=== PATIENT | male | born 1955 | race Caucasian/White ===

== ENCOUNTER 2019-02-09 12:21 | Outpatient (CLI) | payer BC, SELFPAY ==
[2019-02-09 13:40] LABS: TSH (W/Ref FT4) 1.81 uIU/mL (0.358-3.74)
[2019-02-09 13:56] LABS: Vitamin D 25 Total 25.3 ng/ml (30-100)
[2019-02-10 09:18] LABS: PSA, Screening 0.2 ng/ml (0-4.5)
== END 2019-02-09 12:41 ==
PROVIDERS: PCP Student in an Organized Health Care Education/Training Program; Visit Provider Student in an Organized Health Care Education/Training Program
DX: E03.9 Hypothyroidism, unspecified (principal); E59 Dietary selenium deficiency; Z80.42 Family history of malignant neoplasm of prostate; Z12.5 Encounter for screening for malignant neoplasm of prostate
CPT/HCPCS: 36415; 82306; 84153; 84443

== ENCOUNTER 2019-03-23 01:34 | Outpatient (CLI) | payer BC, SELFPAY ==
--- NOTE | 2019-03-23 11:00 | DI.CTLCSR_ITS ---
SYMPTOM/DIAGNOSIS: H/O SMOKING, WITH FOCAL CHANGES ON CT IN 12/1017, Z87.891,Z12.[address] FOR LUNG CANCER SCREENING: Comparison is made with 01/15/18. A low dose noncontrast exam was performed. The heart size is normal. No pleural or pericardial effusions or adenopathy is seen. There is a stable tiny nodule in the right lower lobe. No additional nodules are identified. There are no suspicious bony abnormalities. IMPRESSION: Lung rads, category 2. Stable 3 mm. nodule in the right lower lobe. Lung-RAD Category: Lung RADS Category 2- Benign Appearance/Behavior
== END 2019-03-23 01:54 ==
PROVIDERS: PCP Student in an Organized Health Care Education/Training Program; Visit Provider Student in an Organized Health Care Education/Training Program
DX: Z12.2 Encounter for screening for malignant neoplasm of respiratory organs (principal); Z87.891 Personal history of nicotine dependence; R91.1 Solitary pulmonary nodule
CPT/HCPCS: G0297

== ENCOUNTER 2019-04-13 08:58 | Outpatient (CLI) | payer BC, SELFPAY ==
--- NOTE | 2019-04-13 09:40 | DI.RAD_ITS ---
SYMPTOM/DIAGNOSIS: RIGHT KNEE PJAIN, DJD RIGHT KNEE RIGHT KNEE: Three views. The lateral view is suboptimal. The ordering physician requested no repeat imaging. Mild narrowing is seen in the medial femoral tibial joint space. Mild periarticular spurring is seen in the medial femoral tibial joint and the posterior patella. The bones appear intact. The soft tissues are unremarkable. IMPRESSION: Mild osteoarthritis right knee.
== END 2019-04-13 09:18 ==
PROVIDERS: PCP Student in an Organized Health Care Education/Training Program; Visit Provider Orthopaedic Surgery
DX: M25.561 Pain in right knee (principal); M17.11 Unilateral primary osteoarthritis, right knee
CPT/HCPCS: 73562

== ENCOUNTER 2019-06-06 12:02 | Emergency (ER) | payer BC, SELFPAY ==
[2019-06-06 12:05] VITALS: BP 153/80; PULSE 84; RESP 16; TEMP 36.6; O2SAT 96
[2019-06-06] MEDS: predniSONE 20 MG TAB 40 MG PO (14:16)
[2019-06-06] MEDS: diphenhydrAMINE 25 MG CAP PO (14:16)
--- NOTE | 2019-06-06 14:58 | ED.GENADUL_ITS ---
Discharge Plan Disposition Patient Disposition: HOME Condition: Improving Discharge Details Chief Complaint: RashLesion Clinical Impression: Urticaria of unknown origin Primary Care Provider: Lorie Holliday ED Provider: Jose Champange Home Meds and New Rx's Prescriptions: Continued (DME) lancets [OneTouch Delica Lancets] 33 gauge misc 1 ea Miscellaneous DAILY Qty: 90 RF: 3 cholecalciferol (vitamin D3) [Vitamin D3] 1,000 UNIT capsule 1,000 unit PO BID Qty: 100 RF: 6 (DME) OneTouch Verio 1 EACH strip 1 ea Miscellaneous DAILY Qty: 90 RF: 3 levothyroxine 75 mcg tablet 75 mcg PO DAILY Qty: 90 RF: 3 omeprazole 20 mg capsule,delayed release(DR/EC) 20 mg PO DAILY Qty: 90 RF: 1 oxycodone 15 mg tablet 15 mg PO Q8H MDD 3 Qty: 84 RF: 0 methadone 10 mg tablet 10 mg PO HS MDD 15mg Qty: 14 RF: 0 methadone 5 mg tablet 5 mg PO DAILY MDD 15mg Qty: 14 RF: 0 No Action red yeast rice 600 mg capsule 1,200 mg PO DAILY RF: 0 clonidine HCl 0.1 mg tablet 0.1 mg PO BID Qty: 180 RF: 3 methadone 10 mg tablet 10 mg PO Q6H MDD 1.5 Qty: 21 RF: 0 Discharge Instructions Instructions: Urticaria (ED) Additional Instructions: Return to the emergency department for any new or significant worsening of symptoms, difficulty breathing, rapid spread of the rash. Otherwise take medication as prescribed and follow-up with your primary care provider as needed. It is recommended that you stop your new mouthwash as this may be contributing to your symptoms and call your dental provider. Referrals: Lorie Holliday, [Primary Care Provider] - (As needed for reassessment) Discharge Data Discharge Date/Time-TO BE ENTERED AT DEPARTURE: 06/06/19 15:11 Medical Decision Making Patient presenting to the emergency department for chief complaint of hives and rash. Patient states that he started noticing this last night and is continued to spread throughout today. Patient states that he was exposed to some Freon when repairing her freezer yesterday but mostly sprayed in his face compared to anywhere else. Upon further questioning patient does state that he started a new mouthwash rinse that was given him to by his dentist 2 days ago. Physical exam shows no respiratory distress, patent airway, lips tongue and oropharynx are all normal with clear lung sounds no stridor no swelling no wheezing. Patient does have diffuse urticaria mostly on upper extremities, neck, back, and inner thighs. Patient states that this is not where the Freon sprayed so that this seems abnormal. Concern for this possibly being related to the medicated mouthwash that patient started. He was informed to stop this. I do not feel that patient needs epinephrine at this time but patient was given prednisone, Benadryl, and Zantac. Patient reassessed and shows no new or worsening symptoms and some improvement of urticaria. Patient was placed upon Zantac and prednisone and they state they have at home Claritin or can continuous pickling line pickler Benadryl which I feel is appropriate for any further itching. Return precautions were discussed. After discussion of diagnosis and plan of care patient has no further needs, questions, or concerns and states clear understanding to return to the emergency department for any worsening symptoms. HPI General Mode of arrival: ambulatory . Date/Time Provider Initiated Documentation: 06/06/19 12:15 . Limitations to Documentation: no limitations . Information obtained by: patient and RN notes reviewed . History of Present Illness 63 year old M presents to the emergency department with the chief complaint of rash, Quality is described as other (denies pain, states itching), Patient started experiencing this day(s) (1) and it has been c onstant. No relieving factors improve symptom(s), Patient notes no other symptoms.. Patient did receive the following treatments prior to arrival, none Related Data Home Medications Medication Instructions Recorded Confirmed cholecalciferol (vitamin D3) 1,000 unit PO BID #100 tab-cap 02/12/18 06/10/19 [Vitamin D3] OneTouch Verio #90 strip 05/26/18 06/10/19 levothyroxine 75 mcg tablet 75 mcg PO DAILY #90 tab-cap 11/18/18 06/10/19 lancets 33 gauge #90 ea 01/07/19 06/10/19 omeprazole 20 mg capsule,delayed 20 mg PO DAILY #90 cap 03/16/19 06/10/19 release oxycodone 15 mg tablet 15 mg PO Q8H #84 tab MDD 3 04/21/19 06/10/19 methadone 10 mg tablet 10 mg PO HS #14 tab MDD 15mg 05/21/19 06/10/19 methadone 5 mg tablet 5 mg PO DAILY #14 tab MDD 15mg 05/22/19 06/10/19 clonidine HCl 0.1 mg tablet 0.1 mg PO BID #180 tab-cap 06/10/19 06/10/19 methadone 10 mg tablet 10 mg PO Q6H #21 tab MDD 1.5 06/10/19 06/10/19 red yeast rice 600 mg capsule 1,200 mg PO DAILY cap 06/10/19 06/10/19 Previous Rx's Medication Instructions Recorded cholecalciferol (vitamin D3) 1,000 unit PO BID #100 tab-cap 02/12/18 [Vitamin D3] OneTouch Verio #90 strip 05/26/18 levothyroxine 75 mcg tablet 75 mcg PO DAILY #90 tab-cap 11/18/18 lancets 33 gauge #90 ea 01/07/19 omeprazole 20 mg capsule,delayed 20 mg PO DAILY #90 cap 03/16/19 release oxycodone 15 mg tablet 15 mg PO Q8H #84 tab MDD 3 04/21/19 methadone 10 mg tablet 10 mg PO HS #14 tab MDD 15mg 05/21/19 methadone 5 mg tablet 5 mg PO DAILY #14 tab MDD 15mg 05/22/19 clonidine HCl 0.1 mg tablet 0.1 mg PO BID #180 tab-cap 06/10/19 methadone 10 mg tablet 10 mg PO Q6H #21 tab MDD 1.5 06/10/19 Allergies Allergy/AdvReac Type Severity Reaction Status Date / Time escitalopram oxalate AdvReac Intermediate palpitation Verified 06/10/19 17:14 [From Lexapro] s paroxetine AdvReac Intermediate DIZZINESS Verified 06/10/19 17:14 General Stated Complaint: RashLesion BRI: 4 Review of Systems Constitutional Denies body ache(s), Denies fever(s) and Denies headache(s) ENT Denies headache(s), Denies lip swelling, Denies throat swelling and Denies tongue swelling Musculoskeletal Denies myalgias, Denies arthralgias and Denies joint swelling Integumentary/Breasts Reports as per HPI, Denies erythema and Reports rash Neurologic Denies headache(s) and Denies paresthesias Allergic/Immunologic Denies lip swelling, Denies throat swelling and Denies tongue swelling [facility] Social History (Updated 03/17/19 @ 10:01 by Sugar Brock MD) Smoking/Tobacco Use Status: Former Tobacco Use Alcohol Intake: current Alcohol Intake frequency: holidays/special occasions only Drug use: Never Substance use type: does not use Adopted: No Household members: spouse Housing: house Number of Children: 2 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 - [employer] What type of physical activity do you participate in: walking Seatbelt use: always Drive intox or ride w/intox 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 Working smoke detector in home: Yes Fire extinguisher in home: Yes Carbon monox detector in home: Yes Do you feel safe in your relationship?: Yes Additional Social history: pt is here with ; not alone to answer privately Exam Const General: cooperative, no acute distress and not ill appearing Orientation: alert, awake and oriented x3 HENMT Mouth: oral mucosae normal, lip normal, tongue normal and moist mucous membranes Throat: posterior oropharynx normal, tonsils normal and uvula midline Resp Effort & Inspection: normal respiratory effort, able to speak in complete sentences and no respiratory distress Auscultation: clear to auscultation bilaterally Cardio Rate: regular rate Rhythm: regular rhythm Heart Sounds: S1 normal and S2 normal Skin Rashes: rashes noted urticaria diffuse multiple locations borders raised and color red; nontender Course Vital Signs Temperature 36.6 C 06/06/19 12:05 Pulse 84 06/06/19 12:05 Respiratory Rate 16 06/06/19 12:05 Blood Pressure 153/80 H 06/06/19 12:05 Pulse Oximetry 96 06/06/19 12:05 Temperature 36.6 C 06/06/19 12:05 Temperature Source Skin 06/06/19 12:05 Pulse 84 06/06/19 12:05 Respiratory Rate 16 06/06/19 12:05 Respiratory Effort Non-Labored 06/06/19 12:07 Blood Pressure 153/80 H 06/06/19 12:05 Pulse Oximetry 96 06/06/19 12:05 Pain Level 10 06/06/19 12:05
== END 2019-06-06 15:11 | disposition home or self-care (01) ==
PROVIDERS: Emergency Provider Nurse Practitioner Family; PCP Student in an Organized Health Care Education/Training Program
DX: L50.9 Urticaria, unspecified (principal)
CPT/HCPCS: 99283; J7512

== ENCOUNTER 2019-06-25 11:36 | Inpatient (IN) | payer BC, SELFPAY ==
[2019-06-25] VITALS (66 sets, daily range): BP systolic 106–160; BP diastolic 43–90; PULSE 82–143; RESP 1–29; TEMP 36.5–37.5; O2SAT 91–98
--- NOTE | 2019-06-25 11:32 | ED.GENADUL_ITS ---
Discharge Plan Disposition Patient Disposition: [facility] INPATIENT Condition: Stable Discharge Details Chief Complaint: Allergic Clinical Impression: Anaphylactic reaction to bee sting, Urticaria Admit Date/Time: 06/27/19 09:35 Admit Provider: Jeovany Garza Attending Provider: Jeovany Garza Primary Care Provider: Lorie Holliday ED Provider: Lyn Morfin Discharge Data Discharge Date/Time-TO BE ENTERED AT DEPARTURE: 06/25/19 18:55 Medical Decision Making 63-year-old male with a history of chronic neck and back pain chronically on narcotic pain meds including methadone who presents with allergic reaction status post bee sting. Was given EpiPen per his and started on IV fluids per EMS. Heart rate 120s. Patient speaking in full sentences and airway appears intact. He has rhonchi at bases bilaterally. O2 sat 94% on 2 L. Blood pressure within normal limits. Patient vomited during my evaluation. We will continue IV fluids, Solu-Medrol, Benadryl, Pepcid, Compazine and give DuoNeb. and patient informed that they will be here at least 4 to 6 hours after epinephrine injection. 1300 --patient states he feels much better. Patient has been sleeping comfortably and denies a complaint of nausea or shortness of breath. States his rash is resolved. vitals within normal limits. 1500 --patient ambulated to the bathroom and return to room and his rash returned. He is noted to have an erythematous rash to his right arm, neck and around both ears. He states he has a history of reflux and feels that he has acid taste in his mouth. He denies any chest pain or shortness of breath. Lungs clear. Vitals within normal limits. Will give a second dose of Benadryl, and IV dose of Zantac and give another liter IV fluids and continue to observe. 1655 --rash around neck and ears near resolved, but rash on arms spreading to upper chest. Patient denies any complaint of nausea, vomiting or shortness of breath. Will give a second dose of IV steroids and reassess. 1800 --Rash spreading on torso. Pt c/o diffuse pruritis. Denies sob, n/v. He is hemodynamically stable. feels nervous taking pt home. Will admit for observation overnight and continued treatment of symptoms. 182 --D/w hospitalist - accepts pt for admission. Medical Records Medical records reviewed: Yes I reviewed the patient's medical records. Lab Data Lab results reviewed: Yes I reviewed the patient's lab results. ECG Data Attestation: I personally reviewed and interpreted this ECG (s) as follows: Interpretation: rate of 112, sinus, no acute ST elevation or depression, NC 144, QTc 491. QRS 98. HPI General Mode of arrival: ambulatory . Date/Time Provider Initiated Documentation: 06/25/19 11:44 . Limitations to Documentation: no limitations . Information obtained by: patient . HPI Narrative: Patient is a 63-year-old male with a history of chronic neck and back pain on methadone, oxycodone and clonidine who presents with dizziness, difficulty breathing and rash since stung by multiple bees prior to arrival. Patient states he was mowing the lawn when he was stung by what he thinks are hornets on both legs. He states he went inside the house and took a hot shower and became dizzy and passed out for a couple seconds. states she had an EpiPen and injected him around 1040am. states then she called EMS and upon their arrival, patient complained of nausea and had 2 more brief syncopal episodes lasting 1 to 2 seconds. Patient was started on IV fluids and given a dose of Zofran per EMS. Patient states he feels significantly better now. He denies any throat swelling or itching, or abdominal pain. Patient denies any other new exposures including new foods or new meds. Related Data Home Medications Medication Instructions Recorded Confirmed cholecalciferol (vitamin D3) 1,000 unit PO BID #100 tab-cap 02/12/18 06/25/19 [Vitamin D3] OneTouch Verio #90 strip 05/26/18 06/10/19 levothyroxine 75 mcg tablet 75 mcg PO DAILY #90 tab-cap 11/18/18 06/25/19 lancets 33 gauge #90 ea 01/07/19 06/10/19 omeprazole 20 mg capsule,delayed 20 mg PO DAILY #90 cap 03/16/19 06/25/19 release methadone 10 mg tablet 10 mg PO HS #14 tab MDD 15mg 05/21/19 06/25/19 methadone 5 mg tablet 5 mg PO DAILY #14 tab MDD 15mg 05/22/19 06/25/19 clonidine HCl 0.1 mg tablet 0.1 mg PO BID #180 tab-cap 06/10/19 06/25/19 red yeast rice 600 mg capsule 1,200 mg PO DAILY cap 06/10/19 06/25/19 oxycodone 15 mg tablet 15 mg PO Q8H #84 tab MDD 3 06/15/19 06/25/19 albuterol sulfate [ProAir HFA] 2 puff IH Q6H PRN #8.5 gm 06/28/19 cetirizine 20 mg PO HS #60 tab 06/28/19 diphenhydramine HCl 50 mg PO Q8H PRN PRN #30 cap 06/28/19 epinephrine [EpiPen 2-Philip] 0.3 mg IM ONCE #2 each 06/28/19 loratadine 20 mg PO DAILY #60 tab 06/28/19 montelukast 10 mg PO QPM #30 tab 06/28/19 prednisone 40 mg PO DAILY #4 tab 06/28/19 ranitidine HCl 150 mg PO BID #60 tab 06/28/19 Previous Rx's Medication Instructions Recorded cholecalciferol (vitamin D3) 1,000 unit PO BID #100 tab-cap 02/12/18 [Vitamin D3] OneTouch Verio #90 strip 05/26/18 levothyroxine 75 mcg tablet 75 mcg PO DAILY #90 tab-cap 11/18/18 lancets 33 gauge #90 ea 01/07/19 omeprazole 20 mg capsule,delayed 20 mg PO DAILY #90 cap 03/16/19 release methadone 10 mg tablet 10 mg PO HS #14 tab MDD 15mg 05/21/19 methadone 5 mg tablet 5 mg PO DAILY #14 tab MDD 15mg 05/22/19 clonidine HCl 0.1 mg tablet 0.1 mg PO BID #180 tab-cap 06/10/19 oxycodone 15 mg tablet 15 mg PO Q8H #84 tab MDD 3 06/15/19 albuterol sulfate [ProAir HFA] 2 puff IH Q6H PRN #8.5 gm 06/28/19 cetirizine 20 mg PO HS #60 tab 06/28/19 diphenhydramine HCl 50 mg PO Q8H PRN PRN #30 cap 06/28/19 epinephrine [EpiPen 2-Philip] 0.3 mg IM ONCE #2 each 06/28/19 loratadine 20 mg PO DAILY #60 tab 06/28/19 montelukast 10 mg PO QPM #30 tab 06/28/19 prednisone 40 mg PO DAILY #4 tab 06/28/19 ranitidine HCl 150 mg PO BID #60 tab 06/28/19 Allergies Allergy/AdvReac Type Severity Reaction Status Date / Time escitalopram oxalate AdvReac Intermediate palpitation Verified 06/25/19 11:44 [From Lexapro] s paroxetine AdvReac Intermediate DIZZINESS Verified 06/25/19 11:44 General Stated Complaint: RashLesion BRI: 3 Review of Systems Review of Systems All systems reviewed & are unremarkable except as noted in HPI and below Constitutional Reports as per HPI, Denies chills and Denies fever(s) Eyes Denies blurry vision ENT Denies dizziness, Denies sore throat and Denies throat swelling Cardiovascular Denies chest pain and Reports dyspnea Respiratory Denies cough and Reports dyspnea Gastrointestinal Denies abdominal pain, Denies diarrhea and Reports vomiting Genitourinary Denies hematuria and Denies dysuria Musculoskeletal Denies back pain and Denies numbness Integumentary/Breasts Denies lesions and Reports rash Neurologic Denies dizziness, Denies focal weakness and Denies numbness Allergic/Immunologic Denies throat swelling [facility] Medical History Adenomatous polyp of colon (Chronic 11/11/15) Adjustment disorder, unspecified (Acute 11/06/16) Bilateral low back pain without sciatica (Chronic 11/03/90) Cataract, congenital (Chronic 11/13/11) Cataracts, bilateral Chronic neck and back pain Chronic, continuous use of opioids Deafness Dyslipidemia Encounter for screening for lung cancer (Acute 09/06/17) Essential hypertension (Chronic 03/01/17) Fatty liver Gastroesophageal reflux disease without esophagitis (Chronic 11/13/11) GERD (gastroesophageal reflux disease) Hearing loss (Chronic 11/13/11) Hepatitis C Hyperlipidemia (Chronic 11/13/11) Hypertriglyceridemia (Chronic 11/13/11) Hypothyroidism (Chronic 12/02/12) Impaired fasting blood sugar Impaired fasting glucose (Acute 09/06/17) Left sided sciatica (Chronic 07/05/17) Migraine headache with aura (Chronic) Neck pain of over 3 months duration (Chronic 11/13/11) Other chronic pain (Chronic 09/17/90) Patent foramen ovale Patent foramen ovale (Chronic 11/13/11) Steatohepatitis, non-alcoholic (Chronic 11/13/11) Tobacco use Vitamin D deficiency (Chronic 03/20/13) Surgical History Arthroplasty of knee (06/27/11) COLONOSCOPY (11/02/15) Removal spinal cord stimulator and generator (04/16/18) Trigger Finger release (08/30/15) Family History Mother Diabetes Father Stroke Sister Age: 64 Personal history of malignant neoplasm Brother Age: 67 Personal history of malignant neoplasm Brother No problems noted. Brother No problems noted. 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 Working smoke detector in home: Yes Fire extinguisher in home: Yes Carbon monox detector in home: Yes Do you feel safe at home: Yes Do you feel safe in your relationship?: Yes Additional Social history: pt is here with ; not alone to answer privately Exam Const General: cooperative and acute distress moderate (appears uncomfortable/drowsy) Orientation: awake HENMT Head: normal to inspection Face and sinus: normal facial exam Eyes General: appearance normal, both eyes and all related structures EOM: EOM intact bilaterally Neck Neck: normal visual inspection and No submandibular swelling Lymphatic: no lymphadenopathy noted Chest Chest: normal inspection of the chest and no tenderness Resp Effort & Inspection: normal respiratory effort and able to speak in complete sentences Auscultation: rhonchi lower bilaterally Cardio Rate: tachycardic Rhythm: regular rhythm GI Inspection: normal to inspection Palpation: soft, not firm, not rigid and nontender Auscultation: normal bowel sounds Skin General skin exam: no rashes or lesions noted Neuro General: awake and oriented x3 Cognition: normal cognition Speech: speech normal Motor: muscle tone normal throughout Sensory Exam: no sensory deficits noted Extrem General: normal to inspection, full ROM, normal capillary refill, no calf tenderness bilaterally and no edema Psych Appearance: grossly normal Mental Status: mental status grossly normal Speech and Movement: speech and movement normal Affect: normal affect Course Vital Signs Temperature 97.7 F 06/25/19 11:24 Pulse 111 H 06/25/19 11:24 Respiratory Rate 22 06/25/19 11:24 Blood Pressure 160/90 H 06/25/19 11:24 Pulse Oximetry 93 L 06/25/19 11:24 Temperature 97.7 F 06/25/19 11:24 Temperature Source Temporal Artery Scan 06/25/19 11:24 Pulse 111 H 06/25/19 11:24 Respiratory Rate 22 06/25/19 11:24 Blood Pressure 160/90 H 06/25/19 11:24 Pulse Oximetry 93 L 06/25/19 11:24 Oxygen Delivery Method Nasal Cannula 06/25/19 11:24 Oxygen Flow Rate 0 06/25/19 11:24
[2019-06-25] MEDS: methylPREDNISolone SUCC 125 MG VIAL (11:38)
[2019-06-25] MEDS: FAMOTIDINE 20 MG/50 ML BAG 200 MG (11:39)
[2019-06-25] MEDS: diphenhydrAMINE 50 MG/ML VIAL (11:39)
[2019-06-25] MEDS: Albuterol/Ipratropium 3 ML UPD VIAL UPD (12:00)
[2019-06-25] MEDS: Normal Saline 1,000 ML 1000 ML IV ×2 (13:43→15:39)
[2019-06-25] MEDS: diphenhydrAMINE 50 MG/ML VIAL 25 MG IV (15:37)
[2019-06-25] MEDS: Normal Saline 50 ML 200 ML (15:38)
[2019-06-25] MEDS: Prochlorperazine 10 MG/2 ML VIAL (15:40)
[2019-06-25] MEDS: methylPREDNISolone SUCC 125 MG VIAL IVP (17:16)
[2019-06-25] MEDS: oxyCODONE 10 MG TAB (18:12)
[2019-06-25] MEDS: oxyCODONE 5 MG TAB (18:13)
[2019-06-25] MEDS: hydrOXYzine HCL 25 MG TAB (18:14)
--- NOTE | 2019-06-25 19:24 | HPE_ITS ---
Date of service: 06/25/19 Time of Service: 19:25 Assessment and Plan (1) Hymenoptera allergy: Current visit: Yes Status: Acute continue scheduled doses of benadryl 50 mg IV Q6hr for next 12-18 hr then switch to po benadryl prn; continue iv solumedrol 80 mg IV Q8hr overnight then switch to po prednisone. Patient will need Rx for epipen and should keep benadryl and prednisone on hand for any future reactions. (2) Urticaria of entire body: Current visit: Yes Status: Acute as above. also would advise him to see allergy and immunology as he has had two separate incidences of acute urticaria one of which was not necessarily precipitated by insect sting. History of Present Illness Chief Complaint: allergic reaction to bees Narrative: Patient was mowing his yard when he received multiple stings from what he thought were bees or hornets. He did not see them but they stung him on his legs and got into his socks. He went inside to wash off when he became dizzy and called his to tell her that he was having trouble breathing and felt like he was going to pass out. According to his he did pass out for a few seconds then came around but then passed out again. She called EMS and use her Epipen and injected him around 10:40 a.m. Upon arrival of EMS he was nauseated and dizzy and passed out again. He was given Zofran and iv fluids by EMS but according to the he did not receive any more epinephrine. He denies any difficulty swallowing or swelling of his mouth or tongue. Upon arrival he was wheezing and tachypneic and was given a DuoNeb treatment and then treated w/ iv corticosteroids, benadryl, pepcid and zantac. He says that he had another recent insect sting by what he thought was a bee approximately 3 weeks prior but only had localized itching and rash over the insect sting on his leg. He also presented to the ER on 06/06 with generalized urticaria which he thought was associated w/ exposure to Freon while working on a refrigerator or due to some mouth wash prescribed by his dentist. The patient was treated today in the ER by Dr. Morfin w/ solumedrol 125 mg X 2doses (11:29 am and 17:08) and benadryl 50 mg (11:;29 am) and 25 mg IV (15:12) and atarax 25 mg (18:08) and pepcid 20 mg iv (11:29 am) and ranitidine 50 mg iv (15:12) and Duobneb (11:44 am). Initially he improved and his hives resolved but later in the afternoon his hives returned w/ spreading over his face, neck trunk and upper and lower limbs. However, he has had no further chest tightness nor dyspnea and no difficulty swallowing. He is being admitted overnight for further benadryl and methylprednisolone iv for treatment of late phase reaction to his insect stings. I advised the patient and his that he ought to carrry epinephrine injectable and benadryl and prednisone with him in the future in the event he has further reactions. Also in light of his recent urticaria event that was not temporally associated w/ insect stings, he should see an automation engineering manager to be evaluated for idiopathic urticaria. Review of Systems Review of Systems All systems reviewed & are unremarkable except as noted in HPI and below [facility] Medical History Adenomatous polyp of colon (Chronic 11/11/15) Adjustment disorder, unspecified (Acute 11/06/16) Bilateral low back pain without sciatica (Chronic 11/03/90) Cataract, congenital (Chronic 11/13/11) Cataracts, bilateral Chronic neck and back pain Chronic, continuous use of opioids Deafness Dyslipidemia Encounter for screening for lung cancer (Acute 09/06/17) Essential hypertension (Chronic 03/01/17) Fatty liver Gastroesophageal reflux disease without esophagitis (Chronic 11/13/11) GERD (gastroesophageal reflux disease) Hearing loss (Chronic 11/13/11) Hepatitis C Hyperlipidemia (Chronic 11/13/11) Hypertriglyceridemia (Chronic 11/13/11) Hypothyroidism (Chronic 12/02/12) Impaired fasting blood sugar Impaired fasting glucose (Acute 09/06/17) Left sided sciatica (Chronic 07/05/17) Migraine headache with aura (Chronic) Neck pain of over 3 months duration (Chronic 11/13/11) Other chronic pain (Chronic 09/17/90) Patent foramen ovale Patent foramen ovale (Chronic 11/13/11) Steatohepatitis, non-alcoholic (Chronic 01/10/12) Tobacco use Vitamin D deficiency (Chronic 03/20/13) Surgical History Arthroplasty of knee (06/27/11) COLONOSCOPY (11/02/15) Removal spinal cord stimulator and generator (04/16/18) Trigger Finger release (08/30/15) Family History Mother Diabetes Father Stroke Sister Age: 64 Personal history of malignant neoplasm Brother Age: 67 Personal history of malignant neoplasm Brother No problems noted. Brother No problems noted. 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 - [employer] What type of physical activity do you participate in: walking Seatbelt use: always Drive intox or ride w/intox auto parts delivery driver: No Working smoke detector in home: Yes Fire extinguisher in home: Yes Carbon monox detector in home: Yes Do you feel safe at home: Yes Do you feel safe in your relationship?: Yes Additional Social history: pt is here with ; not alone to answer privately Meds Home Medications Medication Instructions Recorded Confirmed Type cholecalciferol (vitamin D3) 1,000 unit PO BID #100 tab-cap 02/12/18 06/25/19 Rx [Vitamin D3] OneTouch Verio #90 strip 05/26/18 06/10/19 Rx levothyroxine 75 mcg tablet 75 mcg PO DAILY #90 tab-cap 11/18/18 06/25/19 Rx lancets 33 gauge #90 ea 01/07/19 06/10/19 Rx omeprazole 20 mg capsule,delayed 20 mg PO DAILY #90 cap 03/16/19 06/25/19 Rx release methadone 10 mg tablet 10 mg PO HS #14 tab MDD 15mg 05/21/19 06/25/19 Rx methadone 5 mg tablet 5 mg PO DAILY #14 tab MDD 15mg 05/22/19 06/25/19 Rx clonidine HCl 0.1 mg tablet 0.1 mg PO BID #180 tab-cap 06/10/19 06/25/19 Rx red yeast rice 600 mg capsule 1,200 mg PO DAILY cap 06/10/19 06/25/19 History oxycodone 15 mg tablet 15 mg PO Q8H #84 tab MDD 3 06/15/19 06/25/19 Rx Allergies Allergy/AdvReac Type Severity Reaction Status Date / Time escitalopram oxalate AdvReac Intermediate palpitation Verified 06/25/19 11:44 [From Lexapro] s paroxetine AdvReac Intermediate DIZZINESS Verified 06/25/19 11:44 Exam Const General: cooperative, in distress (secondary to the urticaria) mild and anxious Nutritional Appearance: average body habitus Orientation: alert, awake and oriented x3 HENMT Head: normal to inspection, no palpable skull fracture, normocephalic and atraumatic Ears: hearing grossly normal bilaterally Mouth: oral mucosae normal, lip normal, tongue normal, oropharynx normal and other (no edema of his tongue or uvula) Throat: posterior oropharynx normal and uvula midline Eyes General: appearance normal, both eyes and all related structures Alignment and Position: alignment normal Periorbital: periorbital findings normal Eyelids: eyelids normal Conjunctivae: conjunctivae normal Sclera: sclerae normal Cornea: corneas normal Pupils: PERRL EOM: EOM intact bilaterally Neck Neck: normal visual inspection, full ROM, no lymphadenopathy, no meningeal signs, trachea midline and no JVD Carotids: normal carotid upstroke Lymphatic: no lymphadenopathy noted Resp Effort & Inspection: normal respiratory effort and able to speak in complete sentences Auscultation: clear to auscultation bilaterally Cardio Jugular venous pressure: no JVD Palpation: normal PMI Rate: regular rate Rhythm: regular rhythm Heart Sounds: S1 normal, S2 normal, normal, physiologic split S2, no gallops, no murmurs and no rubs Pulses: normal peripheral pulses GI Inspection: normal to inspection Palpation: soft and no hepatosplenomegaly Percussion: normal to percussion Auscultation: normal bowel sounds Skin Rashes: rashes noted urticaria diffuse full body Neuro General: alert, awake, oriented x3, moves all extremities and no focal motor deficits Cognition: normal cognition Speech: speech normal Psych Appearance: grossly normal Mental Status: mental status grossly normal Speech and Movement: speech and movement normal Mood: congruent mood Affect: normal affect Attitude: cooperative Thought Process: normal Thought Content: normal Insight: insight good Judgment: judgment good Results Last Vital Signs Temp 36.5 C 06/25/19 19:07 Pulse 90 06/25/19 19:07 Resp 15 06/25/19 19:07 BP 129/64 06/25/19 19:07 Pulse Ox 98 06/25/19 19:07
[2019-06-25 20:05] LABS: Abs Immature Grans 0.04 k/cumm (0.0-0.09); Absolute Basophil Count 0.01 k/cumm (0.0-0.2); Absolute Lymphocyte Count 0.49 k/cumm (1.2-3.4); Absolute Monocyte Count 0.25 k/cumm (0.11-0.7); Absolute Neutrophil Count 12.11 k/cumm (1.2-6.7); Basophils % 0.1; HCT 42.5 % (40.0-50.0); HGB 14.8 g/dL (13.5-17.5); Immature Grans % 0.3; Lymphocytes % 3.8; Mean Corp. HGB Concentration 34.8 g/dL (32.0-36.0); Mean Corpuscular Volume 89.1 fL (80-95); Mean Platelet Volume 9.9 fL (8.0-11.0); Monocytes % 1.9; Neutrophils % 93.9; Platelet Count 278 x1000/uL (130-400); RBC 4.77 m/cumm (4.50-6.00); RBC Distribution Width 12.7 % (11.8-14.1)
[2019-06-25 20:08] LABS: ALT 34 U/L (12-78); AST 22 U/L (15-37); Albumin 3.1 g/dL (3.4-5.0); Alkaline Phosphatase 48 U/L (46-116); Anion Gap 15.4 mmol/L (3-11); BUN 19 mg/dL (7-18); Bilirubin, Total 0.6 mg/dL (0.2-1.0); CO2 21.6 mmol/L (21.0-32.0); CREATININE 1.28 mg/dL (0.70-1.30); Chloride 107 mmol/L (98-107); Estimated GFR 56.58 (mL/min/1.73m2); Glucose 215 mg/dL (70-100); Potassium 4.5 mmol/L (3.5-5.1); Sodium 144 mmol/L (136-145); Total Protein 6.3 g/dL (6.4-8.2)
[2019-06-25] MEDS: Cholecalciferol (Vitamin D3) 1,000 UNIT TAB 1000 UNITS PO (20:42)
[2019-06-25] MEDS: Enoxaparin 40 MG/0.4 ML SYR SC (20:43)
[2019-06-25] MEDS: cloNIDine 0.1 MG TAB PO (20:43)
[2019-06-25] MEDS: diphenhydrAMINE 50 MG/ML VIAL IVP (21:20)
[2019-06-25] MEDS: Methadone 10 MG TAB PO (22:02)
[2019-06-26] VITALS (16 sets, daily range): BP systolic 110–157; BP diastolic 61–76; PULSE 75–109; RESP 1–20; TEMP 36.6–37.4; O2SAT 94–97
[2019-06-26] MEDS: methylPREDNISolone SUCC 125 MG VIAL 80 MG IVP ×4 (00:15→23:25)
[2019-06-26] MEDS: oxyCODONE 15 MG TAB PO ×4 (00:16→21:12)
[2019-06-26] MEDS: Normal Saline Flush 10 ML SYR IVP ×6 (00:17→23:24)
[2019-06-26] MEDS: diphenhydrAMINE 50 MG/ML VIAL IVP ×4 (04:05→21:13)
[2019-06-26] MEDS: Levothyroxine 75 MCG TAB PO (06:20)
[2019-06-26 06:49] LABS: Anion Gap 15.8 mmol/L (3-11); BUN 27 mg/dL (7-18); CO2 21.2 mmol/L (21.0-32.0); Calcium 8.3 mg/dL (8.5-10.1); Chloride 114 mmol/L (98-107); Estimated GFR 51.02 (mL/min/1.73m2); Glucose 235 mg/dL (70-100); HCT 37.3 % (40.0-50.0); HGB 12.7 g/dL (13.5-17.5); Mean Corpuscular Hemoglobin 30.8 pg (27.0-33.0); Mean Corpuscular Volume 90.5 fL (80-95); Mean Platelet Volume 10.1 fL (8.0-11.0); Platelet Count 258 x1000/uL (130-400); RBC 4.12 m/cumm (4.50-6.00); RBC Distribution Width 12.7 % (11.8-14.1); Sodium 151 mmol/L (136-145); White Blood Cell Count 8.72 k/cumm (4.4-10.8)
[2019-06-26] MEDS: Normal Saline 1,000 ML 100 ML IV ×2 (07:23→17:26)
[2019-06-26] MEDS: Omeprazole 20 MG CAPCR PO (07:57)
[2019-06-26] MEDS: cloNIDine 0.1 MG TAB PO ×2 (07:57→20:04)
[2019-06-26] MEDS: Cholecalciferol (Vitamin D3) 1,000 UNIT TAB 1000 UNITS PO ×2 (07:57→20:04)
[2019-06-26] MEDS: Methadone 5 MG TAB PO (07:57)
[2019-06-26] MEDS: Albuterol 2.5 MG/3 ML INH SOLN VIAL UPD (08:19)
[2019-06-26] MEDS: hydrOXYzine HCL 25 MG TAB PO ×3 (08:21→20:04)
[2019-06-26] MEDS: EPINEPHrine for Inhalation 0.5 ML VIAL UPD (09:06)
[2019-06-26] MEDS: Sodium Chloride 0.9% for Inhalation 3 ML VIAL UPD (09:12)
--- NOTE | 2019-06-26 09:23 | PHARADMIT ---
Addendum entered by Mary Jane Dominguez 06/27/19 11:20: Pharmacy Note Subjective pt still having hives per morning report; MD to talk to allergy at [facility] Objective BP-160/78 other VS okay Na+131 wbc-11.69(up) BG-222 Assessment -pt transitioned from scheduled hydroxyzine/benadryl to zyrtec/loratadine with PRN benadryl -montelukast and ranitidine ordered -bolus steroid dose this morning before changing pt to PO steroids starting tomorrow Plan possible discharge tomorrow if symptoms improve, with outpt allergy referral Original Note: Admission Pharmacy Clinical Review ALLERGIC REACTION TO BEE STING Code Status Full Code Current Weight wgt-79.1 kg Renally Cleared and Narrow Therapeutic Index Meds CrCl~ 51 mL/min Meds-OK QTc Value / Action Taken none current BP Control, Fever BP-133/76 Tmax-37.4C Electrolytes reviewed Na-151 K+5.0 DVT Prophylaxis Lovenox 40mg Opiate Usage / Scheduled Bowel Regimen Ordered Methadone, Oxycodone, No bm Meds Plt/SCr for Heparin / Enoxaparin Plts-258 SCr-1.40 INR for Warfarin NA H/H stable, WBC/Bands H&H-12.7/37.3 WBC-8.72 Antibiotic appropriateness na Cultures and Sensitivities na Surgical ABX d/c within 24 hr na DM control / Insulin Dosing BG-235 Heart Failure (Check EF%) (BETTE's, B-Block, Diuretics) none IV to PO Switch No Home Meds Reviewed Yres Home Meds Not Ordered Naloxone spray, Red rice yeast, TAC Cream Comments
--- NOTE | 2019-06-26 10:10 | INITIAL_ITS ---
- If Service Date Differs Date of service: 06/26/19 Time of Service: 10:10 Care Management Initial Assess REASON FOR HOSPITALIZATION:: Allergic reaction to bee sting PAST MEDICAL HISTORY/PAST SURGICAL HISTORY:: Medical History. Adenomatous polyp of colon (Chronic 11/11/15). Adjustment disorder, unspecified (Acute 11/06/16). Bilateral low back pain without sciatica (Chronic 11/03/90). Cataract, congenital (Chronic 11/13/11). Cataracts, bilateral. Chronic neck and back pain. Chronic, continuous use of opioids. Deafness. Dyslipidemia. Encounter for screening for lung cancer (Acute 09/06/17). Essential hypertension (Chronic 03/01/17). Fatty liver. Gastroesophageal reflux disease without esophagitis (Chronic 11/13/11). GERD (gastroesophageal reflux disease). Hearing loss (Chronic 11/13/11). Hepatitis C. Hyperlipidemia (Chronic 11/13/11). Hypertriglyceridemia (Chronic 11/13/11). Hypothyroidism (Chronic 12/02/12). Impaired fasting blood sugar. Impaired fasting glucose (Acute 09/06/17). Left sided sciatica (Chronic 07/05/17). Migraine headache with aura (Chronic). Neck pain of over 3 months duration (Chronic 11/13/11). Other chronic pain (Chronic 09/17/90). Patent foramen ovale. Patent foramen ovale (Chronic 11/13/11). Steatohepatitis, non-alcoholic (Chronic 11/13/11). Tobacco use. Vitamin D deficiency (Chronic 03/20/13). Surgical History. Arthroplasty of knee (06/27/11). COLONOSCOPY (11/02/15). Removal spinal cord stimulator and generator (04/16/18). 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 They live together in [facility]. Their kids are grown and out of the house, and both reside in [place]. They have three grandkids. Myron is independent at baseline. CURRENT FUNCTIONAL STATUS:: Myron was laying in his bed at a slight incline. He was awake and alert and talking with his when CM entered the room. He was pleasant to speak with and is forthcoming with the details of his life and care he has received here. He is very happy with his experience with the ambulance, the ED, and as an inpatient. ADVANCE DIRECTIVES:: None on file. CM offered a copy while he is here, Myron declined. He said he would follow up at his PCP office. Has patient been provided with information about the portal?: Yes Did the patient sign up for the portal?: Yes (CM initiated sign up) CODE STATUS:: Full Code INSURANCE COVERAGE / FINANCIAL ISSUES:: BCBS CURRENT HOME/COMMUNITY SERVICES/EQUIPMENT:: No current services or equipment. PRIMARY CARE PHYSICIAN:: Dr. Lorie Holliday POTENTIAL DISCHARGE NEEDS:: Follow up with PCP, prescription for EPI pen. PATIENT/FAMILY EDUCATION NEEDS:: Discharge instructions, including instructions on use of EPI pen ANTICIPATED BARRIERS TO DISCHARGE:: None identified TRANSPORTATION:: Myron's , Ailin will drive him home. PLAN:: Myron will be discharged when medically ready. He will go home with no services and will resume his previous activities. He will be discharged with a prescription for an EPI pen.
--- NOTE | 2019-06-26 11:22 | CHAPLAIN ---
Myrno was resting in bed when I visited. His was with him. He told me the story of being stung by something while mowing the lawn, then taking a shower and suddenly finding it difficult to breath. His called 911 and was instructed to use her epie-pen. Myron states that he believes this saved his life. Fire Department personnel arrived shortly followed by the ambulance crew. Myron said he has was very pleased with the care he has received from everyone. Myron is a member of [employer]. I let him know that Fr. Duenas usually visits on Saturday afternoons.
--- NOTE | 2019-06-26 11:30 | W.PM.PROGNOT ---
Date of Service Date of service: 06/26/19 Time of Service: 11:30 Assessment and Plan (1) Hymenoptera allergy: Current visit: Yes Status: Acute Presumed reaction to Wasp sting - fortunately did not involve Respiratory or Cardiovascular compromise. Patient's symptoms of dyspnea, rash/urticaria appear to be recurrent despite current treatment, but appear to be less dramatic than initial presentation. - Continue IV steroids, H1 & H2 blockers. Also receiving Nebulized Albeterol, and Racemic Epi this morning. Has already received Epinephrine in the ED. - Will need continued monitoring at this time until no further reactions. Suspect another 12-24 hours are required. - Will need EpiPen at discharge, along with an allergy emergency plan - this was reviewed in detail today. Consider Production Planner outpatient follow-up as well. (2) Urticaria of entire body: Current visit: Yes Status: Acute (3) Hypernatremia: Current visit: Yes Status: Acute Evidence of KELVIN and hypernatremia - potentially due to intravascular depletion following allergic reaction. Continue hydration, and repeat BMP early this afternoon, with adjustment pending results. (4) KELVIN (acute kidney injury): Current visit: Yes Status: Acute As above. (5) DVT prophylaxis: Current visit: Yes Status: Acute SC Lovenox. Subjective Interval history since last seen: 63 year old man admitted from [facility] Emergency Department on 06/23 following an acute allergic reaction to a Wasp sting. Mr. Espana was doing yard work when he was stung by what he believes was a Wasp(s) - reportedly was stung on his legs and even got stuck in his socks, where he was stung multiple times. Upon returning inside his home to wash the area he experiences dizziness and subjective difficulty with breathing. His administered her own Epinephran shot to him and called EMS. The patient also experienced 2 syncopal episodes, once prior to the arrival of EMS and once again following. Upon presentation to the ED he was treated withIVFs, duonebs, Steroids, and H1/H2 blockers. His symptoms initially abated, but then returned later in the afternoon while being treated in the ED - this also included hives that initially resolved, but returned with spread over his face, neck, trunk, upper and lower extremities. He was admitted to continue monitoring while awaiting his allergic reaction to resolve. Of note, patient also reportedly was seen in the ED on 06/06 with generalized Urticaria, thought to be associated with exposure to Freon while working on a refrigerator vs. mouthwash prescribed by his dentist. This morning Mr. Espana feels vastly improved, but had another episode of urticarial rash with subjective difficulty breathing. No respiratory compromise or sensation of closure of the airway - rather with subjective dyspnea. No other events reported. Remains afebrile. Exam Narrative Exam Narrative: General: Patient appears comfortable, AAOX3, NAD Skin: Evidence of resolving hives, mainly around the ankles and upper trunk Neck: Supple CV: Regular, nontachycardic, S1S2, No rubs, murmurs, or gallops. Pulmonary: Clear to auscultation bilaterally, no crackles, wheezing, or rhonchi Abdomen: + Bowel Sounds, soft, nontender, nondistended Vascular: No lower extremity edema Psych: Normal mood and affect. Objective Objective Clinical Data: Abnormal lab results 06/25/19 06/25/19 06/26/19 Range/Units 19:45 19:45 06:15 WBC 12.90 H (4.4-10.8) k/cumm RBC (4.50-6.00) m/cumm Hgb (13.5-17.5) g/dL Hct (40.0-50.0) % Absolute Neutrophils 12.11 H (1.2-6.7) k/cumm Absolute Lymphocytes 0.49 L (1.2-3.4) k/cumm Sodium 151 H (136-145) mmol/L Chloride 114 H (98-107) mmol/L Anion Gap 15.4 H 15.8 H (3-11) mmol/L BUN 19 H 27 H (7-18) mg/dL Creatinine 1.40 H (0.70-1.30) mg/dL Glucose 215 H 235 H (70-100) mg/dL Calcium 8.0 L 8.3 L (8.5-10.1) mg/dL Total Protein 6.3 L (6.4-8.2) g/dL Albumin 3.1 L (3.4-5.0) g/dL 06/26/19 Range/Units 06:15 WBC (4.4-10.8) k/cumm RBC 4.12 L (4.50-6.00) m/cumm Hgb 12.7 L D (13.5-17.5) g/dL Hct 37.3 L (40.0-50.0) % Absolute Neutrophils (1.2-6.7) k/cumm Absolute Lymphocytes (1.2-3.4) k/cumm Sodium (136-145) mmol/L Chloride (98-107) mmol/L Anion Gap (3-11) mmol/L BUN (7-18) mg/dL Creatinine (0.70-1.30) mg/dL Glucose (70-100) mg/dL Calcium (8.5-10.1) mg/dL Total Protein (6.4-8.2) g/dL Albumin (3.4-5.0) g/dL Vital Signs Temperature 36.6 C 06/26/19 10:10 Temperature Source Tympanic 06/26/19 10:10 Pulse 100 H 06/26/19 10:10 Pulse Rhythm Regular 06/26/19 08:00 Pulse 93 H 06/25/19 18:31 Respiratory Rate 18 06/26/19 10:10 Respiratory Effort Non-Labored 06/26/19 08:00 Respiratory Depth Normal 06/26/19 08:00 Respiratory Pattern Normal 06/26/19 08:00 Blood Pressure 128/61 06/26/19 10:10 Blood Pressure Mean 80 06/25/19 18:30 Pulse Oximetry 95 06/26/19 10:10 Oxygen Delivery Method Room Air 06/26/19 10:10 Oxygen Flow Rate 0 06/26/19 10:10 Pain Level 5 06/26/19 07:57 Comment 06/26/19 10:10 Intake & Output 06/25/19 06/25/19 06/26/19 11:59 23:59 11:59 Intake Total 1999 1211 / 1211 Output Total 400 / 400 Balance 1999 811 / 811 Weight 78.5 kg 78.5 kg 79.1 kg Intake: IV 1999 101 / 101 Oral 1110 / 1110 Output: Urine 400 / 400 Other: Urine Color Straw Urine Appearance Clear Urine Odor Normal Comment pt voiding independently in the toilet Voiding Methods Toilet Laboratory Results WBC 8.72 k/cumm (4.4-10.8) D 06/26/19 06:15 RBC 4.12 m/cumm (4.50-6.00) L 06/26/19 06:15 Hgb 12.7 g/dL (13.5-17.5) L D 06/26/19 06:15 Hct 37.3 % (40.0-50.0) L 06/26/19 06:15 MCV 90.5 fL (80-95) 06/26/19 06:15 MCH 30.8 pg (27.0-33.0) 06/26/19 06:15 MCHC 34.0 g/dL (32.0-36.0) 06/26/19 06:15 RDW 12.7 % (11.8-14.1) 06/26/19 06:15 Plt Count 258 x1000/uL (130-400) 06/26/19 06:15 MPV 10.1 fL (8.0-11.0) 06/26/19 06:15 Immature Gran % 0.3 06/25/19 19:45 93.9 06/25/19 19:45 3.8 06/25/19 19:45 1.9 06/25/19 19:45 0.0 06/25/19 19:45 0.1 06/25/19 19:45 Absolute Neutrophils 12.11 k/cumm (1.2-6.7) H 06/25/19 19:45 Absolute Lymphocytes 0.49 k/cumm (1.2-3.4) L 06/25/19 19:45 Absolute Monocytes 0.25 k/cumm (0.11-0.7) 06/25/19 19:45 Absolute Eosinophils 0.00 k/cumm (0.0-0.7) 06/25/19 19:45 Absolute Basophils 0.01 k/cumm (0.0-0.2) 06/25/19 19:45 Sodium 151 mmol/L (136-145) H 06/26/19 06:15 Potassium 5.0 mmol/L (3.5-5.1) 06/26/19 06:15 Chloride 114 mmol/L (98-107) H 06/26/19 06:15 Carbon Dioxide 21.2 mmol/L (21.0-32.0) 06/26/19 06:15 15.8 mmol/L (3-11) H 06/26/19 06:15 BUN 27 mg/dL (7-18) H 06/26/19 06:15 1.40 mg/dL (0.70-1.30) H 06/26/19 06:15 51.02 (mL/min/1.73m2) 06/26/19 06:15 Glucose 235 mg/dL (70-100) H 06/26/19 06:15 Calcium 8.3 mg/dL (8.5-10.1) L 06/26/19 06:15 0.6 mg/dL (0.2-1.0) 06/25/19 19:45 AST 22 U/L (15-37) 06/25/19 19:45 ALT 34 U/L (12-78) 06/25/19 19:45 48 U/L (46-116) 06/25/19 19:45 6.3 g/dL (6.4-8.2) L 06/25/19 19:45 3.1 g/dL (3.4-5.0) L 06/25/19 19:45
[2019-06-26 12:33] LABS: Anion Gap 15.7 mmol/L (3-11); BUN 27 mg/dL (7-18); CO2 21.3 mmol/L (21.0-32.0); CREATININE 1.44 mg/dL (0.70-1.30); Calcium 8.4 mg/dL (8.5-10.1); Chloride 105 mmol/L (98-107); Estimated GFR 49.39 (mL/min/1.73m2); Glucose 281 mg/dL (70-100); Sodium 142 mmol/L (136-145)
[2019-06-26] MEDS: Mylanta Suspension 30 ML CUP PO ×2 (14:00→22:28)
--- NOTE | 2019-06-26 15:39 | DM INPTCON_ITS ---
DESCRIPTION/ASSESSMENT: Appreciate diabetes consult for Mr. Espana who is hospitalized with allergic reaction to bee stings. He is currently on Prednisone 80mg q 8 hours. He takes no diabetes medicine and is just now prescribed insulin correction at the sensitive level. Blood sugars in 200s here without medication so far. A1c 6.1 Mr. Espana has been able to keep his A1c in the pre-diabetes range without medication. INTERVENTION: No intervention suggested at this time. He has had self management support in the past and this appears to work well for him. PLAN: Will follow blood sugars and f/u as needed.
[2019-06-26] MEDS: Insulin Aspart 300 UNITS/3 ML PEN SC (17:07)
[2019-06-26] MEDS: Enoxaparin 40 MG/0.4 ML SYR SC (20:04)
[2019-06-26] MEDS: Methadone 10 MG TAB PO (21:12)
[2019-06-27] VITALS (8 sets, daily range): BP systolic 160–174; BP diastolic 78–82; PULSE 65–83; RESP 16–18; TEMP 36.6–37.1; O2SAT 93–97
[2019-06-27] MEDS: hydrOXYzine HCL 25 MG TAB PO ×2 (00:10→05:59)
[2019-06-27] MEDS: Normal Saline 1,000 ML 100 ML IV (02:11)
[2019-06-27] MEDS: diphenhydrAMINE 50 MG/ML VIAL IVP ×2 (03:49→09:46)
[2019-06-27] MEDS: Normal Saline Flush 10 ML SYR IVP ×4 (03:49→18:37)
[2019-06-27] MEDS: Levothyroxine 75 MCG TAB PO (06:00)
[2019-06-27] MEDS: oxyCODONE 15 MG TAB PO ×3 (06:00→22:01)
[2019-06-27] MEDS: Insulin Aspart 300 UNITS/3 ML PEN SC ×3 (07:54→16:54)
[2019-06-27] MEDS: Cholecalciferol (Vitamin D3) 1,000 UNIT TAB 1000 UNITS PO ×2 (07:56→20:12)
[2019-06-27] MEDS: cloNIDine 0.1 MG TAB PO ×2 (07:56→20:12)
[2019-06-27] MEDS: Methadone 5 MG TAB PO (07:56)
[2019-06-27] MEDS: Omeprazole 20 MG CAPCR PO (07:56)
[2019-06-27] MEDS: methylPREDNISolone SUCC 125 MG VIAL 80 MG IVP (07:57)
[2019-06-27 08:21] LABS: Abs Immature Grans 0.02 k/cumm (0.0-0.09); Absolute Monocyte Count 0.58 k/cumm (0.11-0.7); Absolute Neutrophil Count 10.49 k/cumm (1.2-6.7); Anion Gap 3.6 mmol/L (3-11); BUN 25 mg/dL (7-18); CO2 25.4 mmol/L (21.0-32.0); CREATININE 0.93 mg/dL (0.70-1.30); Calcium 8.2 mg/dL (8.5-10.1); Chloride 102 mmol/L (98-107); Glucose 222 mg/dL (70-100); HCT 33.9 % (40.0-50.0); HGB 11.3 g/dL (13.5-17.5); Immature Grans % 0.2; Lymphocytes % 5.1; Magnesium 1.9 mg/dL (1.8-2.4); Mean Corp. HGB Concentration 33.3 g/dL (32.0-36.0); Mean Corpuscular Hemoglobin 30.6 pg (27.0-33.0); Mean Corpuscular Volume 91.9 fL (80-95); Mean Platelet Volume 10.5 fL (8.0-11.0); Neutrophils % 89.7; Platelet Count 219 x1000/uL (130-400); Potassium 3.5 mmol/L (3.5-5.1); RBC 3.69 m/cumm (4.50-6.00); RBC Distribution Width 12.8 % (11.8-14.1); Sodium 131 mmol/L (136-145); White Blood Cell Count 11.69 k/cumm (4.4-10.8)
[2019-06-27] MEDS: Mylanta Suspension 30 ML CUP PO ×2 (10:00→18:41)
--- NOTE | 2019-06-27 10:55 | W.PM.PROGNOT ---
Date of Service Date of service: 06/27/19 Time of Service: 10:55 Assessment and Plan (1) Hymenoptera allergy: Current visit: Yes Status: Acute Anaphylaxis on presentation - unclear if this is 1 or 2 phase anaphylaxis. The two syncopal episodes could have been to acute hypotension of anaphylactic shock. Discussed with Dr Herrera of allergy at [facility] [place] - recommendations listed in subjective. -Transition from scheduled atarax/benadryl to zyrtec/claritin with prn benadryl, add zantac and singulair, transition steroids to PO, check tryptase level. -will provide resources for med alert bracelent and teaching for epi pen use. -will need outpatient allergy referral for mast cell activation syndrome/mastocytosis and possible immunotherpy (2) Urticaria of entire body: Current visit: Yes Status: Acute as above. (3) Hypernatremia: Current visit: Yes Status: Acute Both hypernatremia and KELVIN have resolved. Continue IVF. (4) KELVIN (acute kidney injury): Current visit: Yes Status: Resolved As above. Cr at baseline. (5) Steroid-induced hyperglycemia: Current visit: Yes Status: Acute Continue carb consistent diet and SSI. (6) Other chronic pain: Current visit: No Status: Chronic Monitor on tele as is on chronic methadone. (7) DVT prophylaxis: Current visit: Yes Status: Acute SC Lovenox. (8) Discharge planning issues: Current visit: Yes Status: Acute Likely discharge home tomorrow if sx improve Needs: outpatient allergy referral. -med alert bracelet information -rx for epi pen (2 at a time) -avoid bees and wasps -be advised on sedation with driving -needs epi pen teaching Subjective Interval history since last seen: Nursing and patient report ongoing appearance of new itchy hives. The ones that appeared on his back are new today - he also reports hives in his ankles, suprapubic area, his right hand. Denies any respiratory symptoms today, difficulty swallowing, nausea, diarrhea. Reports GERD. Case was discussed with Dr Herrera of allergy at [facility] [place] - recommendations are: 1. To check tryptase level. 2. Will need allergy follow up as outpatient in 2-4 weeks in addition to outpatient workup for mast cell activation syndrome/mastocytosis. He may need a bone marrow biopsy. 3. On discharge, will need a med alert bracelet, prescription for epi pen (must have 2 on hand at all times), be warned about sedation with driving, must avoid bees/wasps. 4. For now, as intpatient, his regimen should be modified to -claritin 20 mg PO Q am -zyrtec 20 mg PO q HS -singulair 10 mg PO q HS -zantac 150 mg PO BID -benadryl and atarax should no longer be scheduled. Instead, may use benadryl 50 mg PO q8 hrs prn bothersome symptoms. If ineffective, trial hydroxyzine 25 mg Po Q8 hrs prn. If this does not work, doxepin should be considered. -steroids can be switched to PO today. He recommends a dose of 40-60 mg PO daily x 3 days. Exam Narrative Exam Narrative: General: Very pleasant, alert middle-aged male, A&Ox3, laying comfortably in bed, but is itchy, not observed to have any tachypnea/dyspnea HEENT: EOMI, MMM Heart: RRR, no m/r/g Lungs: coarse breath sounds B, but I do not hear wheezing. Good B air entry GI: abdomen is soft, nontender, nondistended Extremities: small hives a B ankles, one seen on R hand, no edema Skin: hives seen on Back, anterior neck, R hand, B ankles. Objective Objective Clinical Data: Abnormal lab results 06/26/19 06/27/19 06/27/19 Range/Units 12:12 08:05 08:05 WBC 11.69 H D (4.4-10.8) k/cumm RBC 3.69 L (4.50-6.00) m/cumm Hgb 11.3 L (13.5-17.5) g/dL Hct 33.9 L (40.0-50.0) % Absolute Neutrophils 10.49 H (1.2-6.7) k/cumm Absolute Lymphocytes 0.60 L (1.2-3.4) k/cumm Sodium 131 L (136-145) mmol/L Anion Gap 15.7 H (3-11) mmol/L BUN 27 H 25 H (7-18) mg/dL Creatinine 1.44 H (0.70-1.30) mg/dL Glucose 281 H 222 H (70-100) mg/dL Calcium 8.4 L 8.2 L (8.5-10.1) mg/dL Vital Signs Temperature 36.6 C 06/27/19 07:15 Temperature Source Temporal Artery Scan 06/27/19 07:15 Pulse 78 06/27/19 07:15 Pulse Rhythm Regular 06/27/19 08:12 Pulse 93 H 06/25/19 18:31 Respiratory Rate 16 06/27/19 07:15 Respiratory Effort Non-Labored 06/27/19 08:12 Respiratory Depth Normal 06/27/19 08:12 Respiratory Pattern Normal 06/27/19 08:12 Blood Pressure 160/78 H 06/27/19 07:15 Blood Pressure Mean 80 06/25/19 18:30 Pulse Oximetry 97 06/27/19 07:15 Oxygen Delivery Method Room Air 06/27/19 07:15 Oxygen Flow Rate 0 06/27/19 07:15 Pain Level 6 06/27/19 07:56 Comment 06/27/19 07:15 Intake & Output 06/26/19 06/26/19 06/27/19 11:59 23:59 11:59 Intake Total 1211 / 3101 1890 / 3101 2978.333 / 2978.333 Output Total 400 / 1400 1000 / 1400 600 / 600 Balance 811 / 1701 890 / 1701 2378.333 / 2378.333 Weight 79.1 kg Intake: IV 101 / 1751 1650 / 1751 1453.333 / 1453.333 Oral 1110 / 1350 240 / 1350 1525 / 1525 Output: Urine 400 / 1400 1000 / 1400 600 / 600 Other: Urine Color Straw Yellow Straw Urine Appearance Clear Clear Clear Urine Odor Normal Normal Normal Comment pt voiding independently in the toilet patient voids independently in the toilet Voiding Methods Toilet Toilet Toilet Laboratory Results WBC 11.69 k/cumm (4.4-10.8) H D 06/27/19 08:05 RBC 3.69 m/cumm (4.50-6.00) L 06/27/19 08:05 Hgb 11.3 g/dL (13.5-17.5) L 06/27/19 08:05 Hct 33.9 % (40.0-50.0) L 06/27/19 08:05 MCV 91.9 fL (80-95) 06/27/19 08:05 MCH 30.6 pg (27.0-33.0) 06/27/19 08:05 MCHC 33.3 g/dL (32.0-36.0) 06/27/19 08:05 RDW 12.8 % (11.8-14.1) 06/27/19 08:05 Plt Count 219 x1000/uL (130-400) 06/27/19 08:05 MPV 10.5 fL (8.0-11.0) 06/27/19 08:05 Immature Gran % 0.2 06/27/19 08:05 89.7 06/27/19 08:05 5.1 06/27/19 08:05 5.0 06/27/19 08:05 0.0 06/27/19 08:05 0.0 06/27/19 08:05 Absolute Neutrophils 10.49 k/cumm (1.2-6.7) H 06/27/19 08:05 Absolute Lymphocytes 0.60 k/cumm (1.2-3.4) L 06/27/19 08:05 Absolute Monocytes 0.58 k/cumm (0.11-0.7) 06/27/19 08:05 Absolute Eosinophils 0.00 k/cumm (0.0-0.7) 06/27/19 08:05 Absolute Basophils 0.00 k/cumm (0.0-0.2) 06/27/19 08:05 Sodium 131 mmol/L (136-145) L 06/27/19 08:05 Potassium 3.5 mmol/L (3.5-5.1) 06/27/19 08:05 Chloride 102 mmol/L (98-107) 06/27/19 08:05 Carbon Dioxide 25.4 mmol/L (21.0-32.0) 06/27/19 08:05 3.6 mmol/L (3-11) 06/27/19 08:05 BUN 25 mg/dL (7-18) H 06/27/19 08:05 0.93 mg/dL (0.70-1.30) D 06/27/19 08:05 >= 60.00 (mL/min/1.73m2) 06/27/19 08:05 Glucose 222 mg/dL (70-100) H 06/27/19 08:05 POC Glucose Cancelled 07/03/19 16:30 Calcium 8.2 mg/dL (8.5-10.1) L 06/27/19 08:05 Magnesium 1.9 mg/dL (1.8-2.4) 06/27/19 08:05 0.6 mg/dL (0.2-1.0) 06/25/19 19:45 AST 22 U/L (15-37) 06/25/19 19:45 ALT 34 U/L (12-78) 06/25/19 19:45 48 U/L (46-116) 06/25/19 19:45 6.3 g/dL (6.4-8.2) L 06/25/19 19:45 3.1 g/dL (3.4-5.0) L 06/25/19 19:45
[2019-06-27] MEDS: Normal Saline 1,000 ML 125 ML IV ×2 (11:26→19:50)
[2019-06-27] MEDS: methylPREDNISolone SUCC 125 MG VIAL IVP (11:28)
--- NOTE | 2019-06-27 12:07 | PDOC.CMPRO ---
- If Service Date Differs Date of service: 06/27/19 Time of Service: 12:07 Care Management Progress Note S/O:Myron was sitting up in bed talking with his who has been staying with him. He was pleasant and cooperative and readily discussed his condition and care he is receiving. Both Myron and his had great things to say about the physicians, nurses and everyone associated with his hospital stay. They stated that in the distant past this was not always the case. In particular, they were pleased with how his Loretta was included in all aspects of his care. They stated they feel fortunate to have such a wonderful critical access hospital hospital to meet their healthcare needs. Myron is feeling much better today he maintains. He had hoped to be discharged but understands the need to remain in the hospital until new hives stop appearing. They also shared that Dr. Phillips plans to contact an assemblies and installations inspector today to consult about his care. A: Myron is a 63 year old gentleman admitted to [facility] on 06/25/19 with a severe allergic reaction to bee stings P: Myron is being treated for a severe, possibly anaphylactic, allergic reaction to bee stings. Dr. Phillips plans to consult an assemblies and installations inspector today, if possible, to review his case and offer suggestions for any treatment modifications. Myron will discharge home with no new services. CM will continue to support patient, family and discharge planning needs.
[2019-06-27] MEDS: Loratidine 10 MG TAB 20 MG PO (15:12)
[2019-06-27] MEDS: diphenhydrAMINE 25 MG CAP 50 MG PO (18:02)
[2019-06-27] MEDS: Montelukast 10 MG TAB PO (20:12)
[2019-06-27] MEDS: Enoxaparin 40 MG/0.4 ML SYR SC (20:12)
[2019-06-27] MEDS: Methadone 10 MG TAB PO (22:01)
[2019-06-27] MEDS: Cetirizine 10 MG TAB 20 MG PO (22:01)
[2019-06-28] MEDS: diphenhydrAMINE 25 MG CAP 50 MG PO (01:21)
[2019-06-28] MEDS: Normal Saline 1,000 ML 125 ML IV (03:10)
[2019-06-28 03:42] VITALS: BP 166/72; PULSE 62; RESP 18; TEMP 36.5; O2SAT 96
[2019-06-28] MEDS: Levothyroxine 75 MCG TAB PO (06:28)
[2019-06-28] MEDS: oxyCODONE 15 MG TAB PO (06:28)
[2019-06-28 06:50] LABS: Abs Immature Grans 0.02 k/cumm (0.0-0.09); Absolute Lymphocyte Count 0.57 k/cumm (1.2-3.4); Absolute Monocyte Count 0.73 k/cumm (0.11-0.7); Absolute Neutrophil Count 8.16 k/cumm (1.2-6.7); HCT 33.1 % (40.0-50.0); HGB 11.1 g/dL (13.5-17.5); Immature Grans % 0.2; Mean Corp. HGB Concentration 33.5 g/dL (32.0-36.0); Mean Corpuscular Hemoglobin 30.6 pg (27.0-33.0); Mean Corpuscular Volume 91.2 fL (80-95); Mean Platelet Volume 10.3 fL (8.0-11.0); Monocytes % 7.7; Neutrophils % 86.1; Platelet Count 229 x1000/uL (130-400); RBC 3.63 m/cumm (4.50-6.00); White Blood Cell Count 9.48 k/cumm (4.4-10.8)
[2019-06-28 07:00] VITALS: PULSE 62
[2019-06-28 07:05] LABS: Anion Gap 10.4 mmol/L (3-11); BUN 21 mg/dL (7-18); CO2 27.6 mmol/L (21.0-32.0); CREATININE 0.87 mg/dL (0.70-1.30); Chloride 106 mmol/L (98-107); Glucose 223 mg/dL (70-100); Magnesium 2.1 mg/dL (1.8-2.4); Potassium 3.3 mmol/L (3.5-5.1); Sodium 144 mmol/L (136-145)
[2019-06-28 07:54] VITALS: BP 180/87; PULSE 64; RESP 18; TEMP 36.8; O2SAT 97
[2019-06-28] MEDS: Potassium Chloride 20 MEQ TABCR 40 MEQ PO (08:16)
[2019-06-28] MEDS: Insulin Aspart 300 UNITS/3 ML PEN SC ×2 (08:16→12:19)
[2019-06-28] MEDS: Methadone 5 MG TAB PO (08:17)
[2019-06-28] MEDS: Cholecalciferol (Vitamin D3) 1,000 UNIT TAB 1000 UNITS PO (08:17)
[2019-06-28] MEDS: Omeprazole 20 MG CAPCR PO (08:17)
[2019-06-28] MEDS: Loratidine 10 MG TAB 20 MG PO (08:17)
[2019-06-28] MEDS: predniSONE 20 MG TAB 60 MG PO (08:18)
[2019-06-28] MEDS: cloNIDine 0.1 MG TAB PO (08:18)
--- NOTE | 2019-06-28 10:56 | DSE_ITS ---
Date of service: 06/28/19 Time of Service: 10:56 DS: Diagnosis Discharge Diagnosis (1) Hymenoptera allergy: Status: Acute (2) Urticaria of entire body: Status: Acute (3) Hypernatremia: Status: Resolved (4) KELVIN (acute kidney injury): Status: Resolved (5) Steroid-induced hyperglycemia: Status: Acute (6) Other chronic pain: Status: Chronic (7) Anemia: Status: Acute Asessment and Plan: Normocytic, acute on chronic; acute component likely dilutional. Discharge Plan Disposition Patient Disposition: HOME Condition: Stable Discharge Details Chief Complaint: Allergic Reason For Visit: ALLERGIC REACTION TO BEE STINGS Admit Date/Time: 06/27/19 09:35 Admit Provider: Jeovany Garza Attending Provider: Jeovany Garza Primary Care Provider: Lorie Holliday ED Provider: Lyn Morfin Hospital Course Hospital Course: Mr Espana is a 63 year old man with PMHx of hypertension, hyperlipidemia, GERD, hypothyroidism, episode of urticaria on 06/06/19 not associated with a known insect bite, who was admitted to [facility] hospitalist service on 06/25/19 for an anaphylactic reaction following multiple stings by wasps, hornets, or bees (patient was not sure), which resulted in 2 syncopal episodes, requirement for Epi pen use at home, bronchospasm at the hospital and prolonged recurrent urticaria. The patient was initially treated with IV steroids, now transitioned to PO, as well as combination of hydroxyzine and benadryl. With this therapy, the patient continued to get waves of itchy hives. Allergy consultation was sought with [facility] - recommendations were made to initiated the patient on loratidine 20 mg PO q am, cetirizine 20 mg PO qHS, ranitidine 150 mg PO BID, monteleukast 10 mg PO qHS, prednisone 40 mg PO daily x 3 days. Benadryl was to be used only prn and for bothersome hives. The patient did significantly improve with this therapy and is felt appropriate for discharge home today. We feel his blood sugars and blood pressures are elevated in setting of steroid use - no systemic therapy is being initiated for either of these conditions on discharge, but he should certainly follow up with his PCP to ensure that off of steroids his sugars and BPs are acceptable. He was advised to obtain an allergy bracelet, provided with Epi pen teaching and prescription for epi pens to have at home (2 at any given time). We checked his tryptase level - result is not back at the time of discharge, but the patient will need to follow up with allergy specialists at [facility] in 2-4 weeks (referral is being sent). Mast cell activation syndrome/mastocytosis workup should be pursued there as outpatient. The patient is advised about drowsiness and warned about safety of driving. The patient is asked to avoid bees/wasps/hornets. While in the hospital, the patient also had an KELVIN, possibly due to dehydration vs actual reaction to the wasp/hornet/bee venom. This has resolved. The patient does appear to have a component of dilutional anemia as well. PCP is asked to follow up patient's CBC and BMP in 1 week. Patient verbalizes understanding of his instructions and is stable for discharge. 45 minutes were spent on care for patient as well as preparation of this discharge summary today. Home Meds and New Rx's Prescriptions: New cetirizine 10 mg Tablet 20 mg PO HS Qty: 60 RF: 0 diphenhydramine HCl 25 mg Capsule 50 mg PO Q8H PRN PRN (Reason: bothersome hives) Qty: 30 RF: 0 prednisone 20 mg Tablet 40 mg PO DAILY Qty: 4 RF: 0 ranitidine HCl 150 mg Tablet 150 mg PO BID Qty: 60 RF: 0 montelukast 10 mg Tablet 10 mg PO QPM Qty: 30 RF: 0 loratadine 10 mg Tablet 20 mg PO DAILY Qty: 60 RF: 0 epinephrine [EpiPen 2-Philip] 0.3 mg/0.3 mL auto-injector 0.3 mg IM ONCE Qty: 2 RF: 2 albuterol sulfate [ProAir HFA] 90 mcg/actuation HFA aerosol inhaler 2 puff IH Q6H PRN (Reason: shortness of breath or wheezing) Qty: 8.5 RF: 0 Continued red yeast rice 600 mg capsule 1,200 mg PO DAILY RF: 0 clonidine HCl 0.1 mg tablet 0.1 mg PO BID Qty: 180 RF: 3 (DME) lancets [OneTouch Delica Lancets] 33 gauge misc 1 ea Miscellaneous DAILY Qty: 90 RF: 3 cholecalciferol (vitamin D3) [Vitamin D3] 1,000 UNIT capsule 1,000 unit PO BID Qty: 100 RF: 6 (DME) OneTouch Verio 1 EACH strip 1 ea Miscellaneous DAILY Qty: 90 RF: 3 levothyroxine 75 mcg tablet 75 mcg PO DAILY Qty: 90 RF: 3 omeprazole 20 mg capsule,delayed release(DR/EC) 20 mg PO DAILY Qty: 90 RF: 1 methadone 10 mg tablet 10 mg PO HS MDD 15mg Qty: 14 RF: 0 methadone 5 mg tablet 5 mg PO DAILY MDD 15mg Qty: 14 RF: 0 oxycodone 15 mg tablet 15 mg PO Q8H MDD 3 Qty: 84 RF: 0 Discharge Instructions Instructions: Ranitidine (By mouth), Albuterol (By breathing), Prednisone (By mouth), Diphenhydramine (By mouth), Loratadine (By mouth), Cetirizine (By mouth), Montelukast (By mouth), Epinephrine (Injection), Insect Bite or Sting (DC), Anaphylaxis (DC), Bronchospasm (DC) Additional Instructions: Return to the hospital with any new anaphylactic symptoms (difficulty breathing/swallowing/hives that do not respond to medications), any episodes of fainting, fever, bleeding, chest pain, shortness of breath. Avoid bees/wasps/hornets. Have 2 epi pens on you at all times. Wear your allergy bracelet. Consider a med alert bracelet. Avoid driving if the medications make you feel drowsy. Follow up with your PCP within 1 week, if possible. Follow up with [facility] allergy specialists in 2-4 weeks. Bloodwork in 1 week. Referrals: Allergy,[facility] [OTHER] - (anaphylactic reaction to bee/wasp/hornet stings which took a long time to improve. Follow up in 2-4 weeks, per Dr Herrera, if possible.) Lorie Holliday DO [Primary Care Provider] - Activity:: Avoid driving if medications make you feel drowsy Equipment/Supplies:: No Equipment Needed Diet:: carb counting low sodium Discharge Orders Discharge Orders: Discharge Order (Routine); Ordered 06/28/19 Ordered By: Margaret Phillips Other Ambulatory Orders: Basic Metabolic Panel (Routine) Timeframe: 1 Week Location: Determined by Patient Ordered By: Margaret Phillips Complete Blood Count No Diff (Routine) Timeframe: 1 Week Location: Determined by Patient Ordered By: Margaret Phillips Exam Narrative Exam Narrative: General: Very pleasant, alert middle-aged male, A&Ox3, looks better, wide awake, no obvious hives seen HEENT: EOMI, MMM Heart: RRR, no m/r/g Lungs: coarse breath sounds B GI: abdomen is soft, nontender, nondistended Extremities:no e/c/c BLE's DS: Data Vitals/I&O Vitals and I&O: Vital Signs Temperature 36.8 C 06/28/19 07:54 Temperature Source Tympanic 06/28/19 07:54 Pulse 64 06/28/19 07:54 Pulse Rhythm Regular 06/28/19 04:10 Pulse 93 H 06/25/19 18:31 Respiratory Rate 18 06/28/19 07:54 Respiratory Effort Non-Labored 06/28/19 04:10 Respiratory Depth Normal 06/28/19 04:10 Respiratory Pattern Normal 06/28/19 04:10 Blood Pressure 180/87 H 06/28/19 07:54 Blood Pressure Mean 80 06/25/19 18:30 Pulse Oximetry 97 06/28/19 07:54 Oxygen Delivery Method Room Air 06/28/19 07:54 Oxygen Flow Rate 0 06/28/19 07:54 Pain Level 6 06/28/19 08:17 Comment 06/27/19 11:31 Intake & Output 06/27/19 06/27/19 06/28/19 11:59 23:59 11:59 Intake Total 3405.000 / 4905.000 1500 / 4905.000 1525.000 / 1525.000 Output Total 600 / 1700 1100 / 1700 1500 / 1500 Balance 2805.000 / 3205.000 400 / 3205.000 25.000 / 25.000 Intake: IV 1880.000 / 2900.000 1020 / 2900.000 1075.000 / 1075.000 Oral 1525 / 2005 480 / 2005 450 / 450 Output: Urine 600 / 1700 1100 / 1700 1500 / 1500 Other: Urine Color Straw Yellow Yellow Urine Appearance Clear Clear Clear Urine Odor Normal Voiding Methods Toilet Toilet Toilet Pending studies at discharge: Tryptase level Labs on day of discharge: Labs from last 24 hours 06/28/19 06/28/19 06/27/19 06:35 06:35 08:05 WBC 9.48 RBC 3.63 L Hgb 11.1 L Hct 33.1 L MCV 91.2 MCH 30.6 MCHC 33.5 RDW 13.0 Plt Count 229 MPV 10.3 Immature Gran % 0.2 Neutrophils % 86.1 Lymphocytes % 6.0 Monocytes % 7.7 Eosinophils % 0.0 Basophils % 0.0 Absolute Neutrophils 8.16 H Absolute Lymphocytes 0.57 L Absolute Monocytes 0.73 H Absolute Eosinophils 0.00 Absolute Basophils 0.00 Sodium 144 D Potassium 3.3 L Chloride 106 Carbon Dioxide 27.6 Anion Gap 10.4 BUN 21 H Creatinine 0.87 Estimated GFR/1.73 m2 >= 60.00 Glucose 223 H Calcium 8.0 L Magnesium 2.1 Tryptase Pending [facility] Medical History Adenomatous polyp of colon (Chronic 11/11/15) Adjustment disorder, unspecified (Acute 11/06/16) Bilateral low back pain without sciatica (Chronic 11/03/90) Cataract, congenital (Chronic 11/13/11) Cataracts, bilateral Chronic neck and back pain Chronic, continuous use of opioids Deafness Dyslipidemia Encounter for screening for lung cancer (Acute 09/06/17) Essential hypertension (Chronic 03/01/17) Fatty liver Gastroesophageal reflux disease without esophagitis (Chronic 11/13/11) GERD (gastroesophageal reflux disease) Hearing loss (Chronic 11/13/11) Hepatitis C Hyperlipidemia (Chronic 11/13/11) Hypertriglyceridemia (Chronic 11/13/11) Hypothyroidism (Chronic 12/02/12) Impaired fasting blood sugar Impaired fasting glucose (Acute 09/06/17) Left sided sciatica (Chronic 07/05/17) Migraine headache with aura (Chronic) Neck pain of over 3 months duration (Chronic 11/13/11) Other chronic pain (Chronic 09/17/90) Patent foramen ovale Patent foramen ovale (Chronic 11/13/11) Steatohepatitis, non-alcoholic (Chronic 11/13/11) Tobacco use Vitamin D deficiency (Chronic 03/20/13) Surgical History Arthroplasty of knee (06/27/11) COLONOSCOPY (11/02/15) Removal spinal cord stimulator and generator (04/16/18) Trigger Finger release (08/30/15) Family History Mother Diabetes Father Stroke Sister Age: 64 Personal history of malignant neoplasm Brother Age: 67 Personal history of malignant neoplasm Brother No problems noted. Brother No problems noted. 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
[2019-06-28] MEDS: amLODIPine 5 MG TAB PO (11:34)
[2019-06-28 11:35] VITALS: BP 190/92; PULSE 66; RESP 19; TEMP 37; O2SAT 97
[2019-06-28 12:25] VITALS: PULSE 72
== END 2019-06-28 13:05 | disposition home or self-care (01) | DRG 918 ==
LOC: ER 18:58 → MS 19:00
PROVIDERS: Internal Medicine; Admitting Provider Internal Medicine; Emergency Provider Physician Assistant; PCP Student in an Organized Health Care Education/Training Program; Visit Provider Internal Medicine
DX: T63.441A Toxic effect of venom of bees, accidental (unintentional), initial encounter (principal); N17.9 Acute kidney failure, unspecified; E87.0 Hyperosmolality and hypernatremia; Z91.030 Bee allergy status; R55 Syncope and collapse; L50.0 Allergic urticaria; E86.0 Dehydration; D64.9 Anemia, unspecified; I10 Essential (primary) hypertension; Z79.891 Long term (current) use of opiate analgesic; G89.29 Other chronic pain; R73.9 Hyperglycemia, unspecified; T38.0X5A Adverse effect of glucocorticoids and synthetic analogues, initial encounter
CPT/HCPCS: 36415; 80048; 80053; 83520; 85027; 93005; 94640; 96361; 96374; 99220; 99232; 99233; 99239; 99285; J1650; 83735; 84295; 85025; 93010; 99225; G0378; J0780; J1200; J2930; J7512; J7613; J7620

== ENCOUNTER 2019-07-03 12:21 | Outpatient (CLI) | payer BC, SELFPAY ==
[2019-07-03 12:50] LABS: HCT 40.9 % (40.0-50.0); HGB 14.2 g/dL (13.5-17.5); Mean Corp. HGB Concentration 34.7 g/dL (32.0-36.0); Mean Corpuscular Hemoglobin 30.9 pg (27.0-33.0); Mean Corpuscular Volume 89.1 fL (80-95); Mean Platelet Volume 9.8 fL (8.0-11.0); Platelet Count 284 x1000/uL (130-400); RBC 4.59 m/cumm (4.50-6.00); RBC Distribution Width 12.5 % (11.8-14.1); White Blood Cell Count 8.93 k/cumm (4.4-10.8)
[2019-07-03 13:33] LABS: ALT 53 U/L (16-63); AST 30 U/L (15-37); Albumin 3.5 g/dL (3.4-5.0); Alkaline Phosphatase 65 U/L (46-116); Anion Gap 9.6 mmol/L (3-11); BUN 19 mg/dL (7-18); Bilirubin, Total 0.6 mg/dL (0.2-1.0); CO2 28.4 mmol/L (21.0-32.0); CREATININE 1.04 mg/dL (0.70-1.30); Chloride 102 mmol/L (98-107); Glucose 193 mg/dL (70-100); Sodium 140 mmol/L (136-145); Total Protein 6.9 g/dL (6.4-8.2)
[2019-07-03 13:41] LABS: TSH (W/Ref FT4) 1.74 uIU/mL (0.36-3.74)
[2019-07-03 14:56] LABS: Cholesterol 244 mg/dL (50-200); HDL Cholesterol 49 mg/dL (40-60); Triglyceride 408 mg/dL (30-150)
[2019-07-03 15:35] LABS: LDL CHOLESTEROL 111 mg/dL (<100)
== END 2019-07-03 12:41 ==
PROVIDERS: PCP Student in an Organized Health Care Education/Training Program; Visit Provider Internal Medicine
DX: D64.9 Anemia, unspecified (principal); E03.9 Hypothyroidism, unspecified; I10 Essential (primary) hypertension; K75.81 Nonalcoholic steatohepatitis (NASH); Z13.220 Encounter for screening for lipoid disorders
CPT/HCPCS: 36415; 80048; 80053; 80061; 83721; 85027; 84443

== ENCOUNTER 2019-09-28 14:49 | Outpatient (CLI) | payer BC, SELFPAY ==
[2019-09-28 15:17] LABS: HCT 40.3 % (40.0-50.0); HGB 13.9 g/dL (13.5-17.5); Mean Corp. HGB Concentration 34.5 g/dL (32.0-36.0); Mean Corpuscular Hemoglobin 30.2 pg (27.0-33.0); Mean Corpuscular Volume 87.6 fL (80-95); Platelet Count 267 x1000/uL (130-400); RBC Distribution Width 12.1 % (11.8-14.1); White Blood Cell Count 7.48 k/cumm (4.4-10.8)
[2019-09-28 16:10] LABS: ALT 32 U/L (16-63); AST 22 U/L (15-37); Albumin 4.2 g/dL (3.4-5.0); Alkaline Phosphatase 54 U/L (46-116); Anion Gap 13.9 mmol/L (3-11); BUN 18 mg/dL (7-18); Bilirubin, Total 0.6 mg/dL (0.2-1.0); CO2 27.1 mmol/L (21.0-32.0); CREATININE 1.01 mg/dL (0.70-1.30); Calcium 9.4 mg/dL (8.5-10.1); Chloride 103 mmol/L (98-107); Glucose 118 mg/dL (74-106); Potassium 4.1 mmol/L (3.5-5.1); Sodium 144 mmol/L (136-145); Total Protein 7.5 g/dL (6.4-8.2)
[2019-09-28 16:32] LABS: Calculated LDL 53 mg/dL; Cholesterol 184 mg/dL (<200); HDL Cholesterol 62 mg/dL (40-60); Triglyceride 347 mg/dL (<150)
== END 2019-09-28 15:09 ==
PROVIDERS: PCP Student in an Organized Health Care Education/Training Program; Visit Provider Student in an Organized Health Care Education/Training Program
DX: D64.9 Anemia, unspecified (principal); L50.9 Urticaria, unspecified; T63.481A Toxic effect of venom of other arthropod, accidental (unintentional), initial encounter; K75.81 Nonalcoholic steatohepatitis (NASH); N17.9 Acute kidney failure, unspecified; R73.01 Impaired fasting glucose; E11.9 Type 2 diabetes mellitus without complications; E78.1 Pure hyperglyceridemia; E03.9 Hypothyroidism, unspecified
CPT/HCPCS: 36415; 80053; 80061; 85027; 84443

== ENCOUNTER 2020-07-01 09:42 | Outpatient (CLI) | payer MEDICARE, BC, SELFPAY ==
[2020-07-01 17:53] LABS: ALT 33 U/L (16-63); AST 22 U/L (15-37); Albumin 3.9 g/dL (3.4-5.0); Alkaline Phosphatase 64 U/L (46-116); Anion Gap 7.5 mmol/L (3-11); BUN 25 mg/dL (7-18); Bilirubin, Total 0.5 mg/dL (0.2-1.0); CO2 28.5 mmol/L (21.0-32.0); CREATININE 1.02 mg/dL (0.70-1.30); Calcium 9.1 mg/dL (8.5-10.1); Calculated LDL 39 mg/dL (<100); Chloride 106 mmol/L (98-107); Cholesterol 156 mg/dL (<200); Glucose 94 mg/dL (74-106); HDL Cholesterol 55 mg/dL (40-60); Sodium 142 mmol/L (136-145); Total Protein 6.8 g/dL (6.4-8.2); Triglyceride 313 mg/dL (<150)
[2020-07-04 10:13] LABS: Lyme Ab w Rflx to Lyme Confirm Negative (Negative)
[2020-07-05 19:05] LABS: Anaplasma phagocytophilum Negative (Negative); B. miyamotoi PCR Negative (Negative); Babesia divergens/MO-1 Negative (Negative); Babesia duncani Negative (Negative); Babesia microti Negative (Negative); Ehrlichia chaffeensis Negative (Negative); Ehrlichia ewingii/canis Negative (Negative); Ehrlichia muris eauclairensis Negative (Negative)
== END 2020-07-01 10:02 ==
PROVIDERS: PCP Student in an Organized Health Care Education/Training Program; Visit Provider Student in an Organized Health Care Education/Training Program
DX: I10 Essential (primary) hypertension (principal); Z87.448 Personal history of other diseases of urinary system; W57.XXXA Bitten or stung by nonvenomous insect and other nonvenomous arthropods, initial encounter; M19.90 Unspecified osteoarthritis, unspecified site
CPT/HCPCS: 36415; 80053; 80061; 87798; 84443; 86618

== ENCOUNTER → 2021-05-12 09:47 | Outpatient (BNVA) | payer MEDICARE, SELFPAY | PROVIDERS: PCP Student in an Organized Health Care Education/Training Program; Referring Provider Student in an Organized Health Care Education/Training Program; Visit Provider Student in an Organized Health Care Education/Training Program | DX: M17.11 Unilateral primary osteoarthritis, right knee (principal) | CPT/HCPCS: 20610; J7325 ==

== ENCOUNTER → 2021-06-07 12:58 | Outpatient (BNVA) | payer MEDICARE, OTHER, SELFPAY | PROVIDERS: PCP Student in an Organized Health Care Education/Training Program; Referring Provider Student in an Organized Health Care Education/Training Program; Visit Provider Nurse Practitioner Gerontology | DX: R35.0 Frequency of micturition (principal); R39.9 Unspecified symptoms and signs involving the genitourinary system; Z80.42 Family history of malignant neoplasm of prostate; E11.9 Type 2 diabetes mellitus without complications | CPT/HCPCS: 99215 ==

== ENCOUNTER 2021-06-07 20:45 | Outpatient (REF) | payer MEDICARE, SELFPAY ==
[2021-06-07 16:33] LABS: HCT 42.6 % (40.0-50.0); HGB 14.4 g/dL (13.5-17.5); MCH 29.6 pg (27.0-33.0); MCHC 33.8 % (32.0-36.0); MCV 87.7 fL (80-95); MPV 10.9 fL (8.0-11.0); Platelet Count 252 10^3/uL (130-400); RBC 4.86 10^6/uL (4.36-5.78); RDW 12.4 % (11.8-14.1); RDW-SD 39.5 fL; WBC 6.72 10^3/uL (4.4-10.8)
[2021-06-07 16:56] LABS: ALT 32 U/L (16-63); AST 22 U/L (15-37); Albumin 4.3 g/dL (3.4-5.0); Alkaline Phosphatase 70 U/L (46-116); Anion Gap 10.5 mmol/L (3-11); BUN 20 mg/dL (7-18); Bilirubin, Total 0.7 mg/dL (0.2-1.0); CO2 28.5 mmol/L (21.0-32.0); CREATININE 0.9 mg/dL (0.70-1.30); Calcium 9.6 mg/dL (8.5-10.1); Calculated LDL 58 mg/dL (<100); Chloride 105 mmol/L (98-107); Cholesterol 166 mg/dL (<200); Glucose 103 mg/dL (74-106); HDL Cholesterol 66 mg/dL (40-60); Potassium 4.3 mmol/L (3.5-5.1); Sodium 144 mmol/L (136-145); Total Protein 7.7 g/dL (6.4-8.2); Triglyceride 212 mg/dL (<150)
[2021-06-07 22:46] LABS: PSA, Screening 0.2 ng/mL (0.0-4.5)
[2021-06-08 01:28] LABS: Vitamin D 25 Total 35.7 ng/mL (30-100)
[2021-06-08 14:03] LABS: ANA Interpretation Negative (Negative)
== END 2021-06-07 20:46 | disposition home or self-care (01) ==
LOC: LBN 20:45
PROVIDERS: Nurse Practitioner Gerontology; PCP Student in an Organized Health Care Education/Training Program; Visit Provider Student in an Organized Health Care Education/Training Program
DX: D64.9 Anemia, unspecified (principal); E55.9 Vitamin D deficiency, unspecified; E11.9 Type 2 diabetes mellitus without complications; N17.9 Acute kidney failure, unspecified; R35.0 Frequency of micturition; L50.9 Urticaria, unspecified; Z12.5 Encounter for screening for malignant neoplasm of prostate; M25.59 Pain in other specified joint
CPT/HCPCS: 80053; 80061; 82306; 84153; 85027; 86038

== ENCOUNTER 2021-08-03 09:36 | Outpatient (CLI) | payer MEDICARE, SELFPAY ==
--- NOTE | 2021-08-03 08:30 | DI.RAD_ITS ---
Exam(s) XR HAND RT COMPLETE EXAM: XR HAND RT COMPLETE CLINICAL HISTORY: acute pain. TECHNIQUE: 2D digital imaging was performed of the right hand. Images were obtained. AP, lateral and oblique views were obtained. COMPARISON: No exams were available for comparison FINDINGS: BONES: No acute fracture is present. No bony destructive lesion is seen. JOINTS: No dislocation present. There are mild degenerative changes seen in the interphalangeal joint s of the hand. SOFT TISSUE: Normal. IMPRESSION: No acute abnormality. DATA REPOSITORY: RADIATION DOSE DELIVERED:
--- NOTE | 2021-08-03 08:30 | DI.RAD_ITS ---
Exam(s) XR HAND LT COMPLETE EXAM: XR HAND LT COMPLETE CLINICAL HISTORY: acute pain. TECHNIQUE: 2D digital imaging was performed of the left hand. Three views were obtained. AP, later al and oblique views were obtained. COMPARISON: No exams were available for comparison FINDINGS: BONES: No acute fracture is present. No bony destructive lesion is seen. JOINTS: No dislocation present. There are mild degenerative changes seen in the interphalangeal joint s of the hand. SOFT TISSUE: Normal. No radiopaque foreign bodies are seen in the soft tissues. IMPRESSION: No acute abnormality. DATA REPOSITORY: RADIATION DOSE DELIVERED:
== END 2021-08-03 09:37 | disposition home or self-care (01) ==
LOC: DIORS 09:37
PROVIDERS: PCP Student in an Organized Health Care Education/Training Program; Referring Provider Student in an Organized Health Care Education/Training Program; Visit Provider Student in an Organized Health Care Education/Training Program
DX: M79.642 Pain in left hand; M79.641 Pain in right hand; M65.332 Trigger finger, left middle finger
CPT/HCPCS: 20550; 99213; 73130; J1030

== ENCOUNTER → 2021-09-01 07:57 | Outpatient (BNVA) | payer MEDICARE, SELFPAY | PROVIDERS: PCP Student in an Organized Health Care Education/Training Program; Referring Provider Student in an Organized Health Care Education/Training Program; Visit Provider Physical Therapy Assistant | DX: Z12.11 Encounter for screening for malignant neoplasm of colon (principal); Z86.010 Personal history of colon polyps; I10 Essential (primary) hypertension ==

== ENCOUNTER 2021-09-08 03:12 | Outpatient (CLI) | payer MEDICARE, SELFPAY ==
[2021-09-08 10:53] LABS: Source Nasal/Nares
[2021-09-08 15:01] LABS: COVID-19 PCR Negative (Negative)
== END 2021-09-08 03:13 | disposition home or self-care (01) ==
LOC: LBO 03:13
PROVIDERS: PCP Student in an Organized Health Care Education/Training Program; Visit Provider Surgery
DX: Z20.822 Contact with and (suspected) exposure to COVID-19 (principal); Z01.818 Encounter for other preprocedural examination
CPT/HCPCS: 87635

== ENCOUNTER 2021-09-11 06:06 | Day surgery (SDC) | payer MEDICARE, SELFPAY ==
--- NOTE | 2021-09-11 06:25 | W.COLOREPORT ---
Colonoscopy Report Date of procedure: 09/11/21 Pre-op diagnosis general: Screening colonoscopy for hx of polyps Post-op diagnosis procedure note: other (polyp) Procedure: Colonoscopy with polypectomy Surgeon: Rachelle Arciniega Anesthesia Type: General:No Airway (Zara Burnette CRNA) Estimated blood loss (mL): 3 Pathology: other (Transverse polyp) Complications: None Disposition: same day Indications: The patient is here for Colonoscopy pre-op. His last screening was in 2014 and was remarkable for tubular adenoma. He has no family history of colon cancer. He has not had any bowel habit changes. -Discussed colonoscopy bowel prep as well as the procedure. Discussed possible complications of the procedure to include bleeding, pain, perforation, missed small lesion/polyp, sore throat, aspiration and adverse reaction to the medications. Questions were answered to patient?s satisfaction. No guarantees were implied or given. Prep: Miralax/Dulcolax Procedure Start Time: 07:26 Procedure End Time: 07:42 Retraction Time: 9 minutes Findings: One sessile polyp in the transverse colon Procedure Description: After informed consent was obtained the patient was taken to the procedure room and placed in a left decubitous position. Monitors were applied and a time out was done. The patients name, date of , procedure, allergies to medications and metal in their body was reviewed. The patient was then sedated. Once sedated and comfortable a rectal exam was done. External exam was normal. Internal exam revealed a normal sphincter tone and no palpable masses. The prostate felt smooth. The scope was then introduced and retro-flexed. No internal hemorrhoids, polyps or masses were identified on retro-flexion. The scope was then advanced to the cecum without difficulty. The ileocecal valve and appendiceal orifice were identified. The prep was good. The scope was then slowly retracted over 9 minutes back into the rectum. Polyps were removed with cold forceps in the Transverse colon. There was no diverticulosis noted. The scope was removed and the patient was woken up and taken back to Same day surgery in stable condition. The patient tolerated the procedure well and there were no immediate complications. Follow up: The patient should follow up in 3-5 years unless they develop changes in bowel habits or other new gastrointestinal complaints.
--- NOTE | 2021-09-11 06:26 | W.PM.DSUDISC ---
Discharge Plan Disposition Patient Disposition: HOME Condition: Good Discharge Details Reason For Visit: Colonoscopy Attending Provider: Rachelle Arciniega Primary Care Provider: Lorie Holliday Home Meds and New Rx's Prescriptions: Continued epinephrine [EpiPen 2-Philip] 0.3 mg/0.3 mL auto-injector 0.3 mg IM ONCE Qty: 2 RF: 2 levothyroxine 75 mcg tablet 75 mcg PO DAILY Qty: 90 RF: 3 atorvastatin 20 mg tablet 20 mg PO DAILY Qty: 90 RF: 3 (DME) lancets [OneTouch Delica Lancets] 33 gauge misc 1 ea Miscellaneous DAILY Qty: 90 RF: 3 omeprazole 20 mg capsule,delayed release(DR/EC) 20 mg PO DAILY Qty: 90 RF: 3 oxycodone 30 mg tablet 10 mg PO TID RF: 0 Hold Instructions: Home Medication placed on hold at Doctor's office cholecalciferol (vitamin D3) [Vitamin D3] 25 mcg (1,000 unit) capsule 1,000 unit PO BID Qty: 100 RF: 0 (DME) OneTouch Verio test strips Strip 1 ea Miscellaneous DAILY Qty: 90 RF: 3 ibuprofen 600 mg tablet 600 mg PO Q8H PRN (Reason: inflammation and arthritic pain) Qty: 30 RF: 1 clonidine HCl 0.1 mg tablet 0.1 mg PO BID Qty: 180 RF: 3 methadone 10 mg tablet 10 mg PO BID MDD 20mg RF: 0 Discharge Instructions Instructions: Colorectal Polyps (DC) Additional Instructions: Findings: One polyp Follow up: 3-5 years depending on final pathology. You should receive a letter in 7-10 days with my final recommendations Please call if you develop: fevers >101.5 Nausea or Vomiting Abdominal pain that is not transient Rectal bleeding that is more then a tbsp A hard abdomen and inability to pass gas DAY SURGERY UNIT POST ENDOSCOPY INSTRUCTIONS Instructions for everyone who is given Anesthesia: For your safety, please do the following for the next 24 Hours: a. Do not drive or operate dangerous equipment b. Do not drink alcohol beverages or use any recreational drugs for the first 24 hours or while taking pain medications. The medications in your body may have a reaction that can be dangerous. c. Do not make any important decisions or sign any important papers 1. Generally there are no restrictions on your activity after a day or so has gone by, but you may feel a bit fatigued for a few days. 2. After you arrive home you may have a light meal and return to a normal diet as you can tolerate it without feeling sick to your stomach. 3. After surgery, you may feel pain or discomfort. This should be only transient, but if it persists please contact your doctor. 4. If there are any questions regarding the findings of your procedure, please feel free to contact your doctor. 6. If you are unable to contact your doctor with a problem, contact the hospital at [phone]. 7. Continue all your regular medications unless directed otherwise. I understand the above instructions and have no questions. Signature of Patient or Responsible Adult Escort Date/Time Name of Responsible Adult Escort Signature of Nurse Date/Time Activity:: Activity as Tolerated Diet:: As Tolerated Discharge Orders Discharge Orders: Discharge Order (Routine); Ordered 09/11/21 Ordered By: Rachelle Arciniega
[2021-09-11 06:28] VITALS: BP 151/79; PULSE 67; RESP 16; TEMP 36.4; O2SAT 97
[2021-09-11] MEDS: Lactated Ringers 1,000 ML 80 ML IV (06:55)
--- NOTE | 2021-09-11 07:03 | W.ANESPRE ---
General Info Date of Service Date Performed: 09/11/21 Height: 5 ft 8 in Weight: 78.4 kg Body Mass Index (BMI): 26.2 Surgical Procedure: Operation Date: 09/11/21 07:35 Proposed Procedures Side Surgeon p Braulio Arciniega MD Meds Allergies and Home Medications Allergies Allergy/AdvReac Type Severity Reaction Status Date / Time bee venom protein (honey bee) Allergy Severe Anaphylaxis Verified 09/08/21 12:48 escitalopram oxalate AdvReac Intermediate palpitation Verified 09/08/21 12:48 [From Lexapro] s paroxetine AdvReac Intermediate DIZZINESS Verified 09/08/21 12:48 BETTE Inhibitors AdvReac Verified 09/08/21 12:48 yellow and white hornet, wasp Allergy Severe anaphylaxis Uncoded 09/08/21 12:48 yellow jacke Allergy Severe Anaphylaxsi Uncoded 09/08/21 12:48 s beta blockers AdvReac Uncoded 09/08/21 12:48 Home Medication Medication Instructions Recorded lancets 33 gauge #90 ea 01/07/19 blood sugar diagnostic #90 strip 09/19/20 epinephrine 0.3 mg/0.3 mL 0.3 mg IM ONCE #2 each 09/26/20 injection, auto-injector atorvastatin 20 mg tablet 20 mg PO DAILY #90 tab 12/18/20 ibuprofen 600 mg tablet 600 mg PO Q8H PRN #30 tab 12/18/20 levothyroxine 75 mcg tablet 75 mcg PO DAILY #90 tab-cap 12/18/20 omeprazole 20 mg capsule,delayed 20 mg PO DAILY #90 cap 03/11/21 release clonidine HCl 0.1 mg tablet 0.1 mg PO BID #180 tab-cap 07/26/21 cholecalciferol (vitamin D3) 25 1,000 unit PO BID #100 tab-cap 08/25/21 mcg (1,000 unit) capsule oxycodone 30 mg tablet 10 mg PO TID tab 09/01/21 methadone 10 mg PO BID MDD 20mg 09/11/21 Current Visit Medications: Current Medications Generic Name Dose Route Start Last Admin Trade Name Freq PRN Reason Stop Dose Admin Hyoscyamine Sulfate 0.125 mg 09/11/21 06:27 Hyoscyamine 0.125 Mg Sl/Oral/Chew SL DIRECTED PRN Ringer's Solution 1,000 mls @ 80 mls/hr 09/11/21 06:53 09/11/21 06:55 IV 80 mls/hr INFUSION PRECIOUS Administration Sodium Chloride 500 mls @ 0 mls/hr 09/11/21 06:54 Saline 500ml Bag IV PRN PRN As Directed IV Miscellaneous Supplies 1 each 09/11/21 06:54 Iv Access IV DIRECTED PRECIOUS Ondansetron HCl 4 mg 09/11/21 06:27 Ondansetron 4 Mg/2 Ml Vial IVP Q4H PRN PRN Nausea / Vomiting Sodium Chloride 0 ml 09/11/21 06:54 Normal Saline Flush 10 Ml Syr IVP PRN PRN PFSH Active Problems Active Problems: Problem Status Onset Code Primary osteoarthritis of right knee M17.11 Hymenoptera allergy Z91.030 Urticaria of entire body L50.9 KELVIN (acute kidney injury) N17.9 Anemia D64.9 Allergic reaction to insect sting T63.481A Diabetes mellitus E11.9 Oral lesion K13.70 Trigger finger, left middle finger M65.332 Desensitization to allergens Z51.6 Hand joint pain M25.549 Altered urinary elimination pattern R39.198 Joint pain M25.50 Migraine headache with aura G43.109 Vitamin D deficiency 03/20/13 E55.9 Steatohepatitis, non-alcoholic 11/13/11 K75.81 Patent foramen ovale 11/13/11 Q21.1 Other chronic pain 09/17/90 G89.29 Neck pain of over 3 months duration 11/13/11 M54.2, G89.29 Left sided sciatica 07/05/17 M54.32 Impaired fasting glucose 09/06/17 R73.01 Hypothyroidism 12/02/12 E03.9 Hypertriglyceridemia 11/13/11 E78.1 Hyperlipidemia 11/13/11 E78.5 Hearing loss 11/13/11 H91.90 Gastroesophageal reflux disease without esophagitis 11/13/11 K21.9 Essential hypertension 03/01/17 I10 Encounter for screening for lung cancer 09/06/17 Z12.2 Cataract, congenital 11/13/11 Q12.0 Bilateral low back pain without sciatica 11/03/90 M54.5 Adjustment disorder, unspecified 11/06/16 F43.20 Adenomatous polyp of colon 11/11/15 D12.6 Medical History Medical History Adenomatous [facility]11/11/15[facility] Adjustment disorder, unspecified (11/06/16) Altered urinary elimination pattern Bilateral low back pain without sciatica (11/03/90) chronic injured ; spinal cord implanted stimulator 2003 Cataract, congenital (11/13/11) congenital Cataracts, bilateral Chronic neck and back pain Chronic, continuous use of opioids Deafness in L ear Dyslipidemia Encounter for screening for lung cancer (09/06/17) screen begun 10/2015; stopped smoking 2005: complete screen 10/2021. FOCAL CHANGES IDENTIFIED 11/21/17, so CT(chest) w/ contrast requested. Ordering screening CT (chest) 02/05/19. Essential hypertension (03/01/17) High BPs w/o clonidine .. monitor & review for possible med changes as clonidine is not primary Rx. (06/2019) Fatty liver Gastroesophageal reflux disease without esophagitis (11/13/11) mild gastritis on EGD 04/12 GERD (gastroesophageal reflux disease) Hand joint pain IMPROVED with Orhto/Injection. 08/2021. Acute on chronic, worsened. Swollen and stiff .. significant effort needed to open/close hand/grasp. Snapping of middle fingers, B/L (trigger finger?). Hearing loss (11/13/11) left ear Hepatitis C Hyperlipidemia (11/13/11) high TG, risk 16%-smoker (d/c); goal LDL<130; 01/2016 CV risk 12.6% Hypertriglyceridemia (11/13/11) very high TG; diabetic level FBS 12/13 Hypothyroidism (12/02/12) ABNL TSH 07/2012 Impaired fasting blood sugar Impaired fasting glucose (09/06/17) LOng Hx, Pre-diabetes monitoring ... BG levels 95 - 132 with usual higher numbers post ice-cream night before. A1C improved (6.1) from 01/2018 (6.5). 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 Currently not sleeping due to lower back/sciatica pain. 11/2018 [ ] Neurology to help localize sciatic pain as oxycod helps him function at work, post piriformis release surgery. Migraine headache with aura saw Neuro (03/2019). Note: No imagin from [place], [ ] Open MRI (w/o) if H/A persist. Hx chronic neck and back pain with opiate dependence, p/w increased headaches. D/C sumatriptan, advil -- use rizatriptan 10 mg as needed. He should not use more than 2 in a 24-hour period and no more than 4 in a 1 week period. Neck pain of over 3 months duration (11/13/11) Ortho: Dr. Nieto, FA. Long Hx .. seing chiro with some relief (less intense, but twinges/shooting pain remain) .. no clear etiology; roled up towel helps. 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 Hx Pain Clinic ([facility]), Hx weaning off opioids, Methadone re-started with good results. Oxycod provided for break-through pain, wean more difficult over . Reconsidering Methadone as 1' and Oxycod decrease, 11/2018. Patent foramen ovale Patent foramen ovale (11/13/11) dr ROBLES CARDIOL [facility]; No prophylactic antibiotics indicated 04/2014 normal nucl perf scan 04/20/[address] Robles.. No myocardial perf defects, LVSyt Function normal w/ EF 69%. chest discomfort noncardiac in origin .. Steatohepatitis, non-alcoholic (11/13/11) [facility] bx 05/14 Tobacco use Vitamin D deficiency (03/20/13) level said to be <10, Dr Kim (RHEUM) . Remains low (2018), retesting, 02/2019 [ ] Surgical History Surgical History Arthroplasty of knee (06/27/11) COLONOSCOPY (11/02/15) Removal spinal cord stimulator and generator (04/16/18) Trigger Finger release (08/30/15) Right ring finger. Dr. Holloway Tobacco Smoking/Tobacco Use Status: Former Tobacco Use Alcohol Alcohol Intake: current Alcohol intake frequency: a few times a month Alcohol type: beer Substance Use Substance use: Never Substance use type: does not use Vital Signs and Lab Results Vital Signs Most Recent Vital Signs in EMR: Most Recent Vital Signs Temp Pulse Resp BP Pulse Ox 36.4 C L 67 16 151/79 H 97 09/11/21 06:28 09/11/21 06:28 09/11/21 06:28 09/11/21 06:28 09/11/21 06:28 Lab Results Blood Type / Crossmatch: No Data to Display Complete Blood Count: No Data to Display Complete Metabolic Panel: No Data to Display Liver Function Panel: No Data to Display Coagulation Panel: No Data to Display Cardiac Panel: No Data to Display Arterial Blood Gas: No Data to Display Venous Blood Gas: No Data to Display Pancreas Panel: No Data to Display Thyroid Panel: No Data to Display Infectious Disease: Coronavirus (COVID-19)(PCR) Negative (Negative) 09/08/21 09:43 09/08/21 Coronavirus 2019 Source Nasal/Nares 09/08/21 09:43 09/08/21 Blood Cultures: No Data to Display Toxicology Panel: No Data to Display Imaging and Studies Imaging and Studies Echocardiogram Summary: FINDINGS: LEFT VENTRICLE/LVEF: 60-65%. Normal size. RIGHT VENTRICLE: Normal size and function. AORTIC VALVE: [place], mild aortic insufficiency. No stenosis. MITRAL VALVE: Mild mitral insufficiency, no stenosis. TRICUSPID VALVE: Mild tricuspid insufficiency. RSV/PA/RIGHT ATRIAL PRESSURE: PULMONIC VALVE: No pulmonic stenosis or insufficiency. ATRIA: Within normal limits. DIASTOLIC INDICES: GREAT VESSELS: The inferior vena cava is normal in size and collapses with inspiration. Right atrial pressure estimated at less than 10 mmHg. PERICARDIUM: No effusion. Rhythm sinus. 04/21/14 Anesthesia Assessment and Plan Anesthesia History Personal History: No History of Anesthesia Complications Family History: No Family History of Anesthesia Complications Exercise Tolerance Exercise Tolerance: Metabolic Equivalents>4 Pertinent Negatives Pertinent Negatives: No Symptoms of GERD, No Major Cardiovascular Symptoms or Complaints, No Major Pulmonary Symptoms or Complaints and No History of CVA/TIA Cardiac & Pulmonary Exam Cardiac Exam: Normal S1/S2 Heart Sounds Pulmonary Exam: Clear Bilateral Breath Sounds Implantable Cardiac Device Does patient have a Pacemaker or an ICD?: No Airway Exam Known Difficult Airway: No Mallampati Class: 3 Mouth Opening: Narrow (< 3cm) Thyromental Distance: Greater than 3 cm Neck Range of Motion: Limited ROM Neck Circumference: Normal Teeth Condition: Normal Dentition (Dental implants) ASA Classification ASA Score: ASA 2 Emergency Case?: No NPO Status NPO Status: NPO Clears >2 hours, Solids >8 hours Anesthesia Plan Resuscitation Status: Full Code Anesthesia Technique: General Anesthesia Airway Planned: Natural Airway Monitors Used: Standard Monitors
[2021-09-11 07:09] VITALS: BMI 26.2
--- NOTE | 2021-09-11 07:35 | BOWEL_PTH ---
PATIENT: Myron Espana LOC: [facility] U#:[id number] AGE/SX: 65/M ROOM: RE09/11/[address]: Rachelle Arciniega MD : [id number] BED: DIS: 09/11/2021 SPEC #: [id number] RECD: 09/11/21 12:23 STATUS: JOSEMANUEL REKarolina #: [id number] KRISTIAN: 09/11/21 07:[address]: Rachelle Arciniega DEPT: Surgical Specimen RECD BY: Michelle Oseguera ENTERED: 09/11/21 12:25 SP TYPE: Bowel OTHR DR: Lorie Holliday DO Tissues: 1 - BIOPSY BOWEL Procedures: GROSS AND MICRO LEVEL 4 Comments: [id number]
[2021-09-11 07:47] VITALS: BP 141/74; PULSE 74; RESP 18; TEMP 36.7; O2SAT 95
--- NOTE | 2021-09-11 07:55 | W.ANESPOSTOP ---
Postoperative Evaluation Date, Time and Location Date Performed: 09/11/21 Time Performed: 07:56 Patient Location: Day Surgery Unit Vital Signs Most Recent Imported Vital Signs: Most Recent Vital Signs Temp Pulse Resp BP Pulse Ox 36.7 C 74 18 141/74 H 95 09/11/21 07:47 09/11/21 07:47 09/11/21 07:47 09/11/21 07:47 09/11/21 07:47 Pain Score Most Recent Pain Score: Most Recent Pain Score Pain Level 0 09/11/21 07:47 Assessment Mental Status: Awake (Alert & Oriented to Patient Baseline) Airway and Respiratory Function: Patent airway with normal (patient baseline) respiratory exam Cardiovascular Function: Hemodynamically Stable Hydration Status: Adequately Hydrated Nausea & Vomiting: No Nausea or Vomiting Pain: Pain is tolerable per patient (Abdominal gas cramps) Peripheral Nerve Block: Patient did not receive a nerve block
[2021-09-11 08:14] VITALS: BP 145/66; PULSE 62; RESP 16; TEMP 36.5; O2SAT 95
== END 2021-09-11 08:46 | disposition home or self-care (01) ==
PROVIDERS: PCP Student in an Organized Health Care Education/Training Program; Visit Provider Surgery
PROC: 0DJD8ZZ Inspection of Lower Intestinal Tract, Via Natural or Artificial Opening Endoscopic (ICD-10-PCS; CPT 45378; principal; 2021-09-11 07:30)
DX: Z12.11 Encounter for screening for malignant neoplasm of colon (principal); Z86.010 Personal history of colon polyps; D12.3 Benign neoplasm of transverse colon; K21.9 Gastro-esophageal reflux disease without esophagitis; K76.0 Fatty (change of) liver, not elsewhere classified
CPT/HCPCS: 45380; 88305; J2001; J2405

== ENCOUNTER 2021-10-26 02:26 | Outpatient (CLI) | payer MEDICARE, SELFPAY ==
--- NOTE | 2021-10-26 06:45 | DI.CTLCSR_ITS ---
Exam(s) CT CHEST LUNG CANCER SCREEN EXAM: CT CHEST LUNG CANCER SCREEN CLINICAL HISTORY: Screening for lung cancer,FORMER SMOKER, Z87.891 TECHNIQUE: Imaging Protocol: Axial computed tomography images with coronal and sagittal reformatted images were created and reviewed COMPARISON: CT CHEST - LUNG CANCER SCREENING from 11/21/2017 CT CHEST WITH CONTRAST from 01/15/[address] CHEST LUNG CANCER SCREEN from 03/23/2019 FINDINGS: Tracheobronchial tree: Patent where visualized. Mediastinum and Phyllis: No dominant adenopathy or fluid collection. Pulmonary parenchyma: Reticulonodular densities in the medial right middle lobe the similar appearanc e to the 21 November 2017 exam. No consolidation or dominant measurable mass. Minimal emphysematous changes. Lung Nodules: Stable 3 millimeter nodule peripheral right lower lobe.. Pleura: No effusion or pneumothorax. Heart: The heart is not dilated. Mild coronary artery calcifications are seen. Aorta: Thoracic aorta non-dilated. Mild calcification. Upper abdomen: Unremarkable. Bones: Mild degenerative disc changes. Soft Tissues: Unremarkable. IMPRESSION: Stable 3 millimeter nodule right lower lobe. Reticulonodular opacities in the medial right middle, could indicate infectious or inflammatory pneum onitis. Lung RADS Cat 2 - Benign Appearance / Behavior: Nodules with a very low likelihood of becoming a clin ically active cancer due to size or lack of growth Lung-RADS 1.0 CATEGORIES: Category 0 - Prior chest CT exam(s) being located for comparison. Category 1 - Annual screening in 12 months. No nodules or definitely benign nodules. Category 2 - Annual screening in 12 months. Benign appearance. Nodules with low likelihood of becomin g active cancer. Category 3 - 6-month follow-up. Probably benign. Short-term follow-up suggested. Nodules with low lik elihood of becoming active cancer. Category 4A - 3-month follow-up and CT/PET if >8 mm in size. Suspicious finding. Findings which requi re additional testing. Category 4B - Findings which require additional testing and tissue sampling. Modifier S- Potentially clinically significant findings (non lung cancer) RADIATION DOSE DELIVERED: 80.41mGy.cm Total DLP 1.84mGy CTDIvol DATA REPOSITORY: All CT scans at this facility are submitted to the National Radiology Data Registry (NRDR) Dose Index Registry (DIR) with the [employer] (ACR). RADIATION OPTIMIZATION: All CT scans at this facility use at least one of these dose optimization te chniques: automated exposure control; mA and/or kV adjustment per patient size (includes targeted exa ms where dose is matched to clinical indication); or iterative reconstruction.
== END 2021-10-26 02:46 ==
PROVIDERS: PCP Student in an Organized Health Care Education/Training Program; Visit Provider Student in an Organized Health Care Education/Training Program
DX: Z12.2 Encounter for screening for malignant neoplasm of respiratory organs (principal); Z87.891 Personal history of nicotine dependence; R91.8 Other nonspecific abnormal finding of lung field; R91.1 Solitary pulmonary nodule
CPT/HCPCS: 71271

== ENCOUNTER 2022-02-20 02:30 | Outpatient (CLI) | payer MEDICARE, SELFPAY ==
[2022-02-20] MEDS: Albuterol HFA 18 GM 200 PUFF INH IH (16:08)
[2022-02-20] MEDS: Inhaler, Assist Device 1 EACH MC (16:09)
== END 2022-02-20 02:31 | disposition home or self-care (01) ==
LOC: RT 02:30
PROVIDERS: PCP Student in an Organized Health Care Education/Training Program; Visit Provider Student in an Organized Health Care Education/Training Program
DX: R06.02 Shortness of breath (principal); R91.1 Solitary pulmonary nodule; R06.09 Other forms of dyspnea; Z87.891 Personal history of nicotine dependence; R94.2 Abnormal results of pulmonary function studies
CPT/HCPCS: 94060; 94726; 94729

== ENCOUNTER 2022-03-31 09:54 | Emergency (ER) | payer MEDICARE, SELFPAY ==
[2022-03-31 10:02] VITALS: BP 161/74; PULSE 68; RESP 16; TEMP 36.6; O2SAT 96
--- NOTE | 2022-03-31 10:43 | ED.GENADUL_ITS ---
Discharge Plan Disposition Patient Disposition: HOME Condition: Stable Discharge Details Clinical Impression: Skin infection Primary Care Provider: Lorie Holliday ED Provider: Augie Lang Home Meds and New Rx's Prescriptions: New cephalexin 500 mg capsule 500 mg PO QID 5 Days Qty: 20 0RF No Action (DME) lancets [OneTouch Delica Lancets] 33 gauge misc 1 ea Miscellaneous DAILY Qty: 90 3RF Rx Instructions: diabetes, check daily to keep A1C < 7.5 omeprazole 20 mg capsule,delayed release(DR/EC) 20 mg PO DAILY Qty: 90 3RF cholecalciferol (vitamin D3) [Vitamin D3] 25 mcg (1,000 unit) capsule 1,000 unit PO BID Qty: 100 0RF Rx Instructions: Trial TWICE day x 1 month, Vitamin D supplement methadone 10 mg tablet 10 mg PO BID MDD 20mg Qty: 56 0RF oxycodone 10 mg tablet 15 mg PO BID MDD 30mg PRN (Reason: pain) Qty: 84 0RF ibuprofen 600 mg tablet 600 mg PO Q8H PRN (Reason: inflammation and arthritic pain) Qty: 30 1RF clonidine HCl 0.1 mg tablet 0.1 mg PO BID Qty: 180 3RF Rx Instructions: for help with methadone taper and BP (DME) OneTouch Verio test strips Strip 1 ea Miscellaneous DAILY Qty: 90 3RF Rx Instructions: Daily BG testing for Diabetes, to keep A1C < 7 TEST DAILY e11.9 levothyroxine 75 mcg tablet 75 mcg PO DAILY Qty: 90 3RF atorvastatin 20 mg tablet 20 mg PO DAILY Qty: 90 3RF [facility] Fish Oil 1 cap PO DAILY Qty: 90 0RF albuterol sulfate [ProAir HFA] 90 mcg/actuation HFA aerosol inhaler 2 puff inhalation Q6H PRN (Reason: shortness of breath or wheezing) Qty: 8.5 1RF Rx Instructions: Trial daily for shortness of breath; use with spacer (from [facility]ANE) epinephrine [EpiPen 2-Philip] 0.3 mg/0.3 mL auto-injector 0.3 mg IM ONCE Qty: 2 2RF Discharge Instructions Instructions: Cellulitis (ED) Additional Instructions: Please keep skin clean and dry. Please use antibiotics as prescribed. Please return to the emergency department he develop worsening symptoms such as fevers chills worsening redness pain swelling or spreading infection. Please follow-up with your primary care physician as needed. Medical Decision Making 66-year-old male presents with several days of red lesion to tip of nose, initially started as a blister, started to ooze serous material, localized induration and erythema, no purulence flex or crepitus. No systemic signs of illness such as fever tachycardia nausea vomiting chills or respiratory symptoms. Likely localized mild erysipelas versus localized cellulitis, lower suspicion for deep space infection of the face. No clinical signs of systemic infection at this time. Will initiate oral Keflex to cover for strep and MSSA. Given strict return precautions for worsening infection. HPI General Date/Time Provider Initiated Documentation: 03/31/22 09:56 . HPI Narrative: 66-year-old male has noticed red lesion on the tip of his nose with oozing of yellow fluid, initially developed a blister in that region 1 to 2 days ago, was referred in by primary care physician. Denies systemic signs of illness such as fevers chills nausea vomiting or pain. Related Data Home Medications Medication Instructions Recorded Confirmed lancets 33 gauge ([facility] #90 ea 01/07/19 03/31/22 Lancets) ibuprofen 600 mg tablet 600 mg PO Q8H PRN inflammation and 12/18/20 03/31/22 arthritic pain #30 tabs omeprazole 20 mg capsule,delayed 20 mg PO DAILY #90 caps 03/11/21 03/31/22 release clonidine HCl 0.1 mg tablet 0.1 mg PO BID #180 tab-caps 07/26/21 03/31/22 cholecalciferol (vitamin D3) 25 1,000 unit PO BID #100 tab-caps 08/25/21 03/31/22 mcg (1,000 unit) capsule (Vitamin D3) blood sugar diagnostic ([employer] #90 strips 11/13/21 03/31/22 Verio test strips) levothyroxine 75 mcg tablet 75 mcg PO DAILY #90 tab-caps 01/08/22 03/31/22 atorvastatin 20 mg tablet 20 mg PO DAILY #90 tabs 01/19/22 03/31/22 methadone 10 mg tablet 10 mg PO BID #56 tabs 02/12/22 03/31/22 oxycodone 10 mg tablet 15 mg PO BID PRN pain #84 tabs 02/12/22 03/31/22 [facility] Fish Oil 1 cap PO DAILY #90 caps 02/20/22 03/31/22 albuterol sulfate 90 mcg/actuation 2 puff inhalation Q6H PRN 03/09/22 03/31/22 aerosol inhaler (ProAir HFA) shortness of breath or wheezing #8.5 grams epinephrine 0.3 mg/0.3 mL 0.3 mg (0.3 mL) IM ONCE #2 ea 03/28/22 03/31/22 injection, auto-injector (EpiPen 2-Philip) cephalexin 500 mg capsule 500 mg PO QID 5 days #20 caps 03/31/22 Previous Rx's Medication Instructions Recorded lancets 33 gauge ([facility] #90 ea 01/07/19 Lancets) ibuprofen 600 mg tablet 600 mg PO Q8H PRN inflammation and 12/18/20 arthritic pain #30 tabs omeprazole 20 mg capsule,delayed 20 mg PO DAILY #90 caps 03/11/21 release clonidine HCl 0.1 mg tablet 0.1 mg PO BID #180 tab-caps 07/26/21 cholecalciferol (vitamin D3) 25 1,000 unit PO BID #100 tab-caps 08/25/21 mcg (1,000 unit) capsule (Vitamin D3) blood sugar diagnostic ([facility] #90 strips 11/13/21 Verio test strips) levothyroxine 75 mcg tablet 75 mcg PO DAILY #90 tab-caps 01/08/22 atorvastatin 20 mg tablet 20 mg PO DAILY #90 tabs 01/19/22 methadone 10 mg tablet 10 mg PO BID #56 tabs 02/12/22 oxycodone 10 mg tablet 15 mg PO BID PRN pain #84 tabs 02/12/22 [facility] Fish Oil 1 cap PO DAILY #90 caps 02/20/22 albuterol sulfate 90 mcg/actuation 2 puff inhalation Q6H PRN 03/09/22 aerosol inhaler (ProAir HFA) shortness of breath or wheezing #8.5 grams epinephrine 0.3 mg/0.3 mL 0.3 mg (0.3 mL) IM ONCE #2 ea 03/28/22 injection, auto-injector (EpiPen 2-Philip) cephalexin 500 mg capsule 500 mg PO QID 5 days #20 caps 03/31/22 Allergies Allergy/AdvReac Type Severity Reaction Status Date / Time bee venom protein (honey bee) Allergy Severe Anaphylaxis Verified 03/31/22 10:05 escitalopram oxalate AdvReac Intermediate palpitation Verified 03/31/22 10:05 [From Lexapro] s paroxetine AdvReac Intermediate DIZZINESS Verified 03/31/22 10:05 BETTE Inhibitors AdvReac Verified 03/31/22 10:05 yellow and white hornet, wasp Allergy Severe anaphylaxis Uncoded 03/31/22 10:05 yellow jacke Allergy Severe Anaphylaxsi Uncoded 03/31/22 10:05 s beta blockers AdvReac Uncoded 03/31/22 10:05 General Stated Complaint: Cellulitis BRI: 4 Review of Systems Narrative: Review of Systems Constitutional: negative Eyes: negative ENT: negative Cardiovascular: negative Respiratory: negative Gastrointestinal: negative : negative Musculoskeletal: negative Skin: Red lesion to nose Neurologic: negative Psych: negative PFSH All Active Problems (Updated 03/31/22 @ 10:47 by Augie Lang MD) Skin infection (Acute) Tinea unguium (Acute) Hx of steroid therapy (Acute) SOB (shortness of breath) (Acute) with mild exertion or conversation, NEW ONSET At high risk for osteoporosis (Acute) Nail lesion (Acute) rt toe ... foreign object vs melanoma (?) Encounter for screening for lung cancer (Acute 09/06/17) screen begun 10/2015; stopped smoking 2005: complete screen 10/2021. FOCAL CHANGES IDENTIFIED 11/21/17, so CT(chest) w/ contrast requested. Ordering screening CT (chest) 02/05/19. Lung nodule < 6cm on CT (Acute) following with CCT .. no change, 2021.. Hx of smoking (Chronic) Lung Screening, 2018 ((31 yrs))((quit 2005)) Essential hypertension (Chronic 03/01/17) High BPs w/o clonidine .. monitor & review for possible med changes as clonidine is not primary Rx. (06/2019) Primary osteoarthritis of right knee (Acute) Synvisc injection: 05/11/2019 Hymenoptera allergy (Acute) New finding, anaphlxs 06/2019! 's Epipen saved him. Patent foramen ovale (Chronic 11/13/11) dr ROBLES CARDIOL [facility]; No prophylactic antibiotics indicated 04/2014 normal nucl perf scan 04/20/[address] Robles.. No myocardial perf defects, LVSyt Function normal w/ EF 69%. chest discomfort noncardiac in origin .. Anemia (Acute) Allergic reaction to insect sting (Acute) Insect sting anaphylaxis. Oral lesion (Acute) Trigger finger, left middle finger (Acute) Desensitization to allergens (Acute) Per [facility] Allergy note from 08/30/21 Hand joint pain (Acute) IMPROVED with Orhto/Injection. 08/2021. Acute on chronic, worsened. Swollen and stiff .. significant effort needed to open/close hand/grasp. Snapping of middle fingers, B/L (trigger finger?). Altered urinary elimination pattern (Acute) Joint pain (Acute) Migraine headache with aura (Chronic) saw Neuro (03/2019). [facility] Open MRI (w/o) if H/A persist. Hx chronic neck and back pain with opiate dependence, p/w increased headaches. D/C sumatriptan, advil -- use rizatriptan 10 mg as needed. He should not use more than 2 in a 24-hour period and no more than 4 in a 1 week period. Vitamin D deficiency (Chronic 03/20/13) level said to be <10, Dr Kim (RHEUM) . 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 Hx Pain Clinic ([facility]), Hx weaning off opioids, Methadone re- started with good results. Oxycod provided for break-through pain, wean more difficult over . Reconsidering Methadone as 1' and Oxycod decrease, 11/2018. Bilateral low back pain without sciatica (Chronic 11/03/90) chronic injured ; spinal cord implanted stimulator 2003 Neck pain of over 3 months duration (Chronic 11/13/11) Ortho: Dr. Nieto, [facility]. Long Hx .. seing chiro with some relief (less intense, but twinges/shooting pain remain) .. no clear etiology; roled up towel helps. Left sided sciatica (Chronic 07/05/17) s/p Surgery with mixed results including expected pain for life .. 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 Currently not sleeping due to lower back/sciatica pain. 11/2018 [ ] Neurology to help localize sciatic pain as oxycod helps him function at work, post piriformis release surgery. Hypothyroidism (Chronic 12/02/12) ABNL TSH 07/2012 Hypertriglyceridemia (Chronic 11/13/11) very high TG; diabetic level FBS 12/13 Hyperlipidemia (Chronic 11/13/11) high TG, risk 16%-smoker (d/c); goal LDL<130; 01/2016 CV risk 12.6% Hearing loss (Chronic 11/13/11) left ear Gastroesophageal reflux disease without esophagitis (Chronic 11/13/11) mild gastritis on EGD 04/12 Cataract, congenital (Chronic 11/13/11) congenital Adjustment disorder, unspecified (Acute 11/06/16) Adenomatous polyp of colon (Chronic 11/11/15) Dr Demian Hines 2015, [facility] 2020 Medical History (Updated 03/31/22 @ 10:47 by Augie Lang MD) Cataracts, bilateral Chronic neck and back pain Chronic, continuous use of opioids Deafness in L ear Diabetes mellitus Per A1C 6.5 measured in 2020 and 2017.. since resolved/managed with diet, IMPROVED to PREDIABETES LEVELs. Dyslipidemia Fatty liver GERD (gastroesophageal reflux disease) Hepatitis C Impaired fasting blood sugar Impaired fasting glucose (09/06/17) Per 2019 fasting labs .. NOW CTLLD, 02/2022. Long Hx, Pre-diabetes monitoring ... BG levels 95 - 132 with usual higher numbers post ice-cream night before. A1C improved (6.1) from 01/2018 (6.5). Patent foramen ovale Tobacco use Surgical History Arthroplasty of knee (06/27/11) COLONOSCOPY (09/2021) 2020 Removal spinal cord stimulator and generator (04/16/18) Trigger Finger release (08/30/15) Right ring finger. Dr. Holloway Family History Mother , heart at age 87. Diabetes Father , CVA at age 81. Stroke Sister Age: 67 Personal history of malignant neoplasm breast, thyroid Brother Age: 69 Personal history of malignant neoplasm Brother No problems noted. Brother No problems noted. 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 - [employer] Current gender identity: male What type of physical activity do you participate in: walking Seatbelt use: always Drive intox or ride w/intox compactor driver: No Working smoke detector in home: Yes Fire extinguisher in home: Yes Carbon monox detector in home: Yes Do you feel safe at home: Yes Do you feel safe in your relationship?: Yes Exam Narrative Exam Narrative: Physical Examination General: alert, awake, cooperative, resting comfortably, no acute distress HEENT: normocephalic, atraumatic; PERRL, EOM intact, conjunctiva normal; no nasal discharge; moist mucous membranes, oral and pharyngeal mucosa normal, tolerating secretions Neck: supple, trachea midline; full ROM Chest: normal to inspection Respiratory: normal respiratory effort, speaking in full sentences, clear to auscultation, no wheezing, rales or rhonchi Cardiac: regular rate, regular rhythm, S1S2 intact, no murmurs rubs or gallops GI: abdomen soft, non-tender, non-distended; no palpable mass or hepatosplenomegaly Skin: Indurated erythematous region of skin involving tip of nose, no fluctuance, no purulent drainage, does have serous drainage of area, no involvement of nares, no fluctuance crepitus or purulence Neuro: AAOx3, normal speech, moving all extremities Psych: Appropriate mood and affect Course Vital Signs Vital signs: Vital Signs Temperature 36.6 C 03/31/22 10:02 Pulse 68 03/31/22 10:02 Respiratory Rate 16 03/31/22 10:02 Blood Pressure 161/74 H 03/31/22 10:02 Pulse Oximetry 96 03/31/22 10:02 Temperature 36.6 C 03/31/22 10:02 Temperature Source Oral 03/31/22 10:02 Pulse 68 03/31/22 10:02 Respiratory Rate 16 03/31/22 10:02 Respiratory Effort 03/31/22 10:02 Blood Pressure 161/74 H 03/31/22 10:02 Blood Pressure Position Sitting 03/31/22 10:02 Pulse Oximetry 96 03/31/22 10:02 Oxygen Delivery Method Room Air 03/31/22 10:02 Oxygen Flow Rate 0 03/31/22 10:02 Pain Level 0 03/31/22 10:02
[2022-03-31 10:58] VITALS: PULSE 72; RESP 16; O2SAT 99
[2022-03-31] MEDS: Cephalexin 500 MG CAP PO (10:59)
== END 2022-03-31 11:00 | disposition home or self-care (01) ==
PROVIDERS: Emergency Provider Emergency Medicine; PCP Student in an Organized Health Care Education/Training Program
DX: A46 Erysipelas (principal)
CPT/HCPCS: 99281; 99282; 99283

== ENCOUNTER 2022-03-31 22:12 | Emergency (ER) | payer MEDICARE, SELFPAY ==
[2022-03-31 22:23] VITALS: BP 147/72; PULSE 66; RESP 18; TEMP 36.6; O2SAT 74
--- NOTE | 2022-03-31 22:28 | ED.GENADUL_ITS ---
Discharge Plan Disposition Patient Disposition: HOME Condition: Good Discharge Details Clinical Impression: Erysipelas Primary Care Provider: Lorie Holliday ED Provider: Doni Farley Home Meds and New Rx's Prescriptions: Continued (DME) lancets [OneTouch Delica Lancets] 33 gauge misc 1 ea Miscellaneous DAILY Qty: 90 3RF Rx Instructions: diabetes, check daily to keep A1C < 7.5 omeprazole 20 mg capsule,delayed release(DR/EC) 20 mg PO DAILY Qty: 90 3RF cholecalciferol (vitamin D3) [Vitamin D3] 25 mcg (1,000 unit) capsule 1,000 unit PO BID Qty: 100 0RF Rx Instructions: Trial TWICE day x 1 month, Vitamin D supplement methadone 10 mg tablet 10 mg PO BID MDD 20mg Qty: 56 0RF oxycodone 10 mg tablet 15 mg PO BID MDD 30mg PRN (Reason: pain) Qty: 84 0RF ibuprofen 600 mg tablet 600 mg PO Q8H PRN (Reason: inflammation and arthritic pain) Qty: 30 1RF clonidine HCl 0.1 mg tablet 0.1 mg PO BID Qty: 180 3RF Rx Instructions: for help with methadone taper and BP (DME) OneTouch Verio test strips Strip 1 ea Miscellaneous DAILY Qty: 90 3RF Rx Instructions: Daily BG testing for Diabetes, to keep A1C < 7 TEST DAILY e11.9 levothyroxine 75 mcg tablet 75 mcg PO DAILY Qty: 90 3RF atorvastatin 20 mg tablet 20 mg PO DAILY Qty: 90 3RF [place] Fish Oil 1 cap PO DAILY Qty: 90 0RF albuterol sulfate [ProAir HFA] 90 mcg/actuation HFA aerosol inhaler 2 puff inhalation Q6H PRN (Reason: shortness of breath or wheezing) Qty: 8.5 1RF Rx Instructions: Trial daily for shortness of breath; use with spacer (from [facility]) epinephrine [EpiPen 2-Philip] 0.3 mg/0.3 mL auto-injector 0.3 mg IM ONCE Qty: 2 2RF cephalexin 500 mg capsule 500 mg PO QID 5 Days Qty: 20 0RF Discharge Instructions Instructions: Cellulitis (ED) Additional Instructions: At this time you have evidence of erysipelas, which is a superficial skin infection. You are on the appropriate antibiotic. Please continue taking the Keflex as directed. Please monitor your symptoms closely, and if you have any significant changes do not hesitate to reach out and re-discuss your case with us. If you notice any worsening of your symptoms, or any new symptoms such as vomiting, diarrhea, fever, chills, shortness of breath, chest pain, numbness, weakness, or fainting , please return immediately to the emergency department for reevaluation. Please follow up with your primary care provider as soon as possible for reassessment and reevaluation. As always, it was a pleasure participating in your medical care today. Referrals: Lorie Holliday DO [Primary Care Provider] - Medical Decision Making This is a pleasant 66-year-old male who presents for recheck. Patient was here earlier today at about 10 AM, where he was diagnosed with cellulitis of the nose and face. He was started on Keflex. He has taken at least 2 doses of his antibiotics since discharge. He presents today for reassessment secondary to slight spreading of the redness onto his left cheek. He denies fever or chills. He denies chest pain or shortness of breath. No difficulty swallowing or drinking. No other complaints at time Physical exam demonstrates mild redness on the tip of his nose and the left cheek. Symptoms consistent with very mild erysipelas. No evidence of necrotizing fasciitis, or other significant abnormality patient patient notably stable. Since he is only taken 2 doses of his antibiotic, will recommend continuation of the antibiotic at this stage. I do not feel that transitioning to clindamycin would be appropriate at this stage of the treatment. We will continue to monitor. Recommend close follow-up and reassessment if he has any worsening of his symptoms. I have extensively reviewed the treatment plan and discharge instructions with the patient. I have addressed all patient concerns at this time. The patient was made aware of what symptoms to monitor for that would warrant a return to the emergency department. Discussed the plan with the patient, they demonstrate verbal understanding and agreement with our assessment and plan at this time. The documentation in this chart was dictated using [employer] dictation software. Please excuse any dictation errors. HPI General Date/Time Provider Initiated Documentation: 03/31/22 22:23 . HPI Narrative: This is a pleasant 66-year-old male who presents for recheck. Patient was here earlier today at about 10 AM, where he was diagnosed with cellulitis of the nose and face. He was started on Keflex. He has taken at least 2 doses of his antibiotics since discharge. He presents today for reassessment secondary to slight spreading of the redness onto his left cheek. He denies fever or chills. He denies chest pain or shortness of breath. No difficulty swallowing or drinking. No other complaints at time Related Data Home Medications Medication Instructions Recorded Confirmed lancets 33 gauge ([facility] ea 01/07/19 03/31/22 Lancets) ibuprofen 600 mg tablet 600 mg PO Q8H PRN inflammation and 12/18/20 03/31/22 arthritic pain #30 tabs omeprazole 20 mg capsule,delayed 20 mg PO DAILY #90 caps 03/11/21 03/31/22 release clonidine HCl 0.1 mg tablet 0.1 mg PO BID #180 tab-caps 07/26/21 03/31/22 cholecalciferol (vitamin D3) 25 1,000 unit PO BID #100 tab-caps 08/25/21 03/31/22 mcg (1,000 unit) capsule (Vitamin D3) blood sugar diagnostic ([facility] #90 strips 11/13/21 03/31/22 Verio test strips) levothyroxine 75 mcg tablet 75 mcg PO DAILY #90 tab-caps 01/08/22 03/31/22 atorvastatin 20 mg tablet 20 mg PO DAILY #90 tabs 01/19/22 03/31/22 methadone 10 mg tablet 10 mg PO BID #56 tabs 02/12/22 03/31/22 oxycodone 10 mg tablet 15 mg PO BID PRN pain #84 tabs 02/12/22 03/31/22 [place] Fish Oil 1 cap PO DAILY #90 caps 02/20/22 03/31/22 albuterol sulfate 90 mcg/actuation 2 puff inhalation Q6H PRN 03/09/22 03/31/22 aerosol inhaler (ProAir HFA) shortness of breath or wheezing #8.5 grams epinephrine 0.3 mg/0.3 mL 0.3 mg (0.3 mL) IM ONCE #2 ea 03/28/22 03/31/22 injection, auto-injector (EpiPen 2-Philip) cephalexin 500 mg capsule 500 mg PO QID 5 days #20 caps 03/31/22 Previous Rx's Medication Instructions Recorded lancets 33 gauge (OneTouch Delica #90 ea 01/07/19 Lancets) ibuprofen 600 mg tablet 600 mg PO Q8H PRN inflammation and 12/18/20 arthritic pain #30 tabs omeprazole 20 mg capsule,delayed 20 mg PO DAILY #90 caps 03/11/21 release clonidine HCl 0.1 mg tablet 0.1 mg PO BID #180 tab-caps 07/26/21 cholecalciferol (vitamin D3) 25 1,000 unit PO BID #100 tab-caps 08/25/21 mcg (1,000 unit) capsule (Vitamin D3) blood sugar diagnostic (OneTouch #90 strips 11/13/21 Verio test strips) levothyroxine 75 mcg tablet 75 mcg PO DAILY #90 tab-caps 01/08/22 atorvastatin 20 mg tablet 20 mg PO DAILY #90 tabs 01/19/22 methadone 10 mg tablet 10 mg PO BID #56 tabs 02/12/22 oxycodone 10 mg tablet 15 mg PO BID PRN pain #84 tabs 02/12/22 [place] Fish Oil 1 cap PO DAILY #90 caps 02/20/22 albuterol sulfate 90 mcg/actuation 2 puff inhalation Q6H PRN 03/09/22 aerosol inhaler (ProAir HFA) shortness of breath or wheezing #8.5 grams epinephrine 0.3 mg/0.3 mL 0.3 mg (0.3 mL) IM ONCE #2 ea 03/28/22 injection, auto-injector (EpiPen 2-Philip) cephalexin 500 mg capsule 500 mg PO QID 5 days #20 caps 03/31/22 Allergies Allergy/AdvReac Type Severity Reaction Status Date / Time bee venom protein (honey bee) Allergy Severe Anaphylaxis Verified 03/31/22 22:27 escitalopram oxalate AdvReac Intermediate palpitation Verified 03/31/22 22:27 [From Lexapro] s paroxetine AdvReac Intermediate DIZZINESS Verified 03/31/22 22:27 BETTE Inhibitors AdvReac Verified 03/31/22 22:27 yellow and white hornet, wasp Allergy Severe anaphylaxis Uncoded 03/31/22 22:27 yellow jacke Allergy Severe Anaphylaxsi Uncoded 03/31/22 22:27 s beta blockers AdvReac Uncoded 03/31/22 22:27 General Stated Complaint: RashLesion BRI: 4 Review of Systems All systems reviewed & are unremarkable except as noted in HPI and below PFSH All Active Problems Skin infection (Acute) Erysipelas (Acute) Tinea unguium (Acute) Hx of steroid therapy (Acute) SOB (shortness of breath) (Acute) with mild exertion or conversation, NEW O[place]ET At high risk for osteoporosis (Acute) Nail lesion (Acute) rt toe ... foreign object vs melanoma (?) Encounter for screening for lung cancer (Acute 09/06/17) screen begun 10/2015; stopped smoking 2005: complete screen 10/2021. FOCAL CHANGES IDENTIFIED 11/21/17, so CT(chest) w/ contrast requested. Ordering screening CT (chest) 02/05/19. Lung nodule < 6cm on CT (Acute) following with CCT .. no change, 2021.. Hx of smoking (Chronic) Lung Screening, 2017, 2018 ((31 yrs))((quit 2005)) Essential hypertension (Chronic 03/01/17) High BPs w/o clonidine .. monitor & review for possible med changes as clonidine is not primary Rx. (06/2019) Primary osteoarthritis of right knee (Acute) Synvisc injection: 05/11/2019 Hymenoptera allergy (Acute) New finding, anaphlxs 06/2019! 's Epipen saved him. Patent foramen ovale (Chronic 11/13/11) dr ROBLES CARDIOL FA; No prophylactic antibiotics indicated 04/2014 normal nucl perf scan 04/20/[address] Robles.. No myocardial perf defects, LVSyt Function normal w/ EF 69%. chest discomfort noncardiac in origin .. Anemia (Acute) Allergic reaction to insect sting (Acute) Insect sting anaphylaxis. Oral lesion (Acute) Trigger finger, left middle finger (Acute) Desensitization to allergens (Acute) Per [facility] Allergy note from 08/30/21 Hand joint pain (Acute) IMPROVED with Orhto/Injection. 08/2021. Acute on chronic, worsened. Swollen and stiff .. significant effort needed to open/close hand/grasp. Snapping of middle fingers, B/L (trigger finger?). Altered urinary elimination pattern (Acute) Joint pain (Acute) Migraine headache with aura (Chronic) saw Neuro (03/2019). Note: No imagin from [facility], [ ] Open MRI (w/o) if H/A persist. Hx chronic neck and back pain with opiate dependence, p/w increased headaches. D/C sumatriptan, advil -- use rizatriptan 10 mg as needed. He should not use more than 2 in a 24-hour period and no more than 4 in a 1 week period. Vitamin D deficiency (Chronic 03/20/13) level said to be <10, Dr Kim (RHEUM) . 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 Hx Pain Clinic ([facility]), Hx weaning off opioids, Methadone re- started with good results. Oxycod provided for break-through pain, wean more difficult over . Reconsidering Methadone as 1' and Oxycod decrease, 11/2018. Bilateral low back pain without sciatica (Chronic 11/03/90) chronic injured ; spinal cord implanted stimulator 2003 Neck pain of over 3 months duration (Chronic 11/13/11) Ortho: Dr. Nieto, [facility]. Long Hx .. seing chiro with some relief (less intense, but twinges/shooting pain remain) .. no clear etiology; roled up towel helps. Left sided sciatica (Chronic 07/05/17) s/p Surgery with mixed results including expected pain for life .. 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 Currently not sleeping due to lower back/sciatica pain. 11/2018 [ ] Neurology to help localize sciatic pain as oxycod helps him function at work, post piriformis release surgery. Hypothyroidism (Chronic 12/02/12) ABNL TSH 07/2012 Hypertriglyceridemia (Chronic 11/13/11) very high TG; diabetic level FBS 12/13 Hyperlipidemia (Chronic 11/13/11) high TG, risk 16%-smoker (d/c); goal LDL<130; 01/2016 CV risk 12.6% Hearing loss (Chronic 11/13/11) left ear Gastroesophageal reflux disease without esophagitis (Chronic 11/13/11) mild gastritis on EGD 04/12 Cataract, congenital (Chronic 11/13/11) congenital Adjustment disorder, unspecified (Acute 11/06/16) Adenomatous polyp of colon (Chronic 11/11/15) Dr Demian Hines 2015, [facility] 2020 Medical History Cataracts, bilateral Chronic neck and back pain Chronic, continuous use of opioids Deafness in L ear Diabetes mellitus Per A1C 6.5 measured in 2020 and 2017.. since resolved/managed with diet, IMPROVED to PREDIABETES LEVELs. Dyslipidemia Fatty liver GERD (gastroesophageal reflux disease) Hepatitis C Impaired fasting blood sugar Impaired fasting glucose (09/06/17) Per 2019 fasting labs .. NOW CTLLD, 02/2022. Long Hx, Pre-diabetes monitoring ... BG levels 95 - 132 with usual higher numbers post ice-cream night before. A1C improved (6.1) from 01/2018 (6.5). Patent foramen ovale Tobacco use Surgical History Arthroplasty of knee (06/27/11) COLONOSCOPY (09/2021) 2014, 2020 Removal spinal cord stimulator and generator (04/16/18) Trigger Finger release (08/30/15) Right ring finger. Dr. Holloway Family History Mother , heart at age 87. Diabetes Father , CVA at age 81. Stroke Sister Age: 67 Personal history of malignant neoplasm breast, thyroid Brother Age: 69 Personal history of malignant neoplasm Brother No problems noted. Brother No problems noted. 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 3.ENT: Atraumatic external nose and ears. Moist MM. Neck: Symmetric, trachea midline, No thyromegaly. 4.CVS: +S1/S2, No murmurs or gallops. Peripheral pulses 2+ and equal in all extremities. Brisk capillary refill in all extremities. 5.RESP: Unlabored respiratory effort. Clear to auscultation bilaterally. No wheezes rales or rhonchi 6.GI: Soft, Nontender/Nondistended, No hepatosplenomegaly. No guarding or rebound. 7.MSK: Normocephalic/Atraumatic, Extremities w/o deformity or ttp No cyanosis or clubbing, Normal movement of all extremities 8.Skin: Warm, Dry. Mild redness over the tip of the patient's nose, as well as over the left cheek. No significant induration. The red spot in the patient's left cheek is roughly 3 cm in diameter. 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 Sensation grossly intact, no focal neurologic deficits. 10.Psych: (AAO) x3. Appropriate mood and affect Course Vital Signs Vital signs: Vital Signs Temperature 36.6 C 03/31/22 22:23 Pulse 66 03/31/22 22:23 Respiratory Rate 18 03/31/22 22:23 Blood Pressure 147/72 H 03/31/22 22:23 Pulse Oximetry 74 L 03/31/22 22:23 Temperature 36.6 C 03/31/22 22:23 Temperature Source Temporal Artery Scan 03/31/22 22:23 Pulse 66 03/31/22 22:23 Respiratory Rate 18 03/31/22 22:23 Respiratory Effort Non-Labored 03/31/22 22:25 Blood Pressure 147/72 H 03/31/22 22:23 Blood Pressure Position Standing 03/31/22 22:23 Pulse Oximetry 74 L 03/31/22 22:23 Oxygen Delivery Method Room Air 03/31/22 22:23 Oxygen Flow Rate 0 03/31/22 22:23 Pain Level 0 03/31/22 22:23 PAWSS Have you Been Recently Intoxicated or Drunk Within the Last 30 days?: No Have you Ever Experienced Previous Episodes of Alcohol Withdrawal?: No Have you ever Experienced Withdrawal Seizures?: No Have you ever Experienced Delirium Tremens(DT)s?: No Have you ever undergone Alcohol Rehabilitation Treatment (i.e, inpt ot outpatient treatment programs)?: No Have you ever Experienced Blackouts?: No Have you ever Combined Alcohol with other Downers within the last 90 days?: No Have you ever Combined Alcohol with any other Substance of Abuse during the last 90 days?: No Positive Blood Alcohol level on Presentation? [PCS.BAL]: No Evidence of Increased Autonomic Activity (i.e. HR>120, tremor, sweating, agitation, nausea)?: No Result: 0
== END 2022-03-31 22:39 | disposition home or self-care (01) ==
PROVIDERS: Emergency Provider Student in an Organized Health Care Education/Training Program; PCP Student in an Organized Health Care Education/Training Program
DX: A46 Erysipelas (principal)
CPT/HCPCS: 99281; 99282

== ENCOUNTER 2022-04-02 08:44 | Emergency (ER) | payer MEDICARE, SELFPAY ==
[2022-04-02 08:47] VITALS: BP 177/70; PULSE 64; TEMP 36.5; O2SAT 98
[2022-04-02 10:12] VITALS: BP 144/70; PULSE 57; RESP 18; TEMP 36.3; O2SAT 98
--- NOTE | 2022-04-02 10:19 | ED.GENADUL_ITS ---
Discharge Plan Disposition Patient Disposition: HOME Condition: Stable Discharge Details Clinical Impression: Rash Primary Care Provider: Lorie Holliday ED Provider: Cherelle Marinelli Home Meds and New Rx's Prescriptions: New sulfamethoxazole-trimethoprim [Bactrim DS] 800-160 mg tablet 1 tab PO BID Qty: 9 0RF valacyclovir [Valtrex] 1 gram tablet 1,000 mg PO TID Qty: 20 0RF Continued (DME) lancets [OneTouch Delica Lancets] 33 gauge misc 1 ea Miscellaneous DAILY Qty: 90 3RF Rx Instructions: diabetes, check daily to keep A1C < 7.5 omeprazole 20 mg capsule,delayed release(DR/EC) 20 mg PO DAILY Qty: 90 3RF methadone 10 mg tablet 10 mg PO BID MDD 20mg Qty: 56 0RF oxycodone 10 mg tablet 15 mg PO BID MDD 30mg PRN (Reason: pain) Qty: 84 0RF ibuprofen 600 mg tablet 600 mg PO Q8H PRN (Reason: inflammation and arthritic pain) Qty: 30 1RF clonidine HCl 0.1 mg tablet 0.1 mg PO BID Qty: 180 3RF Rx Instructions: for help with methadone taper and BP (DME) OneTouch Verio test strips Strip 1 ea Miscellaneous DAILY Qty: 90 3RF Rx Instructions: Daily BG testing for Diabetes, to keep A1C < 7 TEST DAILY e11.9 levothyroxine 75 mcg tablet 75 mcg PO DAILY Qty: 90 3RF atorvastatin 20 mg tablet 20 mg PO DAILY Qty: 90 3RF Maish Vaya Albin Fish Oil 1 cap PO DAILY Qty: 90 0RF albuterol sulfate [ProAir HFA] 90 mcg/actuation HFA aerosol inhaler 2 puff inhalation Q6H PRN (Reason: shortness of breath or wheezing) Qty: 8.5 1RF Rx Instructions: Trial daily for shortness of breath; use with spacer (from ZANE) epinephrine [EpiPen 2-Philip] 0.3 mg/0.3 mL auto-injector 0.3 mg IM ONCE Qty: 2 2RF cholecalciferol (vitamin D3) [Vitamin D3] 25 mcg (1,000 unit) capsule 1,000 unit PO DAILY Rx Instructions: Trial TWICE day x 1 month, Vitamin D supplement Discharge Instructions Instructions: Shingles (ED), Cellulitis (ED), Acute Rash (ED) Additional Instructions: Please return immediately to the emergency department if you develop any new or worsening symptoms, if your condition does not improve as expected, or if you become otherwise concerned. It is extremely important that you call soon as possible to make an appointment to be seen in follow-up for this visit by your primary care doctor. Referrals: Lorie Holliday, [Primary Care Provider] - Discharge Data Discharge Date/Time-TO BE ENTERED AT DEPARTURE: 04/02/22 11:30 Medical Decision Making Myron Espana is a 66-year-old man with a history of hypertension, hyperlipidemia, non-insulin dependent diabetes presenting to emergency department with facial rash. Patient is accompanied by his also present history. Patient reports that he was seen here 03/31/2022 in the morning for rash, started on Keflex. Patient reports that he returned to the emergency department that afternoon out of concern that rash is spreading, patient was reassured, plan to continue Keflex, patient discharged home. Patient reports that rash has now spread from the tip of his nose where it started to his left cheek, left earlobe. 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 He states that he also has yellow weeping from areas of rash. He denies any pain. He denies fever, vision changes, cough, shortness of breath, vomiting, diarrhea, numbness, weakness. Patient states that he did have the sh ingles vaccine. Patient states that that he had shingles years ago on his torso and it was extremely painful. On exam patient is very well and nontoxic-appearing. None confluent rash to left side of the face involving tip of nose, left cheek, left earlobe, left ear canal, some yellow crusting. No discharge from the eyes, no conjunctival injection, normal Fluorescein staining and slitlamp exam, no fluorescein uptake. No involvement of the lip or oropharynx. No other rash to the body. Concern for zoster with secondary bacterial infection versus impetigo versus other. Exam of the eye is unrevealing; there is no herpes ophthalmicus. Exam/history at this time is not consistent with facial abscess, meningitis, deep space infection, eye involvement, sepsis, other systemic process. Plan to add Bactrim and Valtrex, plan for patient to continue with current Keflex course. I had a discussion with Patient regarding return to emergency department precautions, home care, and importance of outpatient follow-up. Pt verbalizes understanding of the plan and is amenable. Patient discharged to home with clear plan for outpatient follow-up. All questions were answered. Disposition decision was made weighing the risks and benefits of hospitalization versus outpatient treatment, the risk for further decompensation, and the patient's wishes. Medical Records Medical records reviewed: Yes I reviewed the patient's medical records. Lab Data Lab results reviewed: Yes I reviewed the patient's lab results. HPI General Mode of arrival: ambulatory . Date/Time Provider Initiated Documentation: 04/02/22 09:06 . Limitations to Documentation: no limitations . Information obtained by: patient, RN notes reviewed and old records reviewed . HPI Narrative: Myron Espana is a 66-year-old man with a history of hypertension, hyperlipidemia, non-insulin dependent diabetes presenting to emergency department with facial rash. Patient is accompanied by his also present history. Patient reports that he was seen here 03/31/2022 in the morning for rash, started on Keflex. Patient reports that he returned to the emergency department that afternoon out of concern that rash is spreading, patient was reassured, plan to continue Keflex, patient discharged home. Patient reports that rash has now spread from the tip of his nose where it started to his left cheek, left earlobe. 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 He states that he also has yellow weeping from areas of rash. He denies any pain. He denies fever, vision changes, cough, shortness of breath, vomi ting, diarrhea, numbness, weakness. Patient states that he did have the shingles vaccine. Patient states that that he had shingles years ago on his torso and it was extremely painful. Related Data Home Medications Medication Instructions Recorded Confirmed lancets 33 gauge (OneOscaruch Delkrissy #90 ea 01/07/19 04/03/22 Lancets) ibuprofen 600 mg tablet 600 mg PO Q8H PRN inflammation and 12/18/20 04/03/22 arthritic pain #30 tabs omeprazole 20 mg capsule,delayed 20 mg PO DAILY #90 caps 03/11/21 04/03/22 release clonidine HCl 0.1 mg tablet 0.1 mg PO BID #180 tab-caps 07/26/21 04/03/22 blood sugar diagnostic (OneTouch #90 strips 11/13/21 04/03/22 Verio test strips) levothyroxine 75 mcg tablet 75 mcg PO DAILY #90 tab-caps 01/08/22 04/03/22 atorvastatin 20 mg tablet 20 mg PO DAILY #90 tabs 01/19/22 04/03/22 methadone 10 mg tablet 10 mg PO BID #56 tabs 02/12/22 04/03/22 oxycodone 10 mg tablet 15 mg PO BID PRN pain #84 tabs 02/12/22 04/03/22 Maish Vaya Albin Fish Oil 1 cap PO DAILY #90 caps 02/20/22 04/03/22 albuterol sulfate 90 mcg/actuation 2 puff inhalation Q6H PRN 03/09/22 04/03/22 aerosol inhaler (ProAir HFA) shortness of breath or wheezing #8.5 grams epinephrine 0.3 mg/0.3 mL 0.3 mg (0.3 mL) IM ONCE #2 ea 03/28/22 04/03/22 injection, auto-injector (EpiPen 2-Philip) cholecalciferol (vitamin D3) 25 1,000 unit PO DAILY 04/02/22 04/03/22 mcg (1,000 unit) capsule (Vitamin D3) sulfamethoxazole 800 1 tab PO BID #9 tabs 04/02/22 04/03/22 mg-trimethoprim 160 mg tablet (Bactrim DS) valacyclovir 1 gram tablet 1,000 mg PO TID #20 tabs 04/02/22 04/03/22 (Valtrex) Previous Rx's Medication Instructions Recorded lancets 33 gauge (OneTouch Delica #90 ea 01/07/19 Lancets) ibuprofen 600 mg tablet 600 mg PO Q8H PRN inflammation and 12/18/20 arthritic pain #30 tabs omeprazole 20 mg capsule,delayed 20 mg PO DAILY #90 caps 03/11/21 release clonidine HCl 0.1 mg tablet 0.1 mg PO BID #180 tab-caps 07/26/21 blood sugar diagnostic (OneTouch #90 strips 11/13/21 Verio test strips) levothyroxine 75 mcg tablet 75 mcg PO DAILY #90 tab-caps 01/08/22 atorvastatin 20 mg tablet 20 mg PO DAILY #90 tabs 01/19/22 methadone 10 mg tablet 10 mg PO BID #56 tabs 02/12/22 oxycodone 10 mg tablet 15 mg PO BID PRN pain #84 tabs 02/12/22 Maish Vaya Albin Fish Oil 1 cap PO DAILY #90 caps 02/20/22 albuterol sulfate 90 mcg/actuation 2 puff inhalation Q6H PRN 03/09/22 aerosol inhaler (ProAir HFA) shortness of breath or wheezing #8.5 grams epinephrine 0.3 mg/0.3 mL 0.3 mg (0.3 mL) IM ONCE #2 ea 03/28/22 injection, auto-injector (EpiPen 2-Philip) sulfamethoxazole 800 1 tab PO BID #9 tabs 04/02/22 mg-trimethoprim 160 mg tablet (Bactrim DS) valacyclovir 1 gram tablet 1,000 mg PO TID #20 tabs 04/02/22 (Valtrex) Allergies Allergy/AdvReac Type Severity Reaction Status Date / Time bee venom protein (honey bee) Allergy Severe Anaphylaxis Verified 04/03/22 14:51 escitalopram oxalate AdvReac Intermediate palpitation Verified 04/03/22 14:51 [From Lexapro] s paroxetine AdvReac Intermediate DIZZINESS Verified 04/03/22 14:51 BETTE Inhibitors AdvReac Verified 04/03/22 14:51 yellow and white hornet, wasp Allergy Severe anaphylaxis Uncoded 04/03/22 14:51 yellow jacke Allergy Severe Anaphylaxsi Uncoded 04/03/22 14:51 s beta blockers AdvReac Uncoded 04/03/22 14:51 General Stated Complaint: RashLesion BRI: 4 Review of Systems Narrative: Constitutional: denies fevers Eyes: denies eye pain, vision change ENT: denies ear pain, dental pain, sore throat, intraoral lesions/pain Cardiovascular: denies chest pain Respiratory: denies SOB, cough GI: denies abdominal pain, vomiting, diarrhea : denies flank pain MSK: denies back pain, neck pain, arthralgias, myalgias Skin: Reports facial rash as per HPI, denies any other rash Neuro: denies headaches, numbness, weakness PFSH All Active Problems (Updated 04/02/22 @ 11:13 by Cherelle Marinelli MD) Skin infection (Acute) Erysipelas (Acute) Rash (Acute) Tinea unguium (Acute) Hx of steroid therapy (Acute) SOB (shortness of breath) (Acute) with mild exertion or conversation, NEW O[place]ET At high risk for osteoporosis (Acute) Nail lesion (Acute) rt toe ... foreign object vs melanoma (?) Encounter for screening for lung cancer (Acute 09/06/17) screen begun 10/2015; stopped smoking 2005: complete screen 10/2021. FOCAL CHANGES IDENTIFIED 11/21/17, so CT(chest) w/ contrast requested. Ordering screening CT (chest) 02/05/19. Lung nodule < 6cm on CT (Acute) following with CCT .. no change, 2021.. Hx of smoking (Chronic) Lung Screening, 2017, 2018 ((31 yrs))((quit 2005)) Essential hypertension (Chronic 03/01/17) High BPs w/o clonidine .. monitor & review for possible med changes as clonidine is not primary Rx. (06/2019) Primary osteoarthritis of right knee (Acute) Synvisc injection: 05/11/2019 Hymenoptera allergy (Acute) New finding, anaphlxs 06/2019! 's Epipen saved him. Patent foramen ovale (Chronic 11/13/11) dr ROBLES CARDIOL [facility]; No prophylactic antibiotics indicated 04/2014 normal nucl perf scan 04/20/[address] Robles.. No myocardial perf defects, LVSyt Function normal w/ EF 69%. chest discomfort noncardiac in origin .. Anemia (Acute) Allergic reaction to insect sting (Acute) Insect sting anaphylaxis. Oral lesion (Acute) Trigger finger, left middle finger (Acute) Desensitization to allergens (Acute) Per [facility] [place] note from 08/30/21 Hand joint pain (Acute) IMPROVED with Orhto/Injection. 08/2021. Acute on chronic, worsened. Swollen and stiff .. significant effort needed to open/close hand/grasp. Snapping of middle fingers, B/L (trigger finger?). Altered urinary elimination pattern (Acute) Joint pain (Acute) Migraine headache with aura (Chronic) saw Neuro (03/2019). Note: No imagin from [place], [ ] Open MRI (w/o) if H/A persist. Hx chronic neck and back pain with opiate dependence, p/w increased headaches. D/C sumatriptan, advil -- use rizatriptan 10 mg as needed. He should not use more than 2 in a 24-hour period and no more than 4 in a 1 week period. Vitamin D deficiency (Chronic 03/20/13) level said to be <10, Dr Kim (RHEUM) . 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 Hx Pain Clinic ([facility]), Hx weaning off opioids, Methadone re- started with good results. Oxycod provided for break-through pain, wean more difficult over . Reconsidering Methadone as 1' and Oxycod decrease, 11/2018. Bilateral low back pain without sciatica (Chronic 11/03/90) chronic injured ; spinal cord implanted stimulator 2003 Neck pain of over 3 months duration (Chronic 11/13/11) Ortho: Dr. Nieto, FA. Long Hx .. seing chiro with some relief (less intense, but twinges/shooting pain remain) .. no clear etiology; roled up towel helps. Left sided sciatica (Chronic 07/05/17) s/p Surgery with mixed results including expected pain for life .. 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 Currently not sleeping due to lower back/sciatica pain. 11/2018 [ ] Neurology to help localize sciatic pain as oxycod helps him function at work, post piriformis release surgery. Hypothyroidism (Chronic 12/02/12) ABNL TSH 07/2012 Hypertriglyceridemia (Chronic 11/13/11) very high TG; diabetic level FBS 12/13 Hyperlipidemia (Chronic 11/13/11) high TG, risk 16%-smoker (d/c); goal LDL<130; 01/2016 CV risk 12.6% Hearing loss (Chronic 11/13/11) left ear Gastroesophageal reflux disease without esophagitis (Chronic 11/13/11) mild gastritis on EGD 04/12 Cataract, congenital (Chronic 11/13/11) congenital Adjustment disorder, unspecified (Acute 11/06/16) Adenomatous polyp of colon (Chronic 11/11/15) Dr Demian Hines 2014, [facility] 2020 Medical History Cataracts, bilateral Chronic neck and back pain Chronic, continuous use of opioids Deafness in L ear Diabetes mellitus Per A1C 6.5 measured in 2020 and 2017.. since resolved/managed with diet, IMPROVED to PREDIABETES LEVELs. Dyslipidemia Fatty liver GERD (gastroesophageal reflux disease) Hepatitis C Impaired fasting blood sugar Impaired fasting glucose (09/06/17) Per 2019 fasting labs .. NOW CTLLD, 02/2022. Long Hx, Pre-diabetes monitoring ... BG levels 95 - 132 with usual higher numbers post ice-cream night before. A1C improved (6.1) from 01/2018 (6.5). Patent foramen ovale Tobacco use Surgical History Arthroplasty of knee (06/27/11) COLONOSCOPY (09/2021) 2020 Removal spinal cord stimulator and generator (04/16/18) Trigger Finger release (08/30/15) Right ring finger. Dr. Holloway Family History Mother , heart at age 87. Diabetes Father , CVA at age 81. Stroke Sister Age: 67 Personal history of malignant neoplasm breast, thyroid Brother Age: 69 Personal history of malignant neoplasm Brother No problems noted. Brother No problems noted. 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 - [employer] Current gender identity: male What type of physical activity do you participate in: walking Seatbelt use: always Drive intox or ride w/intox otr company truck driver: No Working smoke detector in home: Yes Fire extinguisher in home: Yes Carbon monox detector in home: Yes Do you feel safe at home: Yes Do you feel safe in your relationship?: Yes Exam Narrative Exam Narrative: Constitutional: well and [id number], pleasant, conversing normally HENT: head atraumatic/normocephalic/normal inspection, face with nonconfluent areas of mild erythema with scant clear yellow discharge: Tip of nose, left cheek, left earlobe, left ear canal. No lesions on left TM. Areas with appearance of possible ruptured vesicles including tip of nose and left cheek. There is no tenderness palpation of any affected area. No edema of the face other than mild edema of the affected area of the left cheek. No induration, no fluctuance. Mucous membranes moist. No lesions on the lips, no intraoral lesion. Eyes: conjunctiva normal, sclera normal, pupils 3mm b/l ERRLA, no uptake on fluorescein staining, normal slit-lamp exam Neck: no stridor, normal ROM, trachea midline Resp: normal work of breathing, speaking in full sentences Cardio: normal rate, normal rhythm Skin: warm, dry, normal color, no rash Neuro: alert, not altered, grossly non-focal, normal tone Ext: no edema, moving all extremities equally Psych: normal mood, normal affect, normal behavior Course Vital Signs Vital signs: Vital Signs Temperature 36.5 C 04/02/22 08:47 Pulse 64 04/02/22 08:47 Blood Pressure 177/70 H 04/02/22 08:47 Pulse Oximetry 98 04/02/22 08:47 Temperature 36.3 C L 04/02/22 10:12 Temperature Source Tympanic 04/02/22 10:12 Pulse 57 L 04/02/22 10:12 Respiratory Rate 18 04/02/22 10:12 Respiratory Effort Non-Labored 04/02/22 08:55 Blood Pressure 144/70 H 04/02/22 10:12 Blood Pressure Position Sitting 04/02/22 08:47 Pulse Oximetry 98 04/02/22 10:12 Oxygen Delivery Method Room Air 04/02/22 10:12 Oxygen Flow Rate 0 04/02/22 10:12 Pain Level 7 04/02/22 10:12 Comment 04/02/22 10:12 PAWSS Have you Been Recently Intoxicated or Drunk Within the Last 30 days?: No Have you Ever Experienced Previous Episodes of Alcohol Withdrawal?: No Have you ever Experienced Withdrawal Seizures?: No Have you ever Experienced Delirium Tremens(DT)s?: No Have you ever undergone Alcohol Rehabilitation Treatment (i.e, inpt ot outpatient treatment programs)?: No Have you ever Experienced Blackouts?: No Have you ever Combined Alcohol with other Downers within the last 90 days?: No Have you ever Combined Alcohol with any other Substance of Abuse during the last 90 days?: No Positive Blood Alcohol level on Presentation? [PCS.BAL]: No Evidence of Increased Autonomic Activity (i.e. HR>120, tremor, sweating, agitation, nausea)?: No Result: 0
[2022-04-02 10:36] LABS: Abs Immature Grans 0.02 10^3/uL (0.0-0.06); Absolute Basophil Count 0.03 10^3/uL (0.0-0.2); Absolute Eosinophil Count 0.14 10^3/uL (0.0-0.7); Absolute Lymphocyte Count 1.92 10^3/uL (1.2-3.4); Absolute Monocyte Count 0.68 10^3/uL (0.1-0.8); Basophils % 0.5; Eosinophils % 2.3; HCT 39.6 % (40.0-50.0); HGB 13.3 g/dL (13.5-17.5); Immature Grans % 0.3; MCH 30.4 pg (27.0-33.0); MCHC 33.6 % (32.0-36.0); MCV 90 fL (80-95); MPV 9.8 fL (8.0-11.0); Neutrophils % 54.9; Platelet Count 225 10^3/uL (130-400); RBC 4.38 10^6/uL (4.36-5.78); RDW 12.1 % (11.8-14.1); RDW-SD 40.2 fL; WBC 6.19 10^3/uL (4.4-10.8)
[2022-04-02] MEDS: Fluorescein STRIPS 100/BOX 1 MG (10:48)
[2022-04-02 10:52] LABS: ALT 38 U/L (16-63); AST 30 U/L (15-37); Albumin 3.9 g/dL (3.4-5.0); Alkaline Phosphatase 79 U/L (46-116); Anion Gap 9.9 mmol/L (3-11); BUN 15 mg/dL (7-18); Bilirubin, Total 0.5 mg/dL (0.2-1.0); CO2 30.1 mmol/L (21.0-32.0); CREATININE 0.9 mg/dL (0.70-1.30); Calcium 9.1 mg/dL (8.5-10.1); Chloride 104 mmol/L (98-107); Glucose 142 mg/dL (74-106); Potassium 3.6 mmol/L (3.5-5.1); Sodium 144 mmol/L (136-145); Total Protein 7.9 g/dL (6.4-8.2)
[2022-04-02] MEDS: valACYclovir 500 MG TAB 1000 MG PO (11:18)
[2022-04-02] MEDS: Sulfameth/Trimeth DS TAB 1 TAB PO (11:18)
--- NOTE | 2022-04-02 11:35 | NUR.NOTE ---
Nursing Note: Referral faxed to PCP/Dr Holliday for facial rash, to be seen this week. Christy Gupta
== END 2022-04-02 11:30 | disposition home or self-care (01) ==
PROVIDERS: Emergency Provider Student in an Organized Health Care Education/Training Program; PCP Student in an Organized Health Care Education/Training Program
DX: R21 Rash and other nonspecific skin eruption (principal)
CPT/HCPCS: 36415; 80053; 99283; 85025

== ENCOUNTER → 2022-06-28 14:08 | Outpatient (BNVA) | payer MEDICARE, SELFPAY | PROVIDERS: PCP Student in an Organized Health Care Education/Training Program; Referring Provider Student in an Organized Health Care Education/Training Program; Visit Provider Nurse Practitioner Gerontology | DX: R35.1 Nocturia (principal); N40.1 Benign prostatic hyperplasia with lower urinary tract symptoms; N13.8 Other obstructive and reflux uropathy; Z80.42 Family history of malignant neoplasm of prostate | CPT/HCPCS: 36415; 99214 ==

== ENCOUNTER 2022-06-28 18:02 | Outpatient (REF) | payer MEDICARE, SELFPAY ==
[2022-06-28 16:45] LABS: ALT 42 U/L (16-63); AST 33 U/L (15-37); Albumin 3.5 g/dL (3.4-5.0); Alkaline Phosphatase 67 U/L (46-116); Anion Gap 9.4 mmol/L (3-11); BUN 12 mg/dL (7-18); Bilirubin, Total 0.4 mg/dL (0.2-1.0); CO2 29.6 mmol/L (21.0-32.0); CREATININE 0.6 mg/dL (0.70-1.30); Calculated LDL 44 mg/dL (<100); Chloride 106 mmol/L (98-107); Cholesterol 164 mg/dL (<200); Glucose 128 mg/dL (74-106); HDL Cholesterol 57 mg/dL (40-60); Magnesium 1.8 mg/dL (1.8-2.4); Potassium 3.8 mmol/L (3.5-5.1); Sodium 145 mmol/L (136-145); TSH (W/Ref FT4) 0.78 uIU/mL (0.36-3.74); Total Protein 7.2 g/dL (6.4-8.2); Triglyceride 319 mg/dL (<150)
[2022-06-28 17:20] LABS: Vitamin D 25 Total 40.6 ng/mL (30-100)
[2022-06-29 18:44] LABS: PSA, Screening 0.2 ng/mL (<=4.5)
== END 2022-06-28 18:03 | disposition home or self-care (01) ==
LOC: LBN 18:02
PROVIDERS: Nurse Practitioner Gerontology; PCP Student in an Organized Health Care Education/Training Program; Visit Provider Student in an Organized Health Care Education/Training Program
DX: N13.8 Other obstructive and reflux uropathy (principal); N40.1 Benign prostatic hyperplasia with lower urinary tract symptoms; Z80.42 Family history of malignant neoplasm of prostate; I10 Essential (primary) hypertension; E03.9 Hypothyroidism, unspecified; R60.9 Edema, unspecified; E87.8 Other disorders of electrolyte and fluid balance, not elsewhere classified; N28.9 Disorder of kidney and ureter, unspecified; E55.9 Vitamin D deficiency, unspecified; Z12.5 Encounter for screening for malignant neoplasm of prostate
CPT/HCPCS: 80053; 80061; 82306; 84153; 83735; 84443

== ENCOUNTER → 2022-07-19 01:40 | Outpatient (CLI) | payer MEDICARE, SELFPAY ==
--- NOTE | 2022-07-19 07:52 | DI.DEXA_ITS ---
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 No compression deformities identified. Left hip: Total T-Score: -0.2 Total Z-Score: 0.4 T- and Z-scores: Within normal limits. Lumbar Spine: Total T-Score: 1.0 Total Z-Score: 1.9 T- and Z-scores: Within normal limits. IMPRESSION: No evidence of osteoporosis.
== END ==
PROVIDERS: PCP Student in an Organized Health Care Education/Training Program; Visit Provider Student in an Organized Health Care Education/Training Program
DX: Z79.52 Long term (current) use of systemic steroids (principal); Z87.891 Personal history of nicotine dependence; Z91.89 Other specified personal risk factors, not elsewhere classified; Z92.241 Personal history of systemic steroid therapy; Z13.820 Encounter for screening for osteoporosis
CPT/HCPCS: 77080

== ENCOUNTER 2022-07-26 10:12 | Outpatient (CLI) | payer MEDICARE, SELFPAY ==
[2022-07-26 09:26] LABS: Abs Immature Grans 0.03 10^3/uL (0.0-0.06); Absolute Basophil Count 0.04 10^3/uL (0.0-0.2); Absolute Lymphocyte Count 1.97 10^3/uL (1.2-3.4); Absolute Monocyte Count 0.89 10^3/uL (0.1-0.8); Absolute Neutrophil Count 5.38 10^3/uL (1.2-6.7); Basophils % 0.5; HCT 42.3 % (40.0-50.0); HGB 14.4 g/dL (13.5-17.5); Immature Grans % 0.4; Lymphocytes % 23.7; MCH 30.1 pg (27.0-33.0); MCV 88 fL (80-95); MPV 9.8 fL (8.0-11.0); Monocytes % 10.7; Neutrophils % 64.7; Platelet Count 231 10^3/uL (130-400); RBC 4.79 10^6/uL (4.36-5.78); RDW-SD 38.6 fL; WBC 8.31 10^3/uL (4.4-10.8)
[2022-07-26 09:42] LABS: ALT 56 U/L (16-63); AST 40 U/L (15-37); Albumin 3.6 g/dL (3.4-5.0); Alkaline Phosphatase 69 U/L (46-116); Anion Gap 9.1 mmol/L (3-11); BUN 18 mg/dL (7-18); Bilirubin, Total 0.3 mg/dL (0.2-1.0); CO2 28.9 mmol/L (21.0-32.0); CREATININE 0.9 mg/dL (0.70-1.30); Calcium 9.3 mg/dL (8.5-10.1); Chloride 104 mmol/L (98-107); Estimated GFR 93.61 (mL/min/1.73m2); Glucose 140 mg/dL (74-106); Potassium 4.2 mmol/L (3.5-5.1); Sodium 142 mmol/L (136-145); Total Protein 7.4 g/dL (6.4-8.2)
== END 2022-07-26 10:13 | disposition home or self-care (01) ==
LOC: LBO 10:13
PROVIDERS: PCP Student in an Organized Health Care Education/Training Program; Visit Provider Student in an Organized Health Care Education/Training Program
DX: K76.9 Liver disease, unspecified; D64.9 Anemia, unspecified
CPT/HCPCS: 36415; 80053; 85025

== ENCOUNTER → 2022-08-30 03:04 | Outpatient (CLI) | payer MEDICARE, SELFPAY ==
--- NOTE | 2022-08-30 07:45 | DI.RAD_ITS ---
Exam(s) XR ABDOMEN FLAT UPRIGHT EXAM: 2D digital imaging was performed. CLINICAL HISTORY: ? obstipation; abn gas pattern,diarrhea,r19.7,k59.0,r19.8. COMPARISON: No exams were available for comparison TECHNIQUE: Supine and upright views of the abdomen was performed. Images were obtained. FINDINGS: LUNG BASES: Clear. BOWEL GAS PATTERN: Nondistended. There is a moderate amount of stool predominantly in the right colon . FREE AIR: None. CALCIFICATIONS: No radiopaque calcifications. OSSEOUS STRUCTURES: Normal for age. OTHER FINDINGS: Atherosclerosis is present. IMPRESSION: Moderate amount of retained stool. No evidence of bowel obstruction. DATA REPOSITORY: RADIATION DOSE DELIVERED:
== END ==
PROVIDERS: PCP Student in an Organized Health Care Education/Training Program; Visit Provider Student in an Organized Health Care Education/Training Program
DX: K59.00 Constipation, unspecified (principal); R19.7 Diarrhea, unspecified; R19.8 Other specified symptoms and signs involving the digestive system and abdomen
CPT/HCPCS: 74019

== ENCOUNTER → 2022-12-07 08:01 | Outpatient (BNVA) | payer MEDICARE, SELFPAY | PROVIDERS: PCP Student in an Organized Health Care Education/Training Program; Referring Provider Student in an Organized Health Care Education/Training Program; Visit Provider Physician Assistant | DX: M65.332 Trigger finger, left middle finger (principal) | CPT/HCPCS: 20550; J1030 ==

== ENCOUNTER 2023-01-24 03:31 | Outpatient (CLI) | payer MEDICARE, SELFPAY ==
--- NOTE | 2023-01-24 07:15 | DI.CTLCSR_ITS ---
Exam(s) CT CHEST LUNG CANCER SCREEN EXAM: CT CHEST LUNG CANCER SCREEN CLINICAL HISTORY: Screening for lung cancer,FORMER SMOKER, Z87.891 TECHNIQUE: Imaging Protocol: Axial computed tomography images with coronal and sagittal reformatted images were created and reviewed COMPARISON: CT CT CHEST LUNG CANCER SCREEN from 10/26/2021 FINDINGS: Tracheobronchial tree: Patent where visualized. Pulmonary parenchyma: No consolidation or dominant measurable mass. No architectural distortion. Lung Nodules: There is a stable peripheral 3 mm nodule in the right lower lobe. Mediastinum and Phyllis: No dominant adenopathy or fluid collection. The esophagus is unremarkable. Thyroid gland: Unremarkable. Lymph nodes: Unremarkable. Pleura: No effusion or pneumothorax. Heart: The heart is not dilated. Mild coronary artery calcification. No pericardial effusion. Aorta: Thoracic aorta non-dilated.Atherosclerosis. Upper abdomen: Unremarkable. Soft Tissues: Unremarkable. Bones: Within normal limits. IMPRESSION: Stable 3 mm right lower lobe pulmonary nodule. Lung RADS Cat 2 - Benign Appearance / Behavior: Nodules with a very low likelihood of becoming a clin ically active cancer due to size or lack of growth Lung-RADS 1.0 CATEGORIES: Category 0 - Prior chest CT exam(s) being located for comparison. Category 1 - Annual screening in 12 months. No nodules or definitely benign nodules. Category 2 - Annual screening in 12 months. Benign appearance. Nodules with low likelihood of becomin g active cancer. Category 3 - 6-month follow-up. Probably benign. Short-term follow-up suggested. Nodules with low lik elihood of becoming active cancer. Category 4A - 3-month follow-up and CT/PET if >8 mm in size. Suspicious finding. Findings which requi re additional testing. Category 4B - Findings which require additional testing and tissue sampling. Suspicious finding. Category 4X - Category 3 or 4 nodules with additional features or imaging findings that increases the suspicion of malignancy. Modifier S- Potentially clinically significant finding. (Non lung cancer) RADIATION DOSE DELIVERED: 80.71mGy.cm Total DLP 80.71mGy.cmTotal DLP DATA REPOSITORY: All CT scans at this facility are submitted to the National Radiology Data Registry (NRDR) Dose Index Registry (DIR) with the [employer] (ACR). RADIATION OPTIMIZATION: All CT scans at this facility use at least one of these dose optimization te chniques: automated exposure control; mA and/or kV adjustment per patient size (includes targeted exa ms where dose is matched to clinical indication); or iterative reconstruction.
== END 2023-01-24 03:51 ==
PROVIDERS: PCP Student in an Organized Health Care Education/Training Program; Visit Provider Student in an Organized Health Care Education/Training Program
DX: Z12.2 Encounter for screening for malignant neoplasm of respiratory organs (principal); Z87.891 Personal history of nicotine dependence; R91.1 Solitary pulmonary nodule
CPT/HCPCS: 71271

== ENCOUNTER 2023-04-30 10:05 | Emergency (ER) | payer MEDICARE, SELFPAY ==
[2023-04-30 10:15] VITALS: BP 134/72; PULSE 74; RESP 18; TEMP 36.4; O2SAT 98
--- NOTE | 2023-04-30 10:30 | ED.GENADUL_ITS ---
Discharge Plan Disposition Patient Disposition: Home Condition: Stable Discharge Details Clinical Impression: Lesion of skin of face Primary Care Provider: Lorie Holliday ED Provider: Mayuri Gonzales Home Meds and New Rx's Prescriptions: Continued lorazepam [Ativan] 1 mg tablet 1 mg PO QHS PRN (Reason: anticipatory anxiety) Qty: 10 0RF Rx Instructions: Use for travel (DME) lancets [Mobissimo[employer] Lancets] 33 gauge misc 1 ea Miscellaneous DAILY Qty: 90 3RF Rx Instructions: diabetes, check daily to keep A1C < 7.5 ibuprofen 600 mg tablet 600 mg PO Q8H PRN (Reason: inflammation and arthritic pain) Qty: 30 1RF [employer] Fish Oil 1 cap PO DAILY Qty: 90 0RF albuterol sulfate [ProAir HFA] 90 mcg/actuation HFA aerosol inhaler 2 puff inhalation Q6H PRN (Reason: shortness of breath or wheezing) Qty: 8.5 1RF Rx Instructions: Trial daily for shortness of breath; use with spacer (from ZANE) omeprazole 20 mg capsule,delayed release(DR/EC) 20 mg PO DAILY Qty: 90 3RF clonidine HCl 0.1 mg tablet 0.1 mg PO BID Qty: 180 3RF Rx Instructions: for help with methadone taper and BP levothyroxine 75 mcg tablet 75 mcg PO DAILY Qty: 90 3RF atorvastatin 20 mg tablet 20 mg PO DAILY Qty: 90 3RF epinephrine [EpiPen 2-Philip] 0.3 mg/0.3 mL auto-injector 0.3 mg IM ONCE Qty: 2 2RF (DME) [employer] Verio test strips Strip 1 ea Miscellaneous DAILY Qty: 90 3RF Rx Instructions: Daily BG testing for Diabetes, to keep A1C < 7 TEST DAILY e11.9 methadone 10 mg tablet 10 mg PO BID MDD 20 mg Qty: 56 0RF oxycodone 10 mg tablet 15 mg PO BID MDD 30mg PRN (Reason: pain) Qty: 84 0RF cholecalciferol (vitamin D3) [Vitamin D3] 25 mcg (1,000 unit) capsule 1,000 unit PO DAILY Rx Instructions: Trial TWICE day x 1 month, Vitamin D supplement Discharge Instructions Instructions: Abrasion (ED), Skin Adhesive Care (ED) Additional Instructions: Please follow-up with primary care provider or dermatology to rule out serious skin lesions such as melanoma or similar. The Dermabond will start to slough off on its own in approximately 4 to 6 days. Do not pick at or scrub the area. Follow up with primary care provider in 3-5 days. Return to ED sooner if any worsening or concerns. Increase oral fluids. Referrals: Lorie Holliday DO [Primary Care Provider] - 5 days Medical Decision Making 67-year-old male presents to the ER with a chief complaint of bleeding lesion to the right cheek which occurred this morning. Patient reports that he brushed it with a towel after getting out of shower and had some bleeding. Bleeding is controlled upon arrival at stop just before arrival. No other complaints no headache no pain. He reports that his had this lesion there for a while however his has noticed it getting more red over the last 4 to 6 weeks. He does have a past medical history of cataracts, diabetes mellitus, GERD, hepatitis C, hyperlipidemia hypothyroidism. Small amount of dermabond tissue adhesive applied to prevent further bleeding. Instructed patient to follow-up with PCP and/or dermatology for further eval due to changing new bleeding lesion on the face. Differential diagnosis includes but not limited to bleeding Capillary, melanoma or other type of lesion. Follow up with primary care provider in 3-5 days. Return to ED sooner if any worsening or concerns. Increase oral fluids. HPI General Mode of arrival: ambulatory . Date/Time Provider Initiated Documentation: 04/30/23 10:06 . Limitations to Documentation: no limitations . Information obtained by: patient, RN notes reviewed and old records reviewed . HPI Narrative: 67-year-old male presents to the ER with a chief complaint of bleeding lesion to the right cheek which occurred this morning. Patient reports that he brushed it with a towel after getting out of shower and had some bleeding. Bleeding is controlled upon arrival at stop just before arrival. No other complaints no he adache no pain. He reports that his had this lesion there for a while however his has noticed it getting more red over the last 4 to 6 weeks. He does have a past medical history of cataracts, diabetes mellitus, GERD, hepatitis C, hyperlipidemia hypothyroidism. Related Data Home Medications Medication Instructions Recorded Confirmed lancets 33 gauge (MobissimoO[employer] Robert #90 ea 01/07/19 04/30/23 Lancets) ibuprofen 600 mg tablet 600 mg PO Q8H PRN inflammation and 12/18/20 04/30/23 arthritic pain #30 tabs [employer] Fish Oil 1 cap PO DAILY #90 caps 02/20/22 04/30/23 albuterol sulfate 90 mcg/actuation 2 puff inhalation Q6H PRN 03/09/22 04/30/23 aerosol inhaler (ProAir HFA) shortness of breath or wheezing #8.5 grams cholecalciferol (vitamin D3) 25 1,000 unit PO DAILY 04/02/22 04/30/23 mcg (1,000 unit) capsule (Vitamin D3) omeprazole 20 mg capsule,delayed 20 mg PO DAILY #90 caps 06/08/22 04/30/23 release clonidine HCl 0.1 mg tablet 0.1 mg PO BID #180 tab-caps 08/07/22 04/30/23 levothyroxine 75 mcg tablet 75 mcg PO DAILY #90 tab-caps 01/11/23 04/30/23 atorvastatin 20 mg tablet 20 mg PO DAILY #90 tabs 01/16/23 04/30/23 epinephrine 0.3 mg/0.3 mL 0.3 mg (0.3 mL) IM ONCE #2 ea 02/11/23 04/30/23 injection, auto-injector (EpiPen 2-Philip) blood sugar diagnostic ([employer] #90 strips 02/22/23 04/30/23 Verio test strips) lorazepam 1 mg tablet (Ativan) 1 mg PO QHS PRN anticipatory 03/20/23 04/30/23 anxiety #10 tabs methadone 10 mg tablet 10 mg PO BID chronic pain #56 tabs 04/05/23 04/30/23 oxycodone 10 mg tablet 15 mg PO BID PRN pain #84 tabs 04/05/23 04/30/23 Previous Rx's Medication Instructions Recorded lancets 33 gauge (MobissimoTouch Delica #90 ea 01/07/19 Lancets) ibuprofen 600 mg tablet 600 mg PO Q8H PRN inflammation and 12/18/20 arthritic pain #30 tabs [employer] Fish Oil 1 cap PO DAILY #90 caps 02/20/22 albuterol sulfate 90 mcg/actuation 2 puff inhalation Q6H PRN 03/09/22 aerosol inhaler (ProAir HFA) shortness of breath or wheezing #8.5 grams omeprazole 20 mg capsule,delayed 20 mg PO DAILY #90 caps 06/08/22 release clonidine HCl 0.1 mg tablet 0.1 mg PO BID #180 tab-caps 08/07/22 levothyroxine 75 mcg tablet 75 mcg PO DAILY #90 tab-caps 01/11/23 atorvastatin 20 mg tablet 20 mg PO DAILY #90 tabs 01/16/23 epinephrine 0.3 mg/0.3 mL 0.3 mg (0.3 mL) IM ONCE #2 ea 02/11/23 injection, auto-injector (EpiPen 2-Philip) blood sugar diagnostic (OneTouch #90 strips 02/22/23 Verio test strips) lorazepam 1 mg tablet (Ativan) 1 mg PO QHS PRN anticipatory 03/20/23 anxiety #10 tabs methadone 10 mg tablet 10 mg PO BID chronic pain #56 tabs 04/05/23 oxycodone 10 mg tablet 15 mg PO BID PRN pain #84 tabs 04/05/23 Allergies Allergy/AdvReac Type Severity Reaction Status Date / Time bee venom protein (honey bee) Allergy Severe Anaphylaxis Verified 04/30/23 10:17 escitalopram oxalate AdvReac Intermediate palpitation Verified 04/30/23 10:17 [From Lexapro] s paroxetine AdvReac Intermediate DIZZINESS Verified 04/30/23 10:17 BETTE Inhibitors AdvReac Verified 04/30/23 10:17 yellow and white hornet, wasp Allergy Severe anaphylaxis Uncoded 04/30/23 10:17 yellow jacke Allergy Severe Anaphylaxsi Uncoded 04/30/23 10:17 s beta blockers AdvReac Uncoded 04/30/23 10:17 General Stated Complaint: Laceration BRI: 4 Review of Systems Integumentary/Breasts Skin/Breast: Reports as per HPI, Reports changing lesions and Reports wounds PFSH All Active Problems (Updated 04/30/23 @ 10:36 by Mayuri Gonzales NP) Lesion of skin of face (Acute) Near syncope (Acute) Pain, foot (Acute) Corns and callosities (Acute) Foot pain, bilateral (Acute) Corns? Health care maintenance (Acute) Cough (Acute) Anticipatory anxiety (Acute) Sensorineural hearing loss, asymmetrical (Acute) Sensorineural hearing loss (Acute) Actinic keratitis (Acute) Family history of prostate cancer (Acute) BPH w urinary obs/LUTS (Acute) Wheal (Acute) Edema (Acute) Skin rash (Acute) Varicella zoster (Acute) 04/05/22 Dr Quinones Tingarett unguium (Acute) Hx of steroid therapy (Acute) SOB (shortness of breath) (Acute) with mild exertion or conversation, [place] At high risk for osteoporosis (Acute) Encounter for screening for lung cancer (Acute 09/06/17) screen begun 10/2015; stopped smoking 2005: complete screen 10/2021. FOCAL CHANGES IDENTIFIED 11/21/17, so CT(chest) w/ contrast requested. Ordering screening CT (chest) 02/05/19. Lung nodule < 6cm on CT (Acute) following with CCT .. no change, 2021.. Hx of smoking (Chronic) Lung Screening, 2017, 2018 ((31 yrs))((quit 2005)) Essential hypertension (Chronic 03/01/17) High BPs w/o clonidine .. monitor & review for possible med changes as clonidine is not primary Rx. (06/2019) Hymenoptera allergy (Acute) New finding, anaphlxs 06/2019! 's Epipen saved him. Patent foramen ovale (Chronic 11/13/11) dr ROBLES CARDIOL [facility]; No prophylactic antibiotics indicated 04/2014 normal nucl perf scan 04/20/[address] Robles.. No myocardial perf defects, LVSyt Function normal w/ EF 69%. chest discomfort noncardiac in origin .. Anemia (Acute) Allergic reaction to insect sting (Acute) Insect sting anaphylaxis. Trigger finger, left middle finger (Acute) Depo-medrol injection: 12/07/2022; 08/03/2021 Desensitization to allergens (Acute) Per [facility] Allergy note from 08/30/21 Hand joint pain (Acute) IMPROVED with Orhto/Injection. 08/2021. Acute on chronic, worsened. Swollen and stiff .. significant effort needed to open/close hand/grasp. Snapping of middle fingers, B/L (trigger finger?). Altered urinary elimination pattern (Acute) Joint pain (Acute) Migraine headache with aura (Chronic) saw Neuro (03/2019). Note: No imagin from [place], [ ] Open MRI (w/o) if H/A persist. Hx chronic neck and back pain with opiate dependence, p/w increased headaches. D/C sumatriptan, advil -- use rizatriptan 10 mg as needed. He should not use more than 2 in a 24-hour period and no more than 4 in a 1 week period. Vitamin D deficiency (Chronic 03/20/13) level said to be <10, Dr Kim (RHEUM) . Remains low (2017), retesting, 02/2019 [ ] Steatohepatitis, non-alcoholic (Chronic 11/13/11) [facility] Bx 05/14 (fatty liver, 2018, per imaging?). AST/ALT WNL, 2020.. Imaging q 3 yrs? 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 Hx Pain Clinic ([facility]), Hx weaning off opioids, Methadone re- started with good results. Oxycod provided for break-through pain, wean more difficult over . Reconsidering Methadone as 1' and Oxycod decrease, 11/2018. Bilateral low back pain without sciatica (Chronic 11/03/90) chronic injured ; spinal cord implanted stimulator 2003 Neck pain of over 3 months duration (Chronic 11/13/11) Ortho: Dr. Nieto, [facility]. Long Hx .. seing chiro with some relief (less intense, but twinges/shooting pain remain) .. no clear etiology; roled up towel helps. Left sided sciatica (Chronic 07/05/17) s/p Surgery with mixed results including expected pain for life .. 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 Currently not sleeping due to lower back/sciatica pain. 11/2018 [ ] Neurology to help localize sciatic pain as oxycod helps him function at work, post piriformis release surgery. Hypothyroidism (Chronic 12/02/12) ABNL TSH 07/2012 Hypertriglyceridemia (Chronic 11/13/11) very high TG; diabetic level FBS 12/13 Hyperlipidemia (Chronic 11/13/11) high TG, risk 16%-smoker (d/c); goal LDL<130; 01/2016 CV risk 12.6% Hearing loss (Chronic 11/13/11) left ear Gastroesophageal reflux disease without esophagitis (Chronic 11/13/11) mild gastritis on EGD 04/12 Cataract, congenital (Chronic 11/13/11) congenital Adjustment disorder, unspecified (Acute 11/06/16) Adenomatous polyp of colon (Chronic 11/11/15) Dr Demian Hines 2014, [facility] 2020 Medical History Cataracts, bilateral Chronic neck and back pain Chronic, continuous use of opioids Deafness in L ear Deafness in left ear Diabetes mellitus Per A1C 6.5 measured in 2020 and 2017.. since resolved/managed with diet, IMPROVED to PREDIABETES LEVELs. GERD (gastroesophageal reflux disease) Hepatitis C Impaired fasting glucose (09/06/17) Per 2019 fasting labs .. NOW CTLLD, 02/2022. Long Hx, Pre-diabetes monitoring ... BG levels 95 - 132 with usual higher numbers post ice-cream night before. A1C improved (6.1) from 01/2018 (6.5). Nail lesion rt toe ... foreign object vs melanoma (?) Patent foramen ovale Primary osteoarthritis of right knee Synvisc injection: 05/11/2019 Surgical History Arthroplasty of knee (06/27/11) COLONOSCOPY (09/2021) 2014, 2020 Removal spinal cord stimulator and generator (04/16/18) Trigger Finger release (08/30/15) Right ring finger. Dr. Holloway Family History Mother , heart at age 87. Diabetes Father , CVA at age 81. Stroke Sister Age: 68 Personal history of malignant neoplasm breast, thyroid Brother Age: 70 Personal history of malignant neoplasm Brother No problems noted. Brother No problems noted. 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 Small purple raised lesion. Bleeding controlled at this time Course Vital Signs Vital signs: Vital Signs Temperature 36.4 C L 04/30/23 10:15 Pulse 74 04/30/23 10:15 Respiratory Rate 18 04/30/23 10:15 Blood Pressure 134/72 04/30/23 10:15 Pulse Oximetry 98 04/30/23 10:15 Temperature 36.4 C L 04/30/23 10:15 Temperature Source Skin 04/30/23 10:15 Pulse 74 04/30/23 10:15 Respiratory Rate 18 04/30/23 10:15 Respiratory Effort Normal 04/30/23 10:18 Blood Pressure 134/72 04/30/23 10:15 Blood Pressure Position Sitting 04/30/23 10:15 Pulse Oximetry 98 04/30/23 10:15 Oxygen Delivery Method Room Air 04/30/23 10:15 Oxygen Flow Rate 0 04/30/23 10:15 Pain Level 0 04/30/23 10:15
== END 2023-04-30 11:11 | disposition home or self-care (01) ==
PROVIDERS: Emergency Provider Registered Nurse Emergency; PCP Student in an Organized Health Care Education/Training Program
DX: L98.9 Disorder of the skin and subcutaneous tissue, unspecified (principal)
CPT/HCPCS: 99282

== ENCOUNTER 2023-05-10 01:15 | Outpatient (CLI) | payer MEDICARE, SELFPAY ==
--- NOTE | 2023-05-10 06:45 | DI.US_ITS ---
Exam(s) US AAA SCREENING EXAM: US AAA SCREENING CLINICAL HISTORY: evaluate for AAA, , screening, hepatic disease COMPARISON: No exams were available for comparison FINDINGS: Abdominal Aorta: Proximal: 2.1 cm Mid: 2.1 cm Distal: 1.8 cm Iliacs: Right: 1.3 cm Left: 1.3 cm Atherosclerotic calcifications noted along wall of aorta and iliac arteries. IMPRESSION: No evidence of abdominal aortic aneurysm. Atherosclerotic changes. DATA REPOSITORY:
--- NOTE | 2023-05-10 06:47 | DI.US_ITS ---
Exam(s) US ABDOMEN LIMITED EXAM: US ABDOMEN LIMITED CLINICAL HISTORY: Evaluate for fatty liver; Hx Hep C, Z13.6, Z87.19, Z87.891 TECHNIQUE: Ultrasound abdomen performed using standard protocol. COMPARISON: CT CT CHEST LUNG CANCER SCREEN from 01/24/2023 FINDINGS: LIVER: Normal size. Markedly increasedechogenicity decreased through transmission, consistent with s evere hepatic steatosis. Port posterior portions of the liver are not well visualized. No focal live r lesions are visible. (The majority of the liver was included on the prior chest CT for lung cancer screening and no focal lesions were seen). GALLBLADDER: No evidence of cholelithiasis. No evidence of wall thickening. No pericholecystic fluid identified. GARCIA'S SIGN: Negative. BILIARY SYSTEM: No intrahepatic or extrahepatic biliary ductal dilation. RIGHT KIDNEY: Normal size. No evidence of renal calculi. No evidence of hydronephrosis. No suspicious renal mass. No cyst identified. PANCREAS: Normal where visualized. ABDOMINAL AORTA AND IVC: Visualized portions normal caliber. ASCITES: None seen. IMPRESSION: Severe hepatic steatosis. Posterior portions of the liver not well visualized. No focal lesions are identified. No biliary dilatation or cholelithiasis. DATA REPOSITORY:
== END 2023-05-10 01:35 ==
LOC: DI 01:16
PROVIDERS: PCP Student in an Organized Health Care Education/Training Program; Visit Provider Student in an Organized Health Care Education/Training Program
DX: Z13.6 Encounter for screening for cardiovascular disorders (principal); Z87.19 Personal history of other diseases of the digestive system; Z87.891 Personal history of nicotine dependence; K76.0 Fatty (change of) liver, not elsewhere classified
CPT/HCPCS: 76706; 76705

== ENCOUNTER 2023-05-28 02:04 | Outpatient (CLI) | payer MEDICARE, SELFPAY ==
--- NOTE | 2023-05-28 07:00 | DI.US_ITS ---
Exam(s) US CAROTID EXAM: US CAROTID CLINICAL HISTORY: evaluate for stenosis; near syncope,smoker,h/o tia,r55,z13.6. TECHNIQUE: Ultrasound carotids performed using grayscale, color-flow, and spectral Doppler imaging. COMPARISON: US US ABDOMEN LIMITED from 05/10/2023 FINDINGS: CAROTID ARTERIES: There is significant plaque bilaterally at the level the carotid bulbs and proximal ICAs, appearing b oth noncalcified and calcified. Velocities are within normal limits but ICA/CCA PSV ratio on the right side is 2.3, consistent with s tenosis of 50-69 percent. Similar ratio on the opposite-left side is 1.9, consistent with less than 50 percent stenosis. VERTEBRAL ARTERIES: Antegrade flow was demonstrated in both vertebral arteries. Measurements: R Bulb: 47.8cm/s PS / 14.1cm/s ED R CCA: 47.8cm/s PS / 12.8cm/s ED R ECA: 65.4cm/s PS / 10.1cm/s ED R ICA Prox: 80.4cm/s PS / 23.7cm/s ED R ICA Mid: 106.5cm/s PS / 34.6cm/s ED R ICA Distal: 112cm/s PS /38.6cm/s ED R Vert: 51.3cm/s PS / 18.2cm/s ED R SVR: 2.3 R DVR: 3 L Bulb: 53.2cm/s PS / 10.8cm/s ED L CCA: 52cm/s PS / 15.6cm/s ED L ECA: 85.1cm/s PS / 8.9cm/s ED L ICA Prox: 66cm/s PS / 25.6cm/s ED L ICA Mid: 96.6cm/s PS / 24.5cm/s ED L ICA Distal: 85.2cm/s PS / 30.2cm/s ED L Vert: 42.6cm/s PS / 17cm/s ED L SVR: 1.9 L DVR: 1.6 IMPRESSION: Moderate plaque bilaterally at the carotid bulbs-proximal ICAs, slightly more so on the right side wi th estimated stenosis on the right of 50-69 percent. Estimated stenosis on the left side is less smitha n 50 percent. Antegrade flow was demonstrated in both vertebral arteries. Criteria for Carotid Stenosis: Normal: ICA PSV <125 cm/s no plaque or intimal thickening is visible. <50% stenosis: ICA PSV <125 cm/s and plaque or intimal thickening is visible. 50-69% stenosis: ICA PSV is 125-250 cm/s and plaque is visible. >70% stenosis to near occlusion: ICA PSV >250 cm/s with visible plaque and luminal narrowing. DATA REPOSITORY:
== END 2023-05-28 02:24 ==
LOC: DI 02:04
PROVIDERS: PCP Student in an Organized Health Care Education/Training Program; Visit Provider Student in an Organized Health Care Education/Training Program
DX: Z13.6 Encounter for screening for cardiovascular disorders (principal); Z87.891 Personal history of nicotine dependence; R55 Syncope and collapse; Z86.73 Personal history of transient ischemic attack (TIA), and cerebral infarction without residual deficits; E11.9 Type 2 diabetes mellitus without complications; I65.23 Occlusion and stenosis of bilateral carotid arteries
CPT/HCPCS: 93880

== ENCOUNTER 2023-06-05 11:08 | Emergency (ER) | payer MEDICARE, SELFPAY ==
[2023-06-05 11:13] VITALS: BP 152/75; PULSE 68; RESP 16; TEMP 36.7; O2SAT 100
== END 2023-06-05 12:44 | disposition left against medical advice (07) ==
LOC: ER 11:20
PROVIDERS: PCP Student in an Organized Health Care Education/Training Program
DX: Z53.21 Procedure and treatment not carried out due to patient leaving prior to being seen by health care provider (principal)

== ENCOUNTER 2023-06-06 08:16 | Emergency (ER) | payer MEDICARE, SELFPAY ==
[2023-06-06 08:19] VITALS: BP 161/96; PULSE 82; RESP 16; TEMP 36.8; O2SAT 98
[2023-06-06] MEDS: Doxycycline Hyclate 100 MG CAP PO (08:44)
[2023-06-06 08:58] LABS: Abs Immature Grans 0.02 10^3/uL (0.0-0.06); Absolute Basophil Count 0.02 10^3/uL (0.0-0.2); Absolute Eosinophil Count 0.02 10^3/uL (0.0-0.7); Basophils % 0.3; Eosinophils % 0.3; HCT 41.7 % (40.0-50.0); HGB 14.3 g/dL (13.5-17.5); Immature Grans % 0.3; Lymphocytes % 23.2; MCH 30.1 pg (27.0-33.0); MCHC 34.3 % (32.0-36.0); MCV 88 fL (80-95); Monocytes % 10.3; Neutrophils % 65.6; Platelet Count 208 10^3/uL (130-400); RBC 4.75 10^6/uL (4.36-5.78); RDW-SD 38.6 fL; WBC 7.76 10^3/uL (4.4-10.8)
--- NOTE | 2023-06-06 09:07 | W.ED.GENAD ---
Discharge Plan Disposition Patient Disposition: Home Discharge Details Clinical Impression: Erythema migrans (Lyme disease) Primary Care Provider: Lorie Holliday ED Provider: Michelle Veloz Home Meds and New Rx's Prescriptions: New doxycycline hyclate 100 mg capsule 100 mg PO BID Qty: 20 0RF Continued lorazepam [Ativan] 1 mg tablet 1 mg PO QHS PRN (Reason: anticipatory anxiety) Qty: 10 0RF Rx Instructions: Use for travel (DME) lancets [OneTouch Delica Lancets] 33 gauge misc 1 ea Miscellaneous DAILY Qty: 90 3RF Rx Instructions: diabetes, check daily to keep A1C < 7.5 ibuprofen 600 mg tablet 600 mg PO Q8H PRN (Reason: inflammation and arthritic pain) Qty: 30 1RF Frederika [place] Fish Oil 1 cap PO DAILY Qty: 90 0RF albuterol sulfate [ProAir HFA] 90 mcg/actuation HFA aerosol inhaler 2 puff inhalation Q6H PRN (Reason: shortness of breath or wheezing) Qty: 8.5 1RF Patient Comments: Pt no longer uses 8/3/23 ML Rx Instructions: Trial daily for shortness of breath; use with spacer (from ZANE) clonidine HCl 0.1 mg tablet 0.1 mg PO BID Qty: 180 3RF Rx Instructions: for help with methadone taper and BP levothyroxine 75 mcg tablet 75 mcg PO DAILY Qty: 90 3RF atorvastatin 20 mg tablet 20 mg PO DAILY Qty: 90 3RF epinephrine [EpiPen 2-Philip] 0.3 mg/0.3 mL auto-injector 0.3 mg IM ONCE Qty: 2 2RF (DME) NormalTouch Verio test strips Strip 1 ea Miscellaneous DAILY Qty: 90 3RF Rx Instructions: Daily BG testing for Diabetes, to keep A1C < 7 TEST DAILY e11.9 methadone 10 mg tablet 10 mg PO BID MDD 20 mg Qty: 56 0RF oxycodone 10 mg tablet 15 mg PO BID MDD 30mg PRN (Reason: pain) Qty: 84 0RF omeprazole 20 mg capsule,delayed release(DR/EC) 20 mg PO DAILY Qty: 90 3RF cholecalciferol (vitamin D3) [Vitamin D3] 25 mcg (1,000 unit) capsule 1,000 unit PO DAILY Rx Instructions: Trial TWICE day x 1 month, Vitamin D supplement Discharge Instructions Instructions: Cellulitis (ED) Additional Instructions: I suspect he may have Lyme disease and this is an erythema migrans rash, pending tick panel at this time He was started on doxycycline which will cover you for both cellulitis and tickborne illness, he advised that this will likely worsen slightly before it improves Should you develop fever, chills, or with significant spread, greater than several inches, I do recommend urgent reassessment It will likely take antibiotics 2 to 3 days to become therapeutic and you will not likely notice an effect until this time Please be reassessed in 48 to 72 hours by her primary care physician Referrals: Lorie Holliday DO [Primary Care Provider] - Medical Decision Making 67-year-old male presents with rash. Thigh for the past 5 days, afebrile, nontoxic, suspect erythema migrans rash, labs are unremarkable, tick panel pending We will start on doxycycline empirically, wound was traced Return precautions reviewed and patient expressed understanding recheck in 48 hours recommended HPI General Date/Time Provider Initiated Documentation: 06/06/23 08:25. HPI Narrative: This 59-year-old gentleman with history of peripheral artery disease, hyperlipidemia, diabetes presents with report of rash to right upper thigh, this is been waxing and waning for the past 5 days, denies known tick bites. Denies any fever or chills, states he has some mild aching to the affected area, he denies any arthralgias or fever. Related Data Home Medications Medication Instructions Recorded Confirmed lancets 33 gauge (OneTouch Delica #90 ea 01/07/19 06/06/23 Lancets) ibuprofen 600 mg tablet 600 mg PO Q8H PRN inflammation and 12/18/20 06/06/23 arthritic pain #30 tabs Frederika [place] Fish Oil 1 cap PO DAILY #90 caps 02/20/22 06/06/23 albuterol sulfate 90 mcg/actuation 2 puff inhalation Q6H PRN 03/09/22 04/30/23 aerosol inhaler (ProAir HFA) shortness of breath or wheezing #8.5 grams cholecalciferol (vitamin D3) 25 1,000 unit PO DAILY 04/02/22 06/06/23 mcg (1,000 unit) capsule (Vitamin D3) clonidine HCl 0.1 mg tablet 0.1 mg PO BID #180 tab-caps 10/04/22 08/03/23 levothyroxine 75 mcg tablet 75 mcg PO DAILY #90 tab-caps 01/11/23 06/06/23 atorvastatin 20 mg tablet 20 mg PO DAILY #90 tabs 01/16/23 06/06/23 epinephrine 0.3 mg/0.3 mL 0.3 mg (0.3 mL) IM ONCE #2 ea 02/11/23 06/06/23 injection, auto-injector (EpiPen 2-Philip) blood sugar diagnostic (OneTouch #90 strips 02/22/23 06/06/23 Verio test strips) lorazepam 1 mg tablet (Ativan) 1 mg PO QHS PRN anticipatory 03/20/23 06/06/23 anxiety #10 tabs methadone 10 mg tablet 10 mg PO BID chronic pain #56 tabs 04/05/23 06/06/23 oxycodone 10 mg tablet 15 mg PO BID PRN pain #84 tabs 04/05/23 06/06/23 omeprazole 20 mg capsule,delayed 20 mg PO DAILY #90 caps 05/24/23 06/06/23 release doxycycline hyclate 100 mg capsule 100 mg PO BID #20 caps 06/06/23 Previous Rx's Medication Instructions Recorded lancets 33 gauge ([facility] 01/07/19 Lancets) ibuprofen 600 mg tablet 600 mg PO Q8H PRN inflammation and 12/18/20 arthritic pain #30 tabs Frederika [place] Fish Oil 1 cap PO DAILY #90 caps 02/20/22 albuterol sulfate 90 mcg/actuation 2 puff inhalation Q6H PRN 03/09/22 aerosol inhaler (ProAir HFA) shortness of breath or wheezing #8.5 grams clonidine HCl 0.1 mg tablet 0.1 mg PO BID #180 tab-caps 08/07/22 levothyroxine 75 mcg tablet 75 mcg PO DAILY #90 tab-caps 01/11/23 atorvastatin 20 mg tablet 20 mg PO DAILY #90 tabs 01/16/23 epinephrine 0.3 mg/0.3 mL 0.3 mg (0.3 mL) IM ONCE #2 ea 02/11/23 injection, auto-injector (EpiPen 2-Philip) blood sugar diagnostic (NormalTouch #90 strips 04/21/23 Verio test strips) lorazepam 1 mg tablet (Ativan) 1 mg PO QHS PRN anticipatory 03/20/23 anxiety #10 tabs methadone 10 mg tablet 10 mg PO BID chronic pain #56 tabs 04/05/23 oxycodone 10 mg tablet 15 mg PO BID PRN pain #84 tabs 04/05/23 omeprazole 20 mg capsule,delayed 20 mg PO DAILY #90 caps 05/24/23 release doxycycline hyclate 100 mg capsule 100 mg PO BID #20 caps 06/06/23 Allergies Allergy/AdvReac Type Severity Reaction Status Date / Time bee venom protein (honey bee) Allergy Severe Anaphylaxis Verified 06/06/23 08:29 escitalopram oxalate AdvReac Intermediate palpitation Verified 06/06/23 08:29 [From Lexapro] s paroxetine AdvReac Intermediate DIZZINESS Verified 06/06/23 08:29 BETTE Inhibitors AdvReac Verified 06/06/23 08:29 yellow and white hornet, wasp Allergy Severe anaphylaxis Uncoded 06/06/23 08:29 yellow jacke Allergy Severe Anaphylaxsi Uncoded 06/06/23 08:29 s beta blockers AdvReac Uncoded 06/06/23 08:29 General Stated Complaint: Cellulitis BRI: 3 PFSH All Active Problems (Updated 06/06/23 @ 09:13 by YUSEF Devine) Erythema migrans (Lyme disease) (Acute) Carotid stenosis, left (Acute) < 50% per US, 05/2023 Carotid stenosis, right (Acute) Rt, 50-69% .. [ ] mra Near syncope (Acute) Pain, foot (Acute) Corns and callosities (Acute) Foot pain, bilateral (Acute) Corns? Health care maintenance (Acute) Cough (Acute) Anticipatory anxiety (Acute) Sensorineural hearing loss, asymmetrical (Acute) Sensorineural hearing loss (Acute) Actinic keratitis (Acute) Family history of prostate cancer (Acute) BPH w urinary obs/LUTS (Acute) Wheal (Acute) Edema (Acute) Skin rash (Acute) Varicella zoster (Acute) 04/05/22 Dr Quinones Tinea unguium (Acute) Hx of steroid therapy (Acute) SOB (shortness of breath) (Acute) with mild exertion or conversation, NEW ONSET At high risk for osteoporosis (Acute) Encounter for screening for lung cancer (Acute 09/06/17) screen begun 10/2015; stopped smoking 2005: complete screen 10/2021. FOCAL CHANGES IDENTIFIED 11/21/17, so CT(chest) w/ contrast requested. Ordering screening CT (chest) 02/05/19. Lung nodule < 6cm on CT (Acute) following with CCT .. no change, 2021.. Hx of smoking (Chronic) Lung Screening, 2017, 2018 ((31 yrs))((quit 2005)) Essential hypertension (Chronic 03/01/17) High BPs w/o clonidine .. monitor & review for possible med changes as clonidine is not primary Rx. (06/2019) Hymenoptera allergy (Acute) New finding, anaphlxs 06/2019! 's Epipen saved him. Patent foramen ovale (Chronic 11/13/11) dr ROBLES CARDIOL FA; No prophylactic antibiotics indicated 04/2014 normal nucl perf scan 04/20/[address] Robles.. No myocardial perf defects, LVSyt Function normal w/ EF 69%. chest discomfort noncardiac in origin .. Anemia (Acute) Allergic reaction to insect sting (Acute) Insect sting anaphylaxis. Trigger finger, left middle finger (Acute) Depo-medrol injection: 12/07/2022; 08/03/2021 Desensitization to allergens (Acute) [place] [facility] [place] note from 08/30/21 Hand joint pain (Acute) IMPROVED with Orhto/Injection. 08/2021. Acute on chronic, worsened. Swollen and stiff .. significant effort needed to open/close hand/grasp. Snapping of middle fingers, B/L (trigger finger?). Altered urinary elimination pattern (Acute) Joint pain (Acute) Migraine headache with aura (Chronic) saw Neuro (03/2019). Note: No imagin from [place], [ ] Open MRI (w/o) if H/A persist. Hx chronic neck and back pain with opiate dependence, p/w increased headaches. D/C sumatriptan, advil -- use rizatriptan 10 mg as needed. He should not use more than 2 in a 24-hour period and no more than 4 in a 1 week period. Vitamin D deficiency (Chronic 03/20/13) level said to be <10, Dr Kim (RHEUM) . Remains low (2017), retesting, 02/2019 [ ] Steatohepatitis, non-alcoholic (Chronic 11/13/11) [facility] Bx 05/14 (fatty liver, 2018, per imaging?). AST/ALT WNL, 2020.. Imaging q 3 yrs? 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 Hx Pain Clinic ([facility] [place]), Hx weaning off opioids, Methadone re-started with good results. Oxycod provided for break-through pain, wean more difficult over . Reconsidering Methadone as 1' and Oxycod decrease, 11/2018. Bilateral low back pain without sciatica (Chronic 11/03/90) chronic injured ; spinal cord implanted stimulator 2003 Neck pain of over 3 months duration (Chronic 11/13/11) Ortho: Dr. Nieto, [facility]. Long Hx .. seing chiro with some relief (less intense, but twinges/shooting pain remain) .. no clear etiology; roled up towel helps. Left sided sciatica (Chronic 07/05/17) s/p Surgery with mixed results including expected pain for life .. 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 Currently not sleeping due to lower back/sciatica pain. 11/2018 [ ] Neurology to help localize sciatic pain as oxycod helps him function at work, post piriformis release surgery. Hypothyroidism (Chronic 12/02/12) ABNL TSH 07/2012 Hypertriglyceridemia (Chronic 11/13/11) very high TG; diabetic level FBS 12/13 Hyperlipidemia (Chronic 11/13/11) high TG, risk 16%-smoker (d/c); goal LDL<130; 01/2016 CV risk 12.6% Hearing loss (Chronic 11/13/11) left ear Gastroesophageal reflux disease without esophagitis (Chronic 11/13/11) mild gastritis on EGD 04/12 Cataract, congenital (Chronic 11/13/11) congenital Adjustment disorder, unspecified (Acute 11/06/16) Adenomatous polyp of colon (Chronic 11/11/15) Dr Demian Hines 2014, [facility] 2020 Medical History Cataracts, bilateral Chronic neck and back pain Chronic, continuous use of opioids Deafness in L ear Deafness in left ear Diabetes mellitus Per A1C 6.5 measured in 2020 and 2017.. since resolved/managed with diet, IMPROVED to PREDIABETES LEVELs. GERD (gastroesophageal reflux disease) Hepatitis C Impaired fasting glucose (09/06/17) Per 2019 fasting labs .. NOW CTLLD, 02/2022. Long Hx, Pre-diabetes monitoring ... BG levels 95 - 132 with usual higher numbers post ice-cream night before. A1C improved (6.1) from 01/2018 (6.5). Nail lesion rt toe ... foreign object vs melanoma (?) Patent foramen ovale Primary osteoarthritis of right knee Synvisc injection: 05/11/2019 Surgical History Arthroplasty of knee (06/27/11) COLONOSCOPY (09/2021) 2020 Removal spinal cord stimulator and generator (04/16/18) Trigger Finger release (08/30/15) Right ring finger. Dr. Holloway Family History Mother , heart at age 87. Diabetes Father , CVA at age 81. Stroke Sister Age: 68 Personal history of malignant neoplasm breast, thyroid Brother Age: 71 Personal history of malignant neoplasm Brother No problems noted. Brother No problems noted. 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 - [employer] Current gender identity: male What type of physical activity do you participate in: walking Seatbelt use: always Drive intox or ride w/intox sulky driver: No Working smoke detector in home: Yes Fire extinguisher in home: Yes Carbon monox detector in home: Yes Do you feel safe at home: Yes Do you feel safe in your relationship?: Yes Course Vital Signs Vital signs: Vital Signs Temperature 36.8 C 06/06/23 08:19 Pulse 82 06/06/23 08:19 Respiratory Rate 16 06/06/23 08:19 Blood Pressure 161/96 H 06/06/23 08:19 Pulse Oximetry 98 06/06/23 08:19 Temperature 36.8 C 06/06/23 08:19 Temperature Source Oral 06/06/23 08:19 Pulse 82 06/06/23 08:19 Respiratory Rate 16 06/06/23 08:19 Respiratory Effort Normal, Non-Labored 06/06/23 08:25 Blood Pressure 161/96 H 06/06/23 08:19 Pulse Oximetry 98 06/06/23 08:19 Pain Level 3 06/06/23 08:19 Lab/Test Results Lab/Test Results: Laboratory Tests Range/Units 06/06/23 08:46 WBC (4.4-10.8) 10^3/uL 7.76 RBC (4.36-5.78) 10^6/uL 4.75 Hgb (13.5-17.5) g/dL 14.3 Hct (40.0-50.0) % 41.7 MCV (80-95) fL 88 MCH (27.0-33.0) pg 30.1 MCHC (32.0-36.0) % 34.3 RDW (11.8-14.1) % 12.0 Plt Count (130-400) 10^3/uL 208 MPV (8.0-11.0) fL 10.0 Immature Gran % 0.3 Neutrophils % 65.6 Lymphocytes % 23.2 Monocytes % 10.3 Eosinophils % 0.3 Basophils % 0.3 Nucleated RBC % (0.0-0.3) % 0.0 Absolute Neutrophils (1.2-6.7) 10^3/uL 5.10 Absolute Lymphocytes (1.2-3.4) 10^3/uL 1.80 Absolute Monocytes (0.1-0.8) 10^3/uL 0.80 Absolute Eosinophils (0.0-0.7) 10^3/uL 0.02 Absolute Basophils (0.0-0.2) 10^3/uL 0.02 PAWSS Have you Been Recently Intoxicated or Drunk Within the Last 30 days?: No Have you Ever Experienced Previous Episodes of Alcohol Withdrawal?: No Have you ever Experienced Withdrawal Seizures?: No Have you ever Experienced Delirium Tremens(DT)s?: No Have you ever undergone Alcohol Rehabilitation Treatment (i.e, inpt ot outpatient treatment programs)?: No Have you ever Experienced Blackouts?: No Have you ever Combined Alcohol with other Downers within the last 90 days?: No Have you ever Combined Alcohol with any other Substance of Abuse during the last 90 days?: No Positive Blood Alcohol level on Presentation? [PCS.BAL]: No Evidence of Increased Autonomic Activity (i.e. HR>120, tremor, sweating, agitation, nausea)?: No Result: 0
[2023-06-06 09:08] LABS: ALT 47 U/L (16-63); AST 30 U/L (15-37); Albumin 3.7 g/dL (3.4-5.0); Alkaline Phosphatase 77 U/L (46-116); Anion Gap 8.8 mmol/L (3-11); BUN 12 mg/dL (7-18); Bilirubin, Total 0.5 mg/dL (0.2-1.0); CO2 27.2 mmol/L (21.0-32.0); Calcium 9.1 mg/dL (8.5-10.1); Chloride 104 mmol/L (98-107); Estimated GFR 81.98 (mL/min/1.73m2); Glucose 139 mg/dL (74-106); Potassium 3.9 mmol/L (3.5-5.1); Sodium 140 mmol/L (136-145); Total Protein 7.4 g/dL (6.4-8.2)
[2023-06-07 11:14] LABS: Lyme Ab w Rflx to Lyme Confirm Negative (Negative)
[2023-06-08 23:45] LABS: Anaplasma phagocytophilum Negative (Negative); B. miyamotoi PCR Negative (Negative); Babesia divergens/MO-1 Negative (Negative); Babesia duncani Negative (Negative); Babesia microti Negative (Negative); Ehrlichia chaffeensis Negative (Negative); Ehrlichia ewingii/canis Negative (Negative); Ehrlichia muris eauclairensis Negative (Negative)
== END 2023-06-06 10:19 | disposition home or self-care (01) ==
PROVIDERS: Emergency Provider Physician Assistant; PCP Student in an Organized Health Care Education/Training Program
DX: A69.20 Lyme disease, unspecified (principal)
CPT/HCPCS: 80053; 87798; 99283; 85025; 86618; 99284

== ENCOUNTER 2023-07-02 03:13 | Outpatient (CLI) | payer MEDICARE, SELFPAY ==
[2023-07-02 10:17] LABS: HCT 39.4 % (40.0-50.0); HGB 13.5 g/dL (13.5-17.5); MCH 30.9 pg (27.0-33.0); MCHC 34.3 % (32.0-36.0); MCV 90 fL (80-95); MPV 10.3 fL (8.0-11.0); Platelet Count 185 10^3/uL (130-400); RBC 4.37 10^6/uL (4.36-5.78); RDW 12.3 % (11.8-14.1); RDW-SD 40.4 fL; WBC 6.22 10^3/uL (4.4-10.8)
[2023-07-02 11:40] LABS: ALT 41 U/L (16-63); AST 34 U/L (15-37); Albumin 3.4 g/dL (3.4-5.0); Alkaline Phosphatase 59 U/L (46-116); Anion Gap 7.1 mmol/L (3-11); BUN 14 mg/dL (7-18); Bilirubin, Total 0.6 mg/dL (0.2-1.0); CO2 29.9 mmol/L (21.0-32.0); Calcium 8.7 mg/dL (8.5-10.1); Calculated LDL 68 mg/dL (<100); Chloride 105 mmol/L (98-107); Cholesterol 171 mg/dL (<200); Estimated GFR 81.98 (mL/min/1.73m2); Glucose 117 mg/dL (74-106); HDL Cholesterol 63 mg/dL (40-60); Potassium 3.8 mmol/L (3.5-5.1); Sodium 142 mmol/L (136-145); TSH (W/Ref FT4) 1.59 uIU/mL (0.36-3.74); Total Protein 6.9 g/dL (6.4-8.2); Triglyceride 200 mg/dL (<150)
[2023-07-02 19:47] LABS: PSA, Screening 0.1 ng/mL (<=4.5)
[2023-07-07 17:05] LABS: Lab Add On Test DONE
[2023-07-07 17:31] LABS: Iron 88 ug/dL (65-175); Total Iron Binding Capacity 348 ug/dL (250-450); Transferrin Sat 25 % (20-55)
== END 2023-07-02 03:14 | disposition home or self-care (01) ==
LOC: LBO 03:13
PROVIDERS: PCP Student in an Organized Health Care Education/Training Program; Visit Provider Nurse Practitioner Gerontology
DX: D64.9 Anemia, unspecified (principal); I10 Essential (primary) hypertension; N40.1 Benign prostatic hyperplasia with lower urinary tract symptoms; N13.8 Other obstructive and reflux uropathy; Z12.5 Encounter for screening for malignant neoplasm of prostate; Z86.2 Personal history of diseases of the blood and blood-forming organs and certain disorders involving the immune mechanism
CPT/HCPCS: 36415; 80053; 80061; 84153; 85027; 83036; 83540; 83550; 84443

== ENCOUNTER → 2023-07-22 07:53 | Outpatient (BNVA) | payer MEDICARE, SELFPAY | PROVIDERS: PCP Student in an Organized Health Care Education/Training Program; Visit Provider Nurse Practitioner Gerontology | DX: R39.89 Other symptoms and signs involving the genitourinary system (principal); I10 Essential (primary) hypertension; Z80.42 Family history of malignant neoplasm of prostate | CPT/HCPCS: 99213 ==

== ENCOUNTER 2023-11-15 04:35 | Outpatient (CLI) | payer MEDICARE, SELFPAY ==
[2023-11-15 14:46] LABS: ALT 43 U/L (16-63); AST 34 U/L (15-37); Albumin 4.4 g/dL (3.4-5.0); Alkaline Phosphatase 67 U/L (46-116); Anion Gap 10.6 mmol/L (3-11); BUN 19 mg/dL (7-18); Bilirubin, Total 0.9 mg/dL (0.2-1.0); CO2 30.4 mmol/L (21.0-32.0); CREATININE 1.1 mg/dL (0.70-1.30); Calcium 10.3 mg/dL (8.5-10.1); Chloride 101 mmol/L (98-107); Estimated GFR 73.12 (mL/min/1.73m2); Glucose 124 mg/dL (74-106); Sodium 142 mmol/L (136-145); Total Protein 8.5 g/dL (6.4-8.2)
== END 2023-11-15 04:36 | disposition home or self-care (01) ==
LOC: LBO 04:35
PROVIDERS: PCP Student in an Organized Health Care Education/Training Program; Visit Provider Student in an Organized Health Care Education/Training Program
DX: N18.9 Chronic kidney disease, unspecified (principal); Z91.89 Other specified personal risk factors, not elsewhere classified; R73.09 Other abnormal glucose
CPT/HCPCS: 36415; 80053; 83735

== ENCOUNTER 2023-11-25 07:31 | Emergency (ER) | payer MEDICARE, SELFPAY ==
[2023-11-25] VITALS (13 sets, daily range): BP systolic 121–185; BP diastolic 67–81; PULSE 60–78; RESP 16–18; TEMP 36.5–36.7; O2SAT 96–99
--- NOTE | 2023-11-25 07:30 | RT.EKG_ITS ---
APPROVED REPORT Exam: Resting ECG Reason for Exam: chest pain Patient Location: E HR:76 bpm ECG Measurements Heart Rate 76 AXIS NC 175 P 49 QRSd 101 QRS -15 QT 411 T 17 QTc 464 Conclusion Sinus rhythm...normal P axis, V-rate 60- 99 sinus rhythm, left axis, normal intervals, non ischemic
--- NOTE | 2023-11-25 07:59 | W.ED.GENAD ---
HPI General Date/Time Provider Initiated Documentation: 11/25/23 07:35. HPI Narrative: 67-year-old male history of recurrent esophageal foreign bodies presents after eating chicken last night sensation of esophageal foreign body rating to his left chest, regurgitating and belching, patient self-induced vomiting without resolution of symptoms. No diaphoresis or shortness of breath presyncope or other cardiopulmonary symptoms. No history of upper endoscopy in the past. Related Data Home Medications Medication Instructions Recorded Confirmed lancets [facility]/07/19 06/12/23 Lancets) ibuprofen 600 mg tablet 600 mg PO Q8H PRN inflammation and 12/18/20 11/25/23 arthritic pain #30 tabs [place] Fish Oil 1 cap PO DAILY #90 caps 02/20/22 11/25/23 albuterol sulfate 90 mcg/actuation 2 puff inhalation Q6H PRN 03/09/22 11/25/23 aerosol inhaler (ProAir HFA) shortness of breath or wheezing #8.5 grams cholecalciferol (vitamin D3) 25 1,000 unit PO DAILY 04/02/22 11/25/23 mcg (1,000 unit) capsule (Vitamin D3) levothyroxine 75 mcg tablet 75 mcg PO DAILY #90 tab-caps 01/11/23 11/25/23 blood sugar diagnostic ([facility] #90 strips 02/22/23 06/12/23 Verio test strips) omeprazole 20 mg capsule,delayed 20 mg PO DAILY #90 caps 05/24/23 11/25/23 release lorazepam 1 mg tablet 1 mg PO BID PRN anxiety #4 tabs 06/07/23 11/25/23 epinephrine 0.3 mg/0.3 mL 0.3 mg (0.3 mL) IM ONCE #2 ea 09/18/23 11/25/23 injection, auto-injector (EpiPen 2-Philip) clonidine HCl 0.1 mg tablet 0.1 mg PO BID #180 tab-caps 10/25/23 11/25/23 atorvastatin 20 mg tablet 20 mg PO DAILY #90 tabs 11/14/23 11/25/23 lorazepam 1 mg tablet (Ativan) 1 mg PO BID PRN anticipatory 11/14/23 11/25/23 anxiety; adjustment disorder #10 tabs methadone 10 mg tablet 10 mg PO BID chronic pain #56 tabs 11/14/23 11/25/23 methadone 10 mg tablet 10 mg PO BID chronic pain #56 tabs 11/14/23 11/25/23 methadone 10 mg tablet 10 mg PO BID chronic pain #56 tabs 11/14/23 11/25/23 oxycodone 10 mg tablet 15 mg (1.5 x 10 mg) PO BID PRN 11/14/23 11/25/23 pain #84 tabs oxycodone 10 mg tablet 15 mg (1.5 x 10 mg) PO BID PRN 11/14/23 11/25/23 pain #84 tabs oxycodone 10 mg tablet 15 mg (1.5 x 10 mg) PO BID PRN 11/14/23 11/25/23 pain #84 tabs Previous Rx's Medication Instructions Recorded [facility]ancets [facility] Lancets) ibuprofen 600 mg tablet 600 mg PO Q8H PRN inflammation and 12/18/20 arthritic pain #30 tabs [place] Oil 1 cap PO DAILY #90 caps 02/20/22 albuterol sulfate 90 mcg/actuation 2 puff inhalation Q6H PRN 03/09/22 aerosol inhaler (ProAir HFA) shortness of breath or wheezing #8.5 grams levothyroxine 75 mcg tablet 75 mcg PO DAILY #90 tab-caps 01/11/23 blood sugar diagnostic (OneTouch #90 strips 02/22/23 Verio test strips) omeprazole 20 mg capsule,delayed 20 mg PO DAILY #90 caps 05/24/23 release lorazepam 1 mg tablet 1 mg PO BID PRN anxiety #4 tabs 06/07/23 epinephrine 0.3 mg/0.3 mL 0.3 mg (0.3 mL) IM ONCE #2 ea 09/18/23 injection, auto-injector (EpiPen 2-Philip) clonidine HCl 0.1 mg tablet 0.1 mg PO BID #180 tab-caps 10/25/23 atorvastatin 20 mg tablet 20 mg PO DAILY #90 tabs 11/14/23 lorazepam 1 mg tablet (Ativan) 1 mg PO BID PRN anticipatory 11/14/23 anxiety; adjustment disorder #10 tabs methadone 10 mg tablet 10 mg PO BID chronic pain #56 tabs 11/14/23 methadone 10 mg tablet 10 mg PO BID chronic pain #56 tabs 11/14/23 methadone 10 mg tablet 10 mg PO BID chronic pain #56 tabs 11/14/23 oxycodone 10 mg tablet 15 mg (1.5 x 10 mg) PO BID PRN 11/14/23 pain #84 tabs oxycodone 10 mg tablet 15 mg (1.5 x 10 mg) PO BID PRN 11/14/23 pain #84 tabs oxycodone 10 mg tablet 15 mg (1.5 x 10 mg) PO BID PRN 11/14/23 pain #84 tabs Allergies Allergy/AdvReac Type Severity Reaction Status Date / Time bee venom protein (honey bee) Allergy Severe Anaphylaxis Verified 08/28/23 13:09 escitalopram oxalate AdvReac Intermediate palpitation Verified 08/28/23 13:09 [From Lexapro] s paroxetine AdvReac Intermediate DIZZINESS Verified 08/28/23 13:09 BETTE Inhibitors AdvReac Verified 08/28/23 13:09 yellow and white hornet, wasp Allergy Severe anaphylaxis Uncoded 08/28/23 13:09 yellow jacke Allergy Severe Anaphylaxsi Uncoded 08/28/23 13:09 s beta blockers AdvReac Uncoded 08/28/23 13:09 General Stated Complaint: Chest Pain BRI: 3 Review of Systems Narrative: Review of Systems Constitutional: negative Eyes: negative ENT: negative Cardiovascular: negative Respiratory: negative Gastrointestinal: Esophageal foreign body sensation : negative Musculoskeletal: negative Skin: negative Neurologic: negative Psych: negative Exam Narrative Exam Narrative: Physical Examination General: alert, awake, cooperative, resting comfortably, no acute distress HEENT: normocephalic, atraumatic; PERRL, EOM intact, conjunctiva normal; no nasal discharge; moist mucous membranes, oral and pharyngeal mucosa normal, tolerating secretions Neck: supple, trachea midline; full ROM Chest: normal to inspection Respiratory: normal respiratory effort, speaking in full sentences, clear to auscultation, no wheezing, rales or rhonchi Cardiac: regular rate, regular rhythm, S1S2 intact, no murmurs rubs or gallops GI: abdomen soft, non-tender, non-distended; no palpable mass or hepatosplenomegaly Skin: no lesions, rashes or trauma appreciated Neuro: AAOx3, normal speech, moving all extremities Psych: Appropriate mood and affect Course Vital Signs Vital signs: Vital Signs Temperature 36.7 C 11/25/23 07:35 Pulse 78 11/25/23 07:35 Respiratory Rate 16 11/25/23 07:35 Blood Pressure 185/67 H 11/25/23 07:35 Pulse Oximetry 98 11/25/23 07:35 Temperature 36.7 C 11/25/23 07:35 Temperature Source Temporal Artery Scan 11/25/23 07:35 Pulse 78 11/25/23 07:35 Respiratory Rate 16 11/25/23 07:35 Blood Pressure 185/67 H 11/25/23 07:35 Pulse Oximetry 98 11/25/23 07:35 Medical Decision Making 59-year-old male history of esophageal foreign body, presents with esophageal foreign body sensation over the past day, was eating chicken last night, discomfort in anterior chest rating into left chest, no diaphoresis shortness of breath or presyncope, no palpitations, patient attempted to self-induced vomiting without resolution of symptoms, endorses reflux symptomatology currently. No history of cardiovascular disease. Persistent nausea with intermittent dry heaving. EKG normal sinus rhythm nonischemic. High clinical suspicion for esophageal foreign body. Will obtain basic labs, chest x-ray AP lateral, screening EKG, trial of effervescent granules and famotidine, will consider glucagon administration, will dose Zofran currently as well as fluid bolus. Will also obtain troponin despite low suspicion for ACS. Lower suspicion for PE or aortic pathology. Low suspicion for pneumothorax or pneumonia. Disposition pending reassessment of symptoms. 11: 08 patient resting comfortably feeling much better after effervescent bubbles and trial of mckayla gogo, able to swallow tolerating secretions no further pain. Patient given GI referral. Home care instructions and return precautions given Quality:SDOH Health Related Social Needs: No Data to Display PFSH All Active Problems (Updated 11/25/23 @ 11:16 by Augie Lang MD) Esophageal foreign body (Acute) Disrupted sleep-wake cycle (Acute) [id number] syndrome manifesting as chronic fatigue (Acute) COVID (Acute ~10/2023) Claustrophobia (Acute) New level of rxn (@ MRI, Audio, Airplanes) Carotid stenosis, left (Acute) < 50% per US, 05/2023 Carotid stenosis, right (Acute) Rt, 50-69% .. [ ] mra Near syncope (Acute) Pain, foot (Acute) Corns and callosities (Acute) Foot pain, bilateral (Acute) Corns? Health care maintenance (Acute) Cough (Acute) Anticipatory anxiety (Acute) Sensorineural hearing loss, asymmetrical (Acute) Sensorineural hearing loss (Acute) Actinic keratitis (Acute) Family history of prostate cancer (Acute) BPH w urinary obs/LUTS (Acute) Wheal (Acute) Edema (Acute) Skin rash (Acute) Varicella zoster (Acute) 04/05/22 Dr Quinones Tinea unguium (Acute) Hx of steroid therapy (Acute) SOB (shortness of breath) (Acute) with mild exertion or conversation, NEW ONSET At high risk for osteoporosis (Acute) Encounter for screening for lung cancer (Acute 09/06/17) screen begun 10/2015; stopped smoking 2005: complete screen 10/2021. FOCAL CHANGES IDENTIFIED 11/21/17, so CT(chest) w/ contrast requested. Ordering screening CT (chest) 02/05/19. Lung nodule < 6cm on CT (Acute) following with CCT .. no change, 2021.. Hx of smoking (Chronic) Lung Screening, 2018 ((31 yrs))((quit 2005)) Essential hypertension (Chronic 03/01/17) High BPs w/o clonidine .. monitor & review for possible med changes as clonidine is not primary Rx. (06/2019) Hymenoptera allergy (Acute) New finding, anaphlxs 06/2019! 's Epipen saved him. Patent foramen ovale (Chronic 11/13/11) dr ROBLES CARDIOL [facility]; No prophylactic antibiotics indicated 04/2014 normal nucl perf scan 04/20/[address] Robles.. No myocardial perf defects, LVSyt Function normal w/ EF 69%. chest discomfort noncardiac in origin .. Anemia (Acute) Allergic reaction to insect sting (Acute) Insect sting anaphylaxis. Trigger finger, left middle finger (Acute) Depo-medrol injection: 12/07/2022; 08/03/2021 Desensitization to allergens (Acute) Per [facility] [place] Allergy note from 08/30/21 Hand joint pain (Acute) IMPROVED with Orhto/Injection. 08/2021. Acute on chronic, worsened. Swollen and stiff .. significant effort needed to open/close hand/grasp. Snapping of middle fingers, B/L (trigger finger?). Altered urinary elimination pattern (Acute) Joint pain (Acute) Migraine headache with aura (Chronic) saw Neuro (03/2019). Note: No imagin from [facility], [ ] Open MRI (w/o) if H/A persist. Hx chronic neck and back pain with opiate dependence, p/w increased headaches. D/C sumatriptan, advil -- use rizatriptan 10 mg as needed. He should not use more than 2 in a 24-hour period and no more than 4 in a 1 week period. Vitamin D deficiency (Chronic 03/20/13) level said to be <10, Dr Kim (RHEUM) . Remains low (2017), retesting, 02/2019 [ ] Steatohepatitis, non-alcoholic (Chronic 11/13/11) [place] Bx 05/14 (fatty liver, 2018, per imaging?). AST/ALT WNL, 2020.. Imaging q 3 yrs? 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 Hx Pain Clinic ([facility] [place]), Hx weaning off opioids, Methadone re-started with good results. Oxycod provided for break-through pain, wean more difficult over . Reconsidering Methadone as 1' and Oxycod decrease, 11/2018. Bilateral low back pain without sciatica (Chronic 11/03/90) chronic injured ; spinal cord implanted stimulator 2003 Neck pain of over 3 months duration (Chronic 11/13/11) Ortho: Dr. Nieto, [facility]. Long Hx .. seing chiro with some relief (less intense, but twinges/shooting pain remain) .. no clear etiology; roled up towel helps. Left sided sciatica (Chronic 07/05/17) s/p Surgery with mixed results including expected pain for life .. 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 Currently not sleeping due to lower back/sciatica pain. 11/2018 [ ] Neurology to help localize sciatic pain as oxycod helps him function at work, post piriformis release surgery. Hypothyroidism (Chronic 12/02/12) ABNL TSH 07/2012 Hypertriglyceridemia (Chronic 11/13/11) very high TG; diabetic level FBS 12/13 Hyperlipidemia (Chronic 11/13/11) high TG, risk 16%-smoker (d/c); goal LDL<130; 01/2016 CV risk 12.6% Hearing loss (Chronic 11/13/11) left ear Gastroesophageal reflux disease without esophagitis (Chronic 11/13/11) mild gastritis on EGD 04/12 Cataract, congenital (Chronic 11/13/11) congenital Adjustment disorder, unspecified (Acute 11/06/16) Adenomatous polyp of colon (Chronic 11/11/15) Dr Demian Hines 2014, [facility] 2020 Medical History Cataracts, bilateral Chronic neck and back pain Chronic, continuous use of opioids Deafness in L ear Deafness in left ear Diabetes mellitus Per A1C 6.5 measured in 2020 and 2017.. since resolved/managed with diet, IMPROVED to PREDIABETES LEVELs. GERD (gastroesophageal reflux disease) Hepatitis C Impaired fasting glucose (09/06/17) Per 2019 fasting labs .. NOW CTLLD, 02/2022. Long Hx, Pre-diabetes monitoring ... BG levels 95 - 132 with usual higher numbers post ice-cream night before. A1C improved (6.1) from 01/2018 (6.5). Nail lesion rt toe ... foreign object vs melanoma (?) Patent foramen ovale Primary osteoarthritis of right knee Synvisc injection: 05/11/2019 Surgical History Arthroplasty of knee (06/27/11) COLONOSCOPY (09/2021) 2020 Removal spinal cord stimulator and generator (04/16/18) Trigger Finger release (08/30/15) Right ring finger. Dr. Holloway Family History Mother , heart at age 87. Diabetes Father , CVA at age 81. Stroke Sister Age: 68 Personal history of malignant neoplasm breast, thyroid Brother Age: 71 Personal history of malignant neoplasm Brother No problems noted. Brother No problems noted. 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 - [employer] Current gender identity: male What type of physical activity do you participate in: walking Seatbelt use: always Drive intox or ride w/intox dedicated regional driver: No Working smoke detector in home: Yes Fire extinguisher in home: Yes Carbon monox detector in home: Yes Do you feel safe at home: Yes Do you feel safe in your relationship?: Yes Discharge Plan Disposition Patient Disposition: Home Condition: Improving Discharge Details Clinical Impression: Esophageal foreign body Primary Care Provider: Lorie Holliday ED Provider: Augie Lang [place] Meds and New Rx's Prescriptions: No Action (DME) lancets [OneTouch [place] Lancets] 33 gauge misc 1 ea Miscellaneous DAILY Qty: 90 3RF Rx Instructions: diabetes, check daily to keep A1C < 7.5 atorvastatin 20 mg tablet 20 mg PO DAILY Qty: 90 3RF lorazepam [Ativan] 1 mg tablet 1 mg PO BID MDD 2mg PRN (Reason: anticipatory anxiety; adjustment disorder) Qty: 10 1RF Rx Instructions: Trial 1/2 for anticipatory anxiety, affecting sleep. May take full 1mg qHS. methadone 10 mg tablet 10 mg PO BID MDD 20 mg Qty: 56 0RF methadone 10 mg tablet 10 mg PO BID MDD 20 mg Qty: 56 0RF Rx Instructions: I methadone 10 mg tablet 10 mg PO BID MDD 20 mg Qty: 56 0RF oxycodone 10 mg tablet 15 mg PO BID MDD 30mg PRN (Reason: pain) Qty: 84 0RF oxycodone 10 mg tablet 15 mg PO BID MDD 30mg PRN (Reason: pain) Qty: 84 0RF oxycodone 10 mg tablet 15 mg PO BID MDD 30mg PRN (Reason: pain) Qty: 84 0RF ibuprofen 600 mg tablet 600 mg PO Q8H PRN (Reason: inflammation and arthritic pain) Qty: 30 1RF [place] Oil 1 cap PO DAILY Qty: 90 0RF albuterol sulfate [ProAir HFA] 90 mcg/actuation HFA aerosol inhaler 2 puff inhalation Q6H PRN (Reason: shortness of breath or wheezing) Qty: 8.5 1RF Patient Comments: Pt no longer uses 06/06/23 ML Rx Instructions: Trial daily for shortness of breath; use with spacer (from ZANE) levothyroxine 75 mcg tablet 75 mcg PO DAILY Qty: 90 3RF (DME) Appointuit Verio test strips Strip 1 ea Miscellaneous DAILY Qty: 90 3RF Rx Instructions: Daily BG testing for Diabetes, to keep A1C < 7 TEST DAILY e11.9 omeprazole 20 mg capsule,delayed release(DR/EC) 20 mg PO DAILY Qty: 90 3RF lorazepam 1 mg tablet 1 mg PO BID PRN (Reason: anxiety) Qty: 4 0RF Rx Instructions: Pre-MRI, trial in am to minimize anticipatory anxiety (do not drive) epinephrine [EpiPen 2-Philip] 0.3 mg/0.3 mL auto-injector 0.3 mg IM ONCE Qty: 2 6RF clonidine HCl 0.1 mg tablet 0.1 mg PO BID Qty: 180 3RF Rx Instructions: for help with methadone taper and BP cholecalciferol (vitamin D3) [Vitamin D3] 25 mcg (1,000 unit) capsule 1,000 unit PO DAILY Rx Instructions: Trial TWICE day x 1 month, Vitamin D supplement Discharge Instructions Instructions: Esophageal Foreign Body (ED) Additional Instructions: Please follow-up with GI specialist as referred. Please return to the emergency department for any worsening symptoms
[2023-11-25] MEDS: Simethicone/Sod Bicarb/Cit Ac, 4 gram PACKET 1 PACKET PO (08:29)
[2023-11-25] MEDS: Famotidine 20 MG/2 ML VIAL IVP (08:29)
[2023-11-25] MEDS: Ondansetron 4 MG/2 ML VIAL IVP (08:29)
[2023-11-25] MEDS: Normal Saline 1,000 ML 1000 ML IV (08:29)
[2023-11-25 09:05] LABS: Abs Immature Grans 0.01 10^3/uL (0.0-0.06); Absolute Basophil Count 0.02 10^3/uL (0.0-0.2); Absolute Eosinophil Count 0.01 10^3/uL (0.0-0.7); Absolute Lymphocyte Count 1.66 10^3/uL (1.2-3.4); Absolute Monocyte Count 0.69 10^3/uL (0.1-0.8); Absolute Neutrophil Count 3.74 10^3/uL (1.2-6.7); Basophils % 0.3; Eosinophils % 0.2; HCT 37.1 % (40.0-50.0); HGB 12.9 g/dL (13.5-17.5); Immature Grans % 0.2; Lymphocytes % 27.1; MCH 30.1 pg (27.0-33.0); MCHC 34.8 % (32.0-36.0); MCV 87 fL (80-95); Monocytes % 11.3; Neutrophils % 60.9; Platelet Count 210 10^3/uL (130-400); RBC 4.29 10^6/uL (4.36-5.78); RDW 12.1 % (11.8-14.1); RDW-SD 38.1 fL; WBC 6.13 10^3/uL (4.4-10.8)
[2023-11-25 09:21] LABS: ALT 26 U/L (16-63); AST 21 U/L (15-37); Albumin 3.4 g/dL (3.4-5.0); Alkaline Phosphatase 65 U/L (46-116); Anion Gap 8.7 mmol/L (3-11); BUN 10 mg/dL (7-18); Bilirubin, Total 0.9 mg/dL (0.2-1.0); CO2 30.3 mmol/L (21.0-32.0); CREATININE 0.9 mg/dL (0.70-1.30); Chloride 105 mmol/L (98-107); Estimated GFR 93.03 (mL/min/1.73m2); Glucose 97 mg/dL (74-106); Lipase 19 U/L (16-77); Potassium 3.6 mmol/L (3.5-5.1); Sodium 144 mmol/L (136-145); Total Protein 6.8 g/dL (6.4-8.2)
--- NOTE | 2023-11-25 09:27 | DI.RAD_ITS ---
Exam(s) XR CHEST 2V PA LATERAL EXAM: XR CHEST 2V PA LATERAL CLINICAL HISTORY: foreign body sensation chest, chicken lastnight TECHNIQUE: 2D digital imaging was performed. COMPARISON: CT CT CHEST LUNG CANCER SCREEN from 01/24/2023 FINDINGS: HEART: Normal size. Aorta: Not dilated. PULMONARY VASCULATURE: Normal. LUNGS: Clear. PLEURAL SPACE: No pleural effusion or pneumothorax. BONE:Unremarkable for age. Soft tissues: Unremarkable. No radiopaque foreign body visible. IMPRESSION: No acute abnormality. DATA REPOSITORY: RADIATION DOSE DELIVERED:
[2023-11-25 09:58] LABS: Troponin I < 50 ng/L (< or =60)
--- NOTE | 2023-11-25 10:51 | NUR.NOTE ---
Referral faxed to [facility] for follow up to Esophageal Foreign Body within a week.
== END 2023-11-25 11:19 | disposition home or self-care (01) ==
PROVIDERS: Emergency Provider Emergency Medicine; PCP Student in an Organized Health Care Education/Training Program
DX: R07.9 Chest pain, unspecified (principal); R13.10 Dysphagia, unspecified; R09.A2 Foreign body sensation, throat; E11.9 Type 2 diabetes mellitus without complications; Z87.891 Personal history of nicotine dependence
CPT/HCPCS: 80053; 83690; 93005; 96361; 96374; 96375; 99283; 71046; 84484; 85025; 93010; J2405

== ENCOUNTER → 2023-11-28 13:48 | Outpatient (BNVA) | payer MEDICARE, SELFPAY | PROVIDERS: PCP Student in an Organized Health Care Education/Training Program; Referring Provider Student in an Organized Health Care Education/Training Program; Visit Provider Physical Therapy Assistant | DX: R13.14 Dysphagia, pharyngoesophageal phase (principal); R63.4 Abnormal weight loss | CPT/HCPCS: 99213 ==

== ENCOUNTER 2023-12-05 08:24 | Day surgery (SDC) | payer MEDICARE, SELFPAY ==
--- NOTE | 2023-12-04 17:20 | PDOC.DSDIS_ITS ---
Date of service: 12/05/23 Time of Service: 11:00 Discharge Plan Disposition Patient Disposition: Home Condition: Good Discharge Details Reason For Visit: EGD Attending Provider: Reuben Maria Primary Care Provider: Lorie Holliday Home Meds and New Rx's Prescriptions: New pantoprazole [Protonix] 40 mg tablet,delayed release (DR/EC) 40 mg PO DAILY Qty: 90 3RF Continued (DME) lancets [OneTouch Delica Lancets] 33 gauge misc 1 ea Miscellaneous DAILY Qty: 90 3RF Rx Instructions: diabetes, check daily to keep A1C < 7.5 atorvastatin 20 mg tablet 20 mg PO DAILY Qty: 90 3RF lorazepam [Ativan] 1 mg tablet 1 mg PO BID MDD 2mg PRN (Reason: anticipatory anxiety; adjustment disorder) Qty: 10 1RF Rx Instructions: Trial 1/2 for anticipatory anxiety, affecting sleep. May take full 1mg qHS. methadone 10 mg tablet 10 mg PO BID MDD 20 mg Qty: 56 0RF methadone 10 mg tablet 10 mg PO BID MDD 20 mg Qty: 56 0RF Rx Instructions: I methadone 10 mg tablet 10 mg PO BID MDD 20 mg Qty: 56 0RF oxycodone 10 mg tablet 15 mg PO BID MDD 30mg PRN (Reason: pain) Qty: 84 0RF oxycodone 10 mg tablet 15 mg PO BID MDD 30mg PRN (Reason: pain) Qty: 84 0RF oxycodone 10 mg tablet 15 mg PO BID MDD 30mg PRN (Reason: pain) Qty: 84 0RF ibuprofen 600 mg tablet 600 mg PO Q8H PRN (Reason: inflammation and arthritic pain) Qty: 30 1RF [place] Fish Oil 1 cap PO DAILY Qty: 90 0RF albuterol sulfate [ProAir HFA] 90 mcg/actuation HFA aerosol inhaler 2 puff inhalation Q6H PRN (Reason: shortness of breath or wheezing) Qty: 8.5 1RF Patient Comments: Pt no longer uses 06/06/23 ML Rx Instructions: Trial daily for shortness of breath; use with spacer (from ZANE) levothyroxine 75 mcg tablet 75 mcg PO DAILY Qty: 90 3RF (DME) OneTouch Verio test strips Strip 1 ea Miscellaneous DAILY Qty: 90 3RF Rx Instructions: Daily BG testing for Diabetes, to keep A1C < 7 TEST DAILY e11.9 omeprazole 20 mg capsule,delayed release(DR/EC) 20 mg PO DAILY Qty: 90 3RF lorazepam 1 mg tablet 1 mg PO BID PRN (Reason: anxiety) Qty: 4 0RF Rx Instructions: Pre-MRI, trial in am to minimize anticipatory anxiety (do not drive) epinephrine [EpiPen 2-Philip] 0.3 mg/0.3 mL auto-injector 0.3 mg IM ONCE Qty: 2 6RF clonidine HCl 0.1 mg tablet 0.1 mg PO BID Qty: 180 3RF Rx Instructions: for help with methadone taper and BP cholecalciferol (vitamin D3) [Vitamin D3] 25 mcg (1,000 unit) capsule 1,000 unit PO DAILY Rx Instructions: Trial TWICE day x 1 month, Vitamin D supplement Discharge Instructions Additional Instructions: Myron, I believe that I was able to identify the source of your swallowing discomfort today. It appears to me that you have what is called a Schatzki ring at the lower portion of your esophagus. Essentially, this is a circular bit of scar tissue that forms near the connection of the stomach to the esophagus. There is not a good understanding or consensus of what causes them. Treatment is typically 2 part, with medical therapy using a proton pump inhibitor, which I will prescribe today, and esophageal dilation. I did not feel comfortable performing dilation today because your stomach was still filled with quite a bit of food product. And I want to make sure that we minimize any chance of aspiration, which occurs when your stomach contents reflux up into your lungs. This can cause pneumonia and can be quite serious. I will have my office schedule another time for repeat EGD, and at that time we will plan to perform intubation (insertion of a breathing tube to protect your lungs) just in case your stomach is still full at the next procedure. This will also give us time to start the proton pump inhibitor, which hopefully will prevent or at least reduce the chances of the ring coming back after it is dilated. 1. If tolerated, consume a soft, low fiber diet for 1-2 days. [address] Do not drive, drink alcohol, operate machinery, make critical decisions, or do activities that require coordination or balance for 24 hours. 3. You may experience a sore throat for 24 to 48 hours. You may use throat lozenges or gargle with warm salt water to relieve the discomfort. 4. Because air was put into your stomach during the procedure, you may experience some belching. 5. Go directly to the emergency room if you notice any of the following: Develop chills (warm to touch), or if you have a thermometer and your temperature is above 101 Difficulty breathing or difficultly swallowing Persistent vomiting Severe abdominal pain, other than gas cramps Severe chest pain Black, tarry stools Any bleeding ? exceeding one tablespoon 6. Call your physician if the site where your intravenous was started becomes red, swollen, painful, and warm to touch. 7. Your physician has reviewed your pre-procedure medications. Please continue to take those medications as previously ordered. You will be given specific information/education regarding any changes to your medications before leaving. Activity:: Activity as Tolerated Diet:: As Tolerated Discharge Orders Discharge Orders: Discharge Order (Routine); Ordered 12/04/23 Ordered By: Reuben Maria DS: Diagnosis Discharge Diagnosis (1) Dysphagia: Status: Acute
--- NOTE | 2023-12-04 17:22 | ENDO_ITS ---
Date of service: 12/05/23 Time of Service: 11:07 Endoscopy Report DATE OF PROCEDURE: 12/05/23 PRE-OP DIAGNOSIS: Dysphagia POST-OP DIAGNOSIS: other (Schatzki's ring) PROCEDURE: EGD SURGEON: Reuben Maria ANESTHESIA TYPE: General:No Airway ESTIMATED BLOOD LOSS: 0 PATHOLOGY: none sent COMPLICATIONS: Other (IV infiltration; retained gastric contents) DISPOSITION: same day INDICATIONS: Myron is a 67 year old man who has been experiencing dysphagia and a recent episode of retained food bolus during swallowing. PROCEDURE START TIME: 10:32 PROCEDURE END TIME: 10:46 FINDINGS: Schatzki ring around 40 cm from the incisors PROCEDURE DESCRIPTION: At the initiation of anesthesia, the patient complained of right forearm pain. It was noted immediately. The IV was closed, and the forearm was evaluated. There is mildly swollen compared to the right arm. A new IV was placed more p roximal to this, and propofol was administered without any difficulty at that point. After anesthetic effect, and with the assistance of a bite block, I advanced a standard gastroscope through the mouth past the hypopharynx and into the esophagus.? Under the direct vision of the scope, I advanced down the esophagus towards the stomach.? Upper esophagus was normal. Midesophagus was normal. Majority of the lower esophagus appeared normal. Around 40 or 41 cm from the incisors was a circumferential narrowing of the distal esophagus that appeared consistent with a Schatzki ring. True GE junction measured around 42 cm from the incisors. Z-line was regular, and I did not see any obvious evidence of Herrera's esophagus. Narrowband imaging was used to assist with analysis. I was able to traverse the narrowing with the camera without any difficulty at all. Immediately upon entering the stomach, there was a large amount of retained food bolus within the gastric cardia and body. Multiple attempts were made to irrigate it, suctioning, and evaluate the area. Unfortunately, I was not able to clear the space for safe visualization. Majority of what I could see among the gastric body and antrum was normal- appearing. At this point, I do believe that the symptoms of dysphagia experienced by the patient were most consistent with a Schatzki ring. However, given its proximity to the GE junction, and the degree of retained food in this area, I did not think that dilation would be safe. Therefore, we terminated the procedure and brought the patient over to the day surgery unit.
[2023-12-05 08:27] VITALS: BP 149/80; PULSE 76; RESP 18; TEMP 36; O2SAT 96
[2023-12-05] MEDS: Lactated Ringers 1,000 ML 80 ML IV (08:53)
--- NOTE | 2023-12-05 08:59 | ANES.PREOP_ITS ---
General Info Date of Service Date Performed: 12/05/23 Height: 5 ft 8 in Weight: 77.5 kg Body Mass Index (BMI): 25.9 Surgical Procedure: Operation Date: 12/05/23 10:05 Proposed Procedure Side Surgeon p Gastroscopy Reuben Maria MD Meds Allergies and Home Medications Allergies Allergy/AdvReac Type Severity Reaction Status Date / Time bee venom protein (honey bee) Allergy Severe Anaphylaxis Verified 12/04/23 11:46 escitalopram oxalate AdvReac Intermediate palpitation Verified 12/04/23 11:46 [From Lexapro] s paroxetine AdvReac Intermediate DIZZINESS Verified 12/04/23 11:46 BETTE Inhibitors AdvReac Verified 12/04/23 11:46 yellow and white hornet, wasp Allergy Severe anaphylaxis Uncoded 12/04/23 11:46 yellow jacke Allergy Severe Anaphylaxsi Uncoded 12/04/23 11:46 s beta blockers AdvReac Uncoded 12/04/23 11:46 Home Medication Medication Instructions Recorded lancets 33 gauge ([facility] #90 ea 01/07/19 Lancets) ibuprofen 600 mg tablet 600 mg PO Q8H PRN inflammation and 12/18/20 arthritic pain #30 tabs [place] Fish Oil 1 cap PO DAILY #90 caps 02/20/22 albuterol sulfate 90 mcg/actuation 2 puff inhalation Q6H PRN 03/09/22 aerosol inhaler (ProAir HFA) shortness of breath or wheezing #8.5 grams cholecalciferol (vitamin D3) 25 1,000 unit PO DAILY 04/02/22 mcg (1,000 unit) capsule (Vitamin D3) levothyroxine 75 mcg tablet 75 mcg PO DAILY #90 tab-caps 01/11/23 blood sugar diagnostic [facility] strips 02/22/23 Verio test strips) omeprazole 20 mg capsule,delayed 20 mg PO DAILY #90 caps 05/24/23 release lorazepam 1 mg tablet 1 mg PO BID PRN anxiety #4 tabs 06/07/23 epinephrine 0.3 mg/0.3 mL 0.3 mg (0.3 mL) IM ONCE #2 ea 09/18/23 injection, auto-injector (EpiPen 2-Philip) clonidine HCl 0.1 mg tablet 0.1 mg PO BID #180 tab-caps 12/22/23 atorvastatin 20 mg tablet 20 mg PO DAILY #90 tabs 11/14/23 lorazepam 1 mg tablet (Ativan) 1 mg PO BID PRN anticipatory 11/14/23 anxiety; adjustment disorder #10 tabs methadone 10 mg tablet 10 mg PO BID chronic pain #56 tabs 11/14/23 methadone 10 mg tablet 10 mg PO BID chronic pain #56 tabs 11/14/23 methadone 10 mg tablet 10 mg PO BID chronic pain #56 tabs 11/14/23 oxycodone 10 mg tablet 15 mg (1.5 x 10 mg) PO BID PRN 11/14/23 pain #84 tabs oxycodone 10 mg tablet 15 mg (1.5 x 10 mg) PO BID PRN 11/14/23 pain #84 tabs oxycodone 10 mg tablet 15 mg (1.5 x 10 mg) PO BID PRN 11/14/23 pain #84 tabs Current Visit Medications: Current Medications Generic Name Dose Route Start Last Admin Trade Name Freq PRN Reason Stop Dose Admin Hyoscyamine Sulfate 0.125 mg 12/04/23 17:23 Hyoscyamine 0.125 Mg Sl/Oral/Chew SL 01/03/24 17:22 DIRECTED PRN Ringer's Solution 1,000 mls @ 80 mls/hr 12/05/23 06:00 12/05/23 08:53 IV 01/03/24 23:59 80 mls/hr INFUSION PRECIOUS Administration IV Miscellaneous Supplies 1 each 12/05/23 06:00 Iv Access IV 01/03/24 23:59 DIRECTED PRECIOUS Ondansetron HCl 4 mg 12/04/23 17:23 Ondansetron 4 Mg/2 Ml Vial IVP 01/03/24 17:22 Q4H PRN PRN Nausea / Vomiting Sodium Chloride 0 ml 12/05/23 06:00 Normal Saline Flush 10 Ml Syr IV 01/03/24 23:59 PRN PRN Sodium Chloride 0 ml 12/05/23 06:00 Normal Saline 10 Ml Vial IJ 01/03/24 23:59 DIRECTED PRN Sterile Water 0 ml 12/05/23 06:00 Water,Injection,Sterile 10 Ml Vial IJ 01/03/24 23:59 DIRECTED PRN PFSH Active Problems Active Problems: Problem Status Onset Code Weight loss R63.4 Dysphagia R13.10 Esophageal foreign body T18.108A 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9 Tinea unguium B35.1 Hx of steroid therapy Z92.241 SOB (shortness of breath) R06.02 At high risk for osteoporosis Z91.89 Lung nodule < 6cm on CT R91.1 Hx of smoking Z87.891 Desensitization to allergens Z51.6 Trigger finger, left middle finger M65.332 Hand joint pain M25.549 Altered urinary elimination pattern R39.198 Joint pain M25.50 Allergic reaction to insect sting T63.481A Anemia D64.9 KELVIN (acute kidney injury) N17.9 Urticaria of entire body L50.9 Hymenoptera allergy Z91.030 Migraine headache with aura G43.109 Vitamin D deficiency 03/20/13 E55.9 Steatohepatitis, non-alcoholic 11/13/11 K75.81 Patent foramen ovale 11/13/11 Q21.1 Other chronic pain 09/17/90 G89.29 Neck pain of over 3 months duration 11/13/11 M54.2, G89.29 Left sided sciatica 07/05/17 M54.32 Hypothyroidism 12/02/12 E03.9 Hypertriglyceridemia 11/13/11 E78.1 Hyperlipidemia 11/13/11 E78.5 Hearing loss 11/13/11 H91.90 Gastroesophageal reflux disease without esophagitis 11/13/11 K21.9 Essential hypertension 03/01/17 I10 Encounter for screening for lung cancer 09/06/17 Z12.2 Cataract, congenital 11/13/11 Q12.0 Bilateral low back pain without sciatica 11/03/90 M54.5 Adjustment disorder, unspecified 11/06/16 F43.20 Adenomatous polyp of colon 11/11/15 D12.6 Medical History Medical History Hiatal hernia Deafness in left ear Nail lesion rt toe ... foreign object vs melanoma (?) Diabetes mellitus Per A1C 6.5 measured in 2020 and 2017.. since resolved/managed with diet, IMPROVED to PREDIABETES LEVELs. Primary osteoarthritis of right knee Synvisc injection: 05/11/2019 Impaired fasting glucose (09/06/17) Per 2019 fasting labs .. NOW CTLLD, 02/2022. Long Hx, Pre-diabetes monitoring ... BG levels 95 - 132 with usual higher numbers post ice-cream night before. A1C improved (6.1) from 01/2018 (6.5). GERD (gastroesophageal reflux disease) Hepatitis C Pt stated treated and cured Patent foramen ovale Chronic neck and back pain Deafness in L ear Chronic, continuous use of opioids Cataracts, bilateral Surgical History Surgical History Trigger Finger release (08/30/15) Right ring finger. Dr. Holloway Removal spinal cord stimulator and generator (04/16/18) COLONOSCOPY (09/2021) 2020 Arthroplasty of knee (06/27/11) Tobacco Smoking/Tobacco Use Status: Former Tobacco Use Alcohol Alcohol Intake: current Alcohol intake frequency: 0-2 drinks per day Alcohol type: beer Substance Use Substance use: Never Substance use type: does not use Vital Signs and Lab Results Vital Signs Most Recent Vital Signs in EMR: Most Recent Vital Signs Temp Pulse Resp BP Pulse Ox 36 C L 76 18 149/80 H 96 12/05/23 08:27 12/05/23 08:27 12/05/23 08:27 12/05/23 08:27 12/05/23 08:27 Lab Results Blood Type / Crossmatch: No Data to Display Complete Blood Count: White Blood Count 6.13 10^3/uL (4.4-10.8) 11/25/23 09:00 Red Blood Count 4.29 10^6/uL (4.36-5.78) L 11/25/23 09:00 Hemoglobin 12.9 g/dL (13.5-17.5) L 11/25/23 09:00 Hematocrit 37.1 % (40.0-50.0) L 11/25/23 09:00 Platelet Count 210 10^3/uL (130-400) 11/25/23 09:00 Complete Metabolic Panel: Sodium 144 mmol/L (136-145) 11/25/23 09:00 Potassium 3.6 mmol/L (3.5-5.1) 11/25/23 09:00 Chloride 105 mmol/L (98-107) 11/25/23 09:00 Carbon Dioxide 30.3 mmol/L (21.0-32.0) 11/25/23 09:00 BUN 10 mg/dL (7-18) 11/25/23 09:00 Creatinine 0.9 mg/dL (0.70-1.30) 11/25/23 09:00 Est GFR (CKD-EPI 2020) 93.03 (mL/min/1.73m2) 11/25/23 09:00 Magnesium 2.0 mg/dL (1.8-2.4) 11/15/23 14:26 Calcium 9.0 mg/dL (8.5-10.1) 11/25/23 09:00 Albumin 3.4 g/dL (3.4-5.0) 11/25/23 09:00 Glucose 97 mg/dL (74-106) 11/25/23 09:00 Liver Function Panel: Alanine Aminotransferase (ALT/SGPT) 26 U/L (16-63) 11/25/23 09: 00 Aspartate Amino Transf (AST/SGOT) 21 U/L (15-37) 11/25/23 09:00 Coagulation Panel: No Data to Display Cardiac Panel: Troponin I < 50 ng/L (< or =60) 11/25/23 Arterial Blood Gas: No Data to Display Venous Blood Gas: No Data to Display Pancreas Panel: Lipase 19 U/L (16-77) 11/25/23 09:00 Thyroid Panel: No Data to Display Infectious Disease: No Data to Display Blood Cultures: No Data to Display Toxicology Panel: No Data to Display Imaging and Studies Imaging and Studies Study information below may be from another EMR and interpreted by another provider. Please see original notes in EMR for more complete details. Echocardiogram Summary: FINDINGS: LEFT VENTRICLE/LVEF: 60-65%. Normal size. RIGHT VENTRICLE: Normal size and function. AORTIC VALVE: Tri[place], mild aortic insufficiency. No stenosis. MITRAL VALVE: Mild mitral insufficiency, no stenosis. TRICUSPID VALVE: Mild tricuspid insufficiency. RSV/PA/RIGHT ATRIAL PRESSURE: PULMONIC VALVE: No pulmonic stenosis or insufficiency. ATRIA: Within normal limits. DIASTOLIC INDICES: GREAT VESSELS: The inferior vena cava is normal in size and collapses with inspiration. Right atrial pressure estimated at less than 10 mmHg. PERICARDIUM: No effusion. Rhythm sinus. 04/21/14 Carotid Artery Summary:: Date of Exam: 05/28/23 Sex: M Admission Date: 05/28/23 : 1955 Age: 67 Exam(s) US CAROTID EXAM: US CAROTID CLINICAL HISTORY: evaluate for stenosis; near syncope,smoker,h/o tia,r55,z13.6. TECHNIQUE: Ultrasound carotids performed using grayscale, color-flow, and spectral Doppler imaging. COMPARISON: US US ABDOMEN LIMITED from 05/10/2023 FINDINGS: CAROTID ARTERIES: There is significant plaque bilaterally at the level the carotid bulbs and proximal ICAs, appearing both noncalcified and calcified. Velocities are within normal limits but ICA/CCA PSV ratio on the right side is 2.3, consistent with stenosis of 50-69 percent. Similar ratio on the opposite-left side is 1.9, consistent with less than 50 percent stenosis. VERTEBRAL ARTERIES: Antegrade flow was demonstrated in both vertebral arteries. Measurements: R Bulb: 47.8cm/s PS / 14.1cm/s ED R CCA: 47.8cm/s PS / 12.8cm/s ED R ECA: 65.4cm/s PS / 10.1cm/s ED R ICA Prox: 80.4cm/s PS / 23.7cm/s ED R ICA Mid: 106.5cm/s PS / 34.6cm/s ED R ICA Distal: 112cm/s PS /38.6cm/s ED R Vert: 51.3cm/s PS / 18.2cm/s ED R SVR: 2.3 R DVR: 3 L Bulb: 53.2cm/s PS / 10.8cm/s ED L CCA: 52cm/s PS / 15.6cm/s ED L ECA: 85.1cm/s PS / 8.9cm/s ED L ICA Prox: 66cm/s PS / 25.6cm/s ED L ICA Mid: 96.6cm/s PS / 24.5cm/s ED L ICA Distal: 85.2cm/s PS / 30.2cm/s ED L Vert: 42.6cm/s PS / 17cm/s ED L SVR: 1.9 L DVR: 1.6 IMPRESSION: Moderate plaque bilaterally at the carotid bulbs-proximal ICAs, slightly more so on the right side with estimated stenosis on the right of 50-69 percent. Estimated stenosis on the left side is less than 50 percent. Antegrade flow was demonstrated in both vertebral arteries. Criteria for Carotid Stenosis: Normal: ICA PSV <125 cm/s no plaque or intimal thickening is visible. <50% stenosis: ICA PSV <125 cm/s and plaque or intimal thickening is visible. 50-69% stenosis: ICA PSV is 125-250 cm/s and plaque is visible. >70% stenosis to near occlusion: ICA PSV >250 cm/s with visible plaque and luminal narrowing. Anesthesia Assessment and Plan Anesthesia History Personal History: No History of Anesthesia Complications Family History: No Family History of Anesthesia Complications Exercise Tolerance Exercise Tolerance: Metabolic Equivalents>4 Pertinent Negatives Pertinent Negatives: No Symptoms of GERD and No Major Pulmonary Symptoms or Complaints Cardiac & Pulmonary Exam Cardiac Exam: Normal S1/S2 Heart Sounds Pulmonary Exam: Clear Bilateral Breath Sounds Implantable Cardiac Device Does patient have a Pacemaker or an ICD?: No Airway Exam Known Difficult Airway: No Mallampati Class: 3 Mouth Opening: Narrow (< 3cm) Thyromental Distance: Greater than 3 cm Neck Range of Motion: Limited ROM Neck Circumference: Normal Teeth Condition: Normal Dentition (Dental implants) ASA Classification ASA Score: ASA 3 Emergency Case?: No NPO Status NPO Status: NPO Clears >2 hours, Solids >8 hours Anesthesia Plan Resuscitation Status: Full Code Anesthesia Technique: General Anesthesia Airway Planned: Natural Airway Monitors Used: Standard Monitors
[2023-12-05 09:02] VITALS: BMI 25.9
[2023-12-05 10:59] VITALS: BP 142/77; PULSE 78; RESP 16; TEMP 36.5; O2SAT 95
--- NOTE | 2023-12-05 11:21 | NUR.NOTE ---
Nursing Note: 11:21am. Cold compress to patient previous right arm IV site applied. Right arm elevated on pillows. Patient right arm and previous IV site evaluated by REINSURANCE ANALYST as well. No further treatment instructions or needs per anesthesia REINSURANCE ANALYST or MD at this time.
--- NOTE | 2023-12-05 11:23 | PDOC.ANES ---
Date of service: 12/05/23 Time of Service: 11:00 Anesthesia Note Report Anesthesia Note: Propofol / Lactated Ringers IV infiltration. Pt. brought to procedure room today for his EGD and IV noted to not be running great, although it was dripping, which seemed to be improved by some gentle traction. Administered 10 ml LR flush with no patient discomfort and no swelling at site. Proceeded to induce patient with 10ml propofol followed by 10ml LR and patient complained of severe right forearm pain. Site assessed and immediate site looked flat/normal, however I did note closer to his elbow there was now an area that was notably swollen and forearm is very painful. Infusions stopped, new IV established and patient induced without incident. Infiltrated IV site removed. Report to DSU RN when case complete. Plan is to cool and elevate right arm. Consulted with pharmacy to see if propofol infiltration needs to be treated (ie. hyaluronidase) to which they advised it did not. Will continue to reassess for the next hour and see if discomfort improves. Already swelling is reduced, pain is still severe, compresses are in place. Forearm looks red/irritated with some swelling noted to hand and forearm region.
[2023-12-05 11:32] VITALS: BP 161/84; PULSE 72; RESP 18; TEMP 36.4; O2SAT 98
[2023-12-05 11:58] VITALS: BP 172/84; PULSE 68; RESP 16; TEMP 36.6; O2SAT 96
--- NOTE | 2023-12-05 13:30 | W.ANESPOSTOP ---
Postoperative Evaluation Date, Time and Location Date Performed: 12/05/23 Time Performed: 13:31 Patient Location: Day Surgery Unit Vital Signs Most Recent Imported Vital Signs: Most Recent Vital Signs Temp Pulse Resp BP Pulse Ox 36.6 C 68 16 172/84 H 96 12/05/23 11:58 12/05/23 11:58 12/05/23 11:58 12/05/23 11:58 12/05/23 11:58 Pain Score Most Recent Pain Score: Most Recent Pain Score Pain Level 5 12/05/23 11:09 Assessment Mental Status: Awake (Alert & Oriented to Patient Baseline) Airway and Respiratory Function: Patent airway with normal (patient baseline) respiratory exam Cardiovascular Function: Hemodynamically Stable Hydration Status: Adequately Hydrated Nausea & Vomiting: No Nausea or Vomiting Pain: Pain is Moderate or Severe Postoperative Pain Management: Patient having pain, declines treatment, wishes to be discharged Peripheral Nerve Block: Patient did not receive a nerve block Postoperative Comments:: Noted Propofol/LR infiltration. Treated with cool compresses, time, and no additional therayp needed per pharmacy. Pt. wishes to go home, continue ice therapy, and will be given IV infiltration DC instructions. Discussed specific concerns and when to return to ED if needed (worsened swelling, fever, skin breakdown/drainage).
== END 2023-12-05 12:54 | disposition home or self-care (01) ==
LOC: SUR 08:24
PROVIDERS: PCP Student in an Organized Health Care Education/Training Program; Visit Provider Surgery
PROC: 0DJ68ZZ Inspection of Stomach, Via Natural or Artificial Opening Endoscopic (ICD-10-PCS; CPT 43235; principal; 2023-12-05 10:00)
DX: K22.2 Esophageal obstruction (principal); R13.10 Dysphagia, unspecified
CPT/HCPCS: 43235; J2704

== ENCOUNTER 2023-12-19 10:40 | Day surgery (SDC) | payer MEDICARE, SELFPAY ==
--- NOTE | 2023-12-18 18:50 | W.PM.DSUDISC ---
Date of service: 12/19/23 Time of Service: 12:23 Discharge Plan Disposition Patient Disposition: Home Condition: Good Discharge Details Reason For Visit: EGD with dilation Attending Provider: Reuben Maria Primary Care Provider: Lorie Holliday Home Meds and New Rx's Prescriptions: Continued (DME) lancets [OneTouch Delica Lancets] 33 gauge misc 1 ea Miscellaneous DAILY Qty: 90 3RF Rx Instructions: diabetes, check daily to keep A1C < 7.5 atorvastatin 20 mg tablet 20 mg PO DAILY Qty: 90 3RF lorazepam [Ativan] 1 mg tablet 1 mg PO BID MDD 2mg PRN (Reason: anticipatory anxiety; adjustment disorder) Qty: 10 1RF Rx Instructions: Trial 1/2 for anticipatory anxiety, affecting sleep. May take full 1mg qHS. oxycodone 10 mg tablet 15 mg PO BID MDD 30mg PRN (Reason: pain) Qty: 84 0RF oxycodone 10 mg tablet 15 mg PO BID MDD 30mg PRN (Reason: pain) Qty: 84 0RF oxycodone 10 mg tablet 15 mg PO BID MDD 30mg PRN (Reason: pain) Qty: 84 0RF ibuprofen 600 mg tablet 600 mg PO Q8H PRN (Reason: inflammation and arthritic pain) Qty: 30 1RF [place] Fish Oil 1 cap PO DAILY Qty: 90 0RF albuterol sulfate [ProAir HFA] 90 mcg/actuation HFA aerosol inhaler 2 puff inhalation Q6H PRN (Reason: shortness of breath or wheezing) Qty: 8.5 1RF Patient Comments: Pt no longer uses 06/06/23 ML Rx Instructions: Trial daily for shortness of breath; use with spacer (from [facility]) levothyroxine 75 mcg tablet 75 mcg PO DAILY Qty: 90 3RF (DME) OneTouch Verio test strips Strip 1 ea Miscellaneous DAILY Qty: 90 3RF Rx Instructions: Daily BG testing for Diabetes, to keep A1C < 7 TEST DAILY e11.9 lorazepam 1 mg tablet 1 mg PO BID PRN (Reason: anxiety) Qty: 4 0RF Rx Instructions: Pre-MRI, trial in am to minimize anticipatory anxiety (do not drive) epinephrine [EpiPen 2-Philip] 0.3 mg/0.3 mL auto-injector 0.3 mg IM ONCE Qty: 2 6RF clonidine HCl 0.1 mg tablet 0.1 mg PO BID Qty: 180 3RF Rx Instructions: for help with methadone taper and BP methadone 10 mg tablet 10 mg PO BID MDD 20 mg Qty: 56 0RF Rx Instructions: I cholecalciferol (vitamin D3) [Vitamin D3] 25 mcg (1,000 unit) capsule 1,000 unit PO DAILY Rx Instructions: Trial TWICE day x 1 month, Vitamin D supplement pantoprazole [Protonix] 40 mg tablet,delayed release (DR/EC) 40 mg PO DAILY Qty: 90 3RF Discharge Instructions Additional Instructions: Myron, your endoscopy today went much better. With the breathing tube in place, I was able to thoroughly evaluate all of your stomach, and get a better look at your esophagus. As you probably remember, during the previous endoscopy, I was worried that there was a narrowing at the bottom part of your esophagus. Under anesthesia today, I do not see signs of that. However, it does look like the lower esophageal sphincter has some failure to relax, when I advanced the camera [id number] across it, the actual size looks normal, and I do not see anything to dilate. With this information, I suspect the more accurate diagnosis here might be achalasia, which is failure of the lower esophageal sphincter to appropriately relax. I was able to perform multiple biopsies today, and I would like to wait to see with a show before we make any other changes. I am going to order a test called a barium swallow that can be done over the next few weeks to see how your esophagus moves fluid through, and to see if there is any evidence to support that diagnosis of achalasia. In the meantime, please continue using the pantoprazole (Protonix) that I prescribed last time. I will be in touch when I have the results of the biopsies. 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 Will follow-up on the pathology results from the biopsies, and plan for barium swallow.
--- NOTE | 2023-12-18 18:53 | W.PM.ENDDOP ---
Date of service: 12/19/23 Time of Service: 12:42 Endoscopy Report DATE OF PROCEDURE: 12/19/23 PRE-OP DIAGNOSIS: Esophageal web POST-OP DIAGNOSIS: other (Gastritis and possible achalasia) PROCEDURE: EGD with biopsies SURGEON: Reuben Maria ANESTHESIA TYPE: General LMA/ETT ESTIMATED BLOOD LOSS: 10 PATHOLOGY: other (Biopsies of gastric antrum and body, biopsies of gastric inflammation) COMPLICATIONS: None DISPOSITION: same day INDICATIONS: Myron is a 67 year old man with dysphagia, and a previous episode of retained food bolus in the esophagus. I performed a diagnostic EGD on him about 2 weeks ago, unfortunately, this was complicated by significant amount of retained gastric food product, which precluded adequate visualization. I did have some concerns that there may be a Schatzki's ring towards the distal portion of the esophagus. He is here for repeat EGD under endotracheal anesthesia PROCEDURE START TIME: 12:12 PROCEDURE END TIME: 12:21 FINDINGS: Bile reflux gastritis with normal-appearing lower esophagus. Possible lower esophageal sphincter hypertension or achalasia PROCEDURE DESCRIPTION: After the initiation of general anesthesia, I advanced the gastroscope down through the hypopharynx into the esophagus. I gently advanced down along the length of the esophagus which appeared normal. Careful attention was paid to the lower portion of the esophagus where had previous concerns of a Schatzki ring. However, on this examination, I do not see any evidence of strictures, narrowing, or discrete esophageal pathology. The lower esophageal sphincter is contracted, with minimal opening. I am able to gently advance the gastroscope across the lower esophageal sphincter into the stomach. There is some retained bile in the stomach, but otherwise it was empty. I insufflated the stomach until the gastric rugae were completely obliterated. I performed retroflexion. The underside of the Z-line can be seen during retroflexion. There is no hiatal hernia. I see no evidence of Herrear's esophagus. Examination across the GE junction measures the Z-line at 41 cm from the incisors. There is some gastritis along the upper portion of the gastric body towards the cardia, in the same area that was previously obscured by retained food product. I saw no polyps, tumors, or any other worrisome signs of malignancy. Narrowband imaging was used to assist with analysis. I did perform cold forceps biopsies of the gastritis. The mucosa was a little bit friable, but there was no worrisome bleeding. The camera is turned antegrade, and the rest of the stomach is examined. Aside from some bile staining, the rest of the incisura angularis, gastric antrum, pylorus were all normal-appearing. I advanced across the pylorus into the duodenum. This was also normal. I then brought the camera back into the stomach, perform random biopsies of the gastric antrum and body to rule out Helicobacter pylori as a source of his symptoms. This was done with cold forceps, there was minimal bleeding here. Next, I emptied the stomach, and brought the camera back up across the GE junction examining the esophagus once again. As previously mentioned, I did not see any signs of pathology that required esophageal dilation. Camera is brought out along the length of the esophagus, and removed prior to allowing the patient to wake up from anesthetic. He was transferred to the recovery unit for ongoing monitoring.
[2023-12-19] VITALS (8 sets, daily range): BP systolic 113–144; BP diastolic 58–74; PULSE 58–70; RESP 12–16; TEMP 36.2–36.7; O2SAT 94–98; BMI 25.9
[2023-12-19] MEDS: Lactated Ringers 1,000 ML 80 ML IV (11:14)
--- NOTE | 2023-12-19 11:27 | ANES.PREOP_ITS ---
General Info Date of Service Date Performed: 12/19/23 Height: 5 ft 8 in Weight: 77.5 kg Body Mass Index (BMI): 25.9 Surgical Procedure: Operation Date: 12/19/23 10:35 Proposed Procedure Side Surgeon p Gastroscopy with Dilation Reuben Maria MD Meds Allergies and Home Medications Allergies Allergy/AdvReac Type Severity Reaction Status Date / Time bee venom protein (honey bee) Allergy Severe Anaphylaxis Verified 12/19/23 11:08 escitalopram oxalate AdvReac Intermediate palpitation Verified 12/19/23 11:08 [From Lexapro] s paroxetine AdvReac Intermediate DIZZINESS Verified 12/19/23 11:08 BETTE Inhibitors AdvReac Other (See Verified 12/19/23 11:08 Comment) yellow and white hornet, wasp Allergy Severe anaphylaxis Uncoded 12/19/23 11:08 yellow jacke Allergy Severe Anaphylaxsi Uncoded 12/19/23 11:08 s beta blockers AdvReac Other (See Uncoded 12/19/23 11:08 Comment) Home Medication Medication Instructions Recorded lancets 33 gauge ([employer] [facility] #90 ea 01/07/19 Lancets) ibuprofen 600 mg tablet 600 mg PO Q8H PRN inflammation and 12/18/20 arthritic pain #30 tabs [place] Fish Oil 1 cap PO DAILY #90 caps 02/20/22 albuterol sulfate 90 mcg/actuation 2 puff inhalation Q6H PRN 03/09/22 aerosol inhaler (ProAir HFA) shortness of breath or wheezing #8.5 grams cholecalciferol (vitamin D3) 25 1,000 unit PO DAILY 04/02/22 mcg (1,000 unit) capsule (Vitamin D3) levothyroxine 75 mcg tablet 75 mcg PO DAILY #90 tab-caps 01/11/23 blood sugar diagnostic (ideasoftuch #90 strips 02/22/23 Verio test strips) lorazepam 1 mg tablet 1 mg PO BID PRN anxiety #4 tabs 06/07/23 epinephrine 0.3 mg/0.3 mL 0.3 mg (0.3 mL) IM ONCE #2 ea 09/18/23 injection, auto-injector (EpiPen 2-Philip) clonidine HCl 0.1 mg tablet 0.1 mg PO BID #180 tab-caps 10/25/23 atorvastatin 20 mg tablet 20 mg PO DAILY #90 tabs 11/14/23 lorazepam 1 mg tablet (Ativan) 1 mg PO BID PRN anticipatory 11/14/23 anxiety; adjustment disorder #10 tabs oxycodone 10 mg tablet 15 mg (1.5 x 10 mg) PO BID PRN 11/14/23 pain #84 tabs oxycodone 10 mg tablet 15 mg (1.5 x 10 mg) PO BID PRN 11/14/23 pain #84 tabs oxycodone 10 mg tablet 15 mg (1.5 x 10 mg) PO BID PRN 11/14/23 pain #84 tabs methadone 10 mg tablet 10 mg PO BID chronic pain #56 tabs 12/05/23 pantoprazole 40 mg tablet,delayed 40 mg PO DAILY #90 tabs 12/05/23 release (Protonix) Current Visit Medications: Current Medications Generic Name Dose Route Start Last Admin Trade Name Freq PRN Reason Stop Dose Admin Hyoscyamine Sulfate 0.125 mg 12/18/23 18:55 Hyoscyamine 0.125 Mg Sl/Oral/Chew SL 01/17/24 18:54 DIRECTED PRN Ringer's Solution 1,000 mls @ 80 mls/hr 12/19/23 06:00 12/19/23 11:14 IV 12/19/23 23:59 80 mls/hr INFUSION PRECIOUS Administration IV Miscellaneous Supplies 1 each 12/19/23 06:00 Iv Access IV 12/19/23 23:59 DIRECTED PRECIOUS Ondansetron HCl 4 mg 12/18/23 18:55 Ondansetron 4 Mg/2 Ml Vial IVP 01/17/24 18:54 Q4H PRN PRN Nausea / Vomiting Sodium Chloride 0 ml 12/19/23 06:00 Normal Saline Flush 10 Ml Syr IV 12/19/23 23:59 PRN PRN Sodium Chloride 0 ml 12/19/23 06:00 Normal Saline 10 Ml Vial IJ 12/19/23 23:59 DIRECTED PRN Sterile Water 0 ml 12/19/23 06:00 Water,Injection,Sterile 10 Ml Vial IJ 12/19/23 23:59 DIRECTED PRN PFSH Active Problems Active Problems: Problem Status Onset Code Esophageal web determined by endoscopy Q39.4 Impacted cerumen, right ear H61.21 Weight loss R63.4 Dysphagia R13.10 Esophageal foreign body T18.108A 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9 Tinea unguium B35.1 Hx of steroid therapy Z92.241 SOB (shortness of breath) R06.02 At high risk for osteoporosis Z91.89 Lung nodule < 6cm on CT R91.1 Hx of smoking Z87.891 Desensitization to allergens Z51.6 Trigger finger, left middle finger M65.332 Hand joint pain M25.549 Altered urinary elimination pattern R39.198 Joint pain M25.50 Allergic reaction to insect sting T63.481A Anemia D64.9 KELVIN (acute kidney injury) N17.9 Urticaria of entire body L50.9 Hymenoptera allergy Z91.030 Migraine headache with aura G43.109 Vitamin D deficiency 03/20/13 E55.9 Steatohepatitis, non-alcoholic 11/13/11 K75.81 Patent foramen ovale 11/13/11 Q21.1 Other chronic pain 09/17/90 G89.29 Neck pain of over 3 months duration 11/13/11 M54.2, G89.29 Left sided sciatica 07/05/17 M54.32 Hypothyroidism 12/02/12 E03.9 Hypertriglyceridemia 11/13/11 E78.1 Hyperlipidemia 11/13/11 E78.5 Hearing loss 11/13/11 H91.90 Gastroesophageal reflux disease without esophagitis 11/13/11 K21.9 Essential hypertension 03/01/17 I10 Encounter for screening for lung cancer 09/06/17 Z12.2 Cataract, congenital 11/13/11 Q12.0 Bilateral low back pain without sciatica 11/03/90 M54.5 Adjustment disorder, unspecified 11/06/16 F43.20 Adenomatous polyp of colon 11/11/15 D12.6 Medical History Medical History Hiatal hernia Deafness in left ear Nail lesion rt toe ... foreign object vs melanoma (?) Diabetes mellitus Per A1C 6.5 measured in 2020 and 2017.. since resolved/managed with diet, IMPROVED to PREDIABETES LEVELs. Primary osteoarthritis of right knee Synvisc injection: 05/11/2019 Impaired fasting glucose (09/06/17) Per 2019 fasting labs .. NOW CTLLD, 02/2022. Long Hx, Pre-diabetes monitoring ... BG levels 95 - 132 with usual higher numbers post ice-cream night before. A1C improved (6.1) from 01/2018 (6.5). GERD (gastroesophageal reflux disease) Hepatitis C Pt stated treated and cured Patent foramen ovale Chronic neck and back pain Deafness in L ear Chronic, continuous use of opioids Cataracts, bilateral Surgical History Surgical History History of esophagogastroduodenoscopy (~12/2023) Trigger Finger release (08/30/15) Right ring finger. Dr. Holloway Removal spinal cord stimulator and generator (04/16/18) COLONOSCOPY (09/2021) 2020 Arthroplasty of knee (06/27/11) Tobacco Smoking/Tobacco Use Status: Former Tobacco Use Alcohol Alcohol Intake: current Alcohol intake frequency: 0-2 drinks per day Alcohol type: beer Substance Use Substance use: Never Substance use type: does not use Vital Signs and Lab Results Vital Signs Most Recent Vital Signs in EMR: Most Recent Vital Signs Temp Pulse Resp BP Pulse Ox 36.6 C 62 16 132/72 97 12/19/23 11:11 12/19/23 11:11 12/19/23 11:11 12/19/23 11:11 12/19/23 11:11 Lab Results Blood Type / Crossmatch: No Data to Display Complete Blood Count: White Blood Count 6.13 10^3/uL (4.4-10.8) 11/25/23 09:00 Red Blood Count 4.29 10^6/uL (4.36-5.78) L 11/25/23 09:00 Hemoglobin 12.9 g/dL (13.5-17.5) L 11/25/23 09:00 Hematocrit 37.1 % (40.0-50.0) L 11/25/23 09:00 Platelet Count 210 10^3/uL (130-400) 11/25/23 09:00 Complete Metabolic Panel: Sodium 144 mmol/L (136-145) 11/25/23 09:00 Potassium 3.6 mmol/L (3.5-5.1) 11/25/23 09:00 Chloride 105 mmol/L (98-107) 11/25/23 09:00 Carbon Dioxide 30.3 mmol/L (21.0-32.0) 11/25/23 09:00 BUN 10 mg/dL (7-18) 11/25/23 09:00 Creatinine 0.9 mg/dL (0.70-1.30) 11/25/23 09:00 Est GFR (CKD-EPI 2020) 93.03 (mL/min/1.73m2) 11/25/23 09:00 Calcium 9.0 mg/dL (8.5-10.1) 11/25/23 09:00 Albumin 3.4 g/dL (3.4-5.0) 11/25/23 09:00 Glucose 97 mg/dL (74-106) 11/25/23 09:00 Liver Function Panel: Alanine Aminotransferase (ALT/SGPT) 26 U/L (16-63) 11/25/23 09: 00 Aspartate Amino Transf (AST/SGOT) 21 U/L (15-37) 11/25/23 09:00 Coagulation Panel: No Data to Display Cardiac Panel: Troponin I < 50 ng/L (< or =60) 11/25/23 Arterial Blood Gas: No Data to Display Venous Blood Gas: No Data to Display Pancreas Panel: Lipase 19 U/L (16-77) 11/25/23 09:00 Thyroid Panel: No Data to Display Infectious Disease: No Data to Display Blood Cultures: No Data to Display Toxicology Panel: No Data to Display Imaging and Studies Imaging and Studies Study information below may be from another EMR and interpreted by another provider. Please see original notes in EMR for more complete details. EKG Summary: 11/25/23: Exam: Resting ECG Reason for Exam: chest pain Patient Location: E HR:76 bpm ECG Measurements Heart Rate 76 AXIS NM 175 P 49 QRSd 101 QRS -15 QT 411 T17 QTc 464 Conclusion Sinus rhythm...normal P axis, V-rate 60- 99 sinus rhythm, left axis, normal intervals, non ischemic I have reviewed and I agree with the emergency room physician's ECG interpretation. Echocardiogram Summary: FINDINGS: LEFT VENTRICLE/LVEF: 60-65%. Normal size. RIGHT VENTRICLE: Normal size and function. AORTIC VALVE: Trileaflet, mild aortic insufficiency. No stenosis. MITRAL VALVE: Mild mitral insufficiency, no stenosis. TRICUSPID VALVE: Mild tricuspid insufficiency. RSV/PA/RIGHT ATRIAL PRESSURE: PULMONIC VALVE: No pulmonic stenosis or insufficiency. ATRIA: Within normal limits. DIASTOLIC INDICES: GREAT VESSELS: The inferior vena cava is normal in size and collapses with inspiration. Right atrial pressure estimated at less than 10 mmHg. PERICARDIUM: No effusion. Rhythm sinus. 04/21/14 Carotid Artery Summary:: Date of Exam: 05/28/23 Sex: M Admission Date: 05/28/23 : 1955 Age: 67 Exam(s) US CAROTID EXAM: US CAROTID CLINICAL HISTORY: evaluate for stenosis; near syncope,smoker,h/o tia,r55,z13.6. TECHNIQUE: Ultrasound carotids performed using grayscale, color-flow, and spectral Doppler imaging. COMPARISON: US US ABDOMEN LIMITED from 05/10/2023 FINDINGS: CAROTID ARTERIES: There is significant plaque bilaterally at the level the carotid bulbs and proximal ICAs, appearing both noncalcified and calcified. Velocities are within normal limits but ICA/CCA PSV ratio on the right side is 2.3, consistent with stenosis of 50-69 percent. Similar ratio on the opposite-left side is 1.9, consistent with less than 50 percent stenosis. VERTEBRAL ARTERIES: Antegrade flow was demonstrated in both vertebral arteries. Measurements: R Bulb: 47.8cm/s PS / 14.1cm/s ED R CCA: 47.8cm/s PS / 12.8cm/s ED R ECA: 65.4cm/s PS / 10.1cm/s ED R ICA Prox: 80.4cm/s PS / 23.7cm/s ED R ICA Mid: 106.5cm/s PS / 34.6cm/s ED R ICA Distal: 112cm/s PS /38.6cm/s ED R Vert: 51.3cm/s PS / 18.2cm/s ED R SVR: 2.3 R DVR: 3 L Bulb: 53.2cm/s PS / 10.8cm/s ED L CCA: 52cm/s PS / 15.6cm/s ED L ECA: 85.1cm/s PS / 8.9cm/s ED L ICA Prox: 66cm/s PS / 25.6cm/s ED L ICA Mid: 96.6cm/s PS / 24.5cm/s ED L ICA Distal: 85.2cm/s PS / 30.2cm/s ED L Vert: 42.6cm/s PS / 17cm/s ED L SVR: 1.9 L DVR: 1.6 IMPRESSION: Moderate plaque bilaterally at the carotid bulbs-proximal ICAs, slightly more so on the right side with estimated stenosis on the right of 50-69 percent. Estimated stenosis on the left side is less than 50 percent. Antegrade flow was demonstrated in both vertebral arteries. Criteria for Carotid Stenosis: Normal: ICA PSV <125 cm/s no plaque or intimal thickening is visible. <50% stenosis: ICA PSV <125 cm/s and plaque or intimal thickening is visible. 50-69% stenosis: ICA PSV is 125-250 cm/s and plaque is visible. >70% stenosis to near occlusion: ICA PSV >250 cm/s with visible plaque and luminal narrowing. Anesthesia Assessment and Plan Anesthesia History Personal History: No History of Anesthesia Complications Family History: No Family History of Anesthesia Complications Exercise Tolerance Exercise Tolerance: Metabolic Equivalents>4 Cardiac & Pulmonary Exam Cardiac Exam: Normal S1/S2 Heart Sounds Pulmonary Exam: Clear Bilateral Breath Sounds Implantable Cardiac Device Does patient have a Pacemaker or an ICD?: No Airway Exam Known Difficult Airway: No Mallampati Class: 3 Mouth Opening: Narrow (< 3cm) Thyromental Distance: Greater than 3 cm Neck Range of Motion: Limited ROM Neck Circumference: Normal Teeth Condition: Normal Dentition (Dental implants) ASA Classification ASA Score: ASA 3 Emergency Case?: No NPO Status NPO Status: NPO Clears >2 hours, Solids >8 hours Anesthesia Plan Resuscitation Status: Full Code Anesthesia Technique: General Anesthesia Airway Planned: Endotracheal Tube (RSI) Monitors Used: Standard Monitors
--- NOTE | 2023-12-19 12:03 | STOM_PTH ---
PATIENT: Myron Espana LOC: [facility] U#:[id number] AGE/SX: 67/M ROOM: RE12/19/[address]: Reuben Maria MD : 1955 BED: DIS: 12/19/2023 SPEC #: [id number] RECD: 12/19/23 12:50 STATUS: JOSEMANEUL RE #: [id number] KRISTIAN: 12/19/23 12:[address]: Reuben Maria DEPT: Surgical Specimen RECD BY: Michelle Oseguera ENTERED: 12/19/23 12:51 SP TYPE: STOMACH OTHR DR: Lorie Holliday DO Tissues: 1 - STOMACH BIOPSY 2 - STOMACH BIOPSY 3 - STOMACH BIOPSY Procedures: GROSS AND MICRO LEVEL 4 Comments: [id number]
--- NOTE | 2023-12-19 12:39 | W.ANESPOSTOP ---
Postoperative Evaluation Date, Time and Location Date Performed: 12/19/23 Time Performed: 12:39 Patient Location: PACU Vital Signs Most Recent Imported Vital Signs: Most Recent Vital Signs Temp Pulse Resp BP Pulse Ox 36.6 C 69 14 117/65 95 12/19/23 12:36 12/19/23 12:36 12/19/23 12:36 12/19/23 12:36 12/19/23 12:36 Pain Score Most Recent Pain Score: Most Recent Pain Score Pain Level 0 12/19/23 12:36 Assessment Mental Status: Arousable with meaningful communication Airway and Respiratory Function: Patent airway with normal (patient baseline) respiratory exam Cardiovascular Function: Hemodynamically Stable Hydration Status: Adequately Hydrated Nausea & Vomiting: No Nausea or Vomiting Pain: Pt. Denies Any Pain Peripheral Nerve Block: Patient did not receive a nerve block
== END 2023-12-19 14:50 | disposition home or self-care (01) ==
LOC: SUR 10:40
PROVIDERS: PCP Student in an Organized Health Care Education/Training Program; Visit Provider Surgery
PROC: 0D758ZZ Dilation of Esophagus, Via Natural or Artificial Opening Endoscopic (ICD-10-PCS; CPT 43239; principal; 2023-12-19 10:30)
DX: K21.9 Gastro-esophageal reflux disease without esophagitis; E03.9 Hypothyroidism, unspecified; K29.70 Gastritis, unspecified, without bleeding
CPT/HCPCS: 43239; 88305; J0330; J2001; J2250; J2405; J2704

== ENCOUNTER → 2024-01-01 14:24 | Outpatient (BNVA) | payer MEDICARE, SELFPAY | PROVIDERS: PCP Student in an Organized Health Care Education/Training Program; Referring Provider Student in an Organized Health Care Education/Training Program; Visit Provider Podiatrist | DX: M79.671 Pain in right foot; M79.672 Pain in left foot; R60.9 Edema, unspecified; L84 Corns and callosities | CPT/HCPCS: 17110 ==

== ENCOUNTER → 2024-01-08 02:06 | Outpatient (CLI) | payer MEDICARE, SELFPAY ==
--- NOTE | 2024-01-08 14:40 | ST.MBS_ITS ---
Date of Service Date of service: 01/08/24 Time of Service: 14:40 Modified Barium Swallow Study Findings: Video fluoroscopic Swallowing Evaluation (VFSE) / Modified Barium Swallow Study (MBSS) Speech Language Pathology Report Patient referred for VFSE/MBSS from Dr. Hope given history of esophageal food impaction. HPI & Patient report of function: Patient is a 68 year old M with a history of dysphagia and painful esophageal retention. He sometimes will need to induce regurgitation to clear this. Once he does, he is able to proceed with meal. It can happen with both solids and liquids. He underwent EGD on 12/19 with findings of bile reflux gastritis with normal-appearing lower esophagus and possible lower esophageal sphincter hypertension. All Active Problems (Updated 12/20/23 @ 14:44 by Lorie Holliday, ) Esophageal web determined by endoscopy (Acute) probably not? per 12/19/23 EGD .. 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 mraNear syncope (Acute) Pain, foot (Acute) Corns and callosities (Acute) Foot pain, bilateral (Acute) Corns?Health care maintenance (Acute) Cough (Acute) Anticipatory anxiety (Acute) Sensorineural hearing loss, asymmetrical (Acute) Sensorineural hearing loss (Acute) Actinic keratitis (Acute) Family history of prostate cancer (Acute) BPH w urinary obs/LUTS (Acute) Wheal (Acute) Edema (Acute) Skin rash (Acute) Varicella zoster (Acute) 04/05/22 Dr Rancho brooks (Acute) Hx of steroid therapy (Acute) SOB (shortness of breath) (Acute) with mild exertion or conversation, NEW ONSETAt high risk for osteoporosis (Acute) Lung nodule < 6cm on CT (Acute) following with CCT .. no change, 2021..Hx of smoking (Chronic) Lung Screening, 2018, 2018 ((31 yrs))((quit 2005))Desensitization to allergens (Acute) Per [facility] [place] Allergy note from 08/30/21Trigger finger, left middle finger (Acute) Depo-medrol injection: 12/07/2022; 08/03/2021Hand joint pain (Acute) IMPROVED with Orhto/Injection. 08/2021. Acute on chronic, worsened. Swollen and stiff .. significant effort needed to open/close hand/grasp. Snapping of middle fingers, B/L (trigger finger?).Altered urinary elimination pattern (Acute) Joint pain (Acute) Allergic reaction to insect sting (Acute) Insect sting anaphylaxis. Anemia (Acute) Hymenoptera allergy (Acute) New finding, anaphlxs 06/2019! 's Epipen saved him.Migraine headache with aura (Chronic) saw Neuro (03/2019). Note: No imagin from [facility], [ ] Open MRI (w/o) if H/A persist. Hx chronic neck and back pain with opiate dependence, p/w increased headaches. D/C sumatriptan, advil -- use rizatriptan 10 mg as needed. He should not use more than 2 in a 24-hour period and no more than 4 in a 1 week period.Vitamin D deficiency (Chronic 03/20/13) level said to be <10, Dr Kim (RHEUM) . Remains low (2017), retesting, 02/2019 [ ] Steatohepatitis, non-alcoholic (Chronic 11/13/11) [facility]MAN Bx 05/14 (fatty liver, 2018, per imaging?). AST/ALT WNL, 2020.. Imaging q 3 yrs? Patent foramen ovale (Chronic 11/13/11) dr ROBLES CARDIOL [facility]; No prophylactic antibiotics indicated 04/2014 normal nucl perf scan 04/20/[address] Robles.. No myocardial perf defects, LVSyt Function normal w/ EF 69%. chest discomfort noncardiac in origin .. 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 Hx Pain Clinic ([facility] [place]), Hx weaning off opioids, Methadone re-started with good results. Oxycod provided for break-through pain, wean more difficult over . Reconsidering Methadone as 1' and Oxycod decrease, 11/2018. Neck pain of over 3 months duration (Chronic 11/13/11) Ortho: Dr. Nieto, [facility]. Long Hx .. seing chiro with some relief (less intense, but twinges/shooting pain remain) .. no clear etiology; roled up towel helps. Left sided sciatica (Chronic 07/05/17) s/p Surgery with mixed results including expected pain for life .. 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 Currently not sleeping due to lower back/sciatica pain. 11/2018 [ ] Neurology to help localize sciatic pain as oxycod helps him function at work, post piriformis release surgery.Hypothyroidism (Chronic 12/02/12) ABNL TSH 07/2012 Hypertriglyceridemia (Chronic 11/13/11) very high TG; diabetic level FBS 12/13 Hyperlipidemia (Chronic 11/13/11) high TG, risk 16%-smoker (d/c); goal LDL<130; 01/2016 CV risk 12.6% Hearing loss (Chronic 11/13/11) left ear Gastroesophageal reflux disease without esophagitis (Chronic 11/13/11) mild gastritis on EGD 04/12 Essential hypertension (Chronic 03/01/17) High BPs w/o clonidine .. monitor & review for possible med changes as clonidine is not primary Rx. (06/2019)Encounter for screening for lung cancer (Acute 09/06/17) screen begun 10/2015; stopped smoking 2005: complete screen 10/2021. FOCAL CHANGES IDENTIFIED 11/21/17, so CT(chest) w/ contrast requested. Ordering screening CT (chest) 02/05/19. Cataract, congenital (Chronic 11/13/11) congenital Bilateral low back pain without sciatica (Chronic 11/03/90) chronic injured ; spinal cord implanted stimulator 2003 Adjustment disorder, unspecified (Acute 11/06/16) Adenomatous polyp of colon (Chronic 11/11/15) Dr Demian Hines 2014, [facility] 2020 Medical History (Updated 12/20/23 @ 14:44 by Lorie Holliday, DO) Hiatal hernia Deafness in left ear Nail lesion rt toe ... foreign object vs melanoma (?)Diabetes mellitus Per A1C 6.5 measured in 2020 and 2017.. since resolved/managed with diet, IMPROVED to PREDIABETES LEVELs.Primary osteoarthritis of right knee Synvisc injection: 05/11/2019Impaired fasting glucose (09/06/17) Per 2019 fasting labs .. NOW CTLLD, 02/2022. Long Hx, Pre-diabetes monitoring ... BG levels 95 - 132 with usual higher numbers post ice-cream night before. A1C improved (6.1) from 01/2018 (6.5).GERD (gastroesophageal reflux disease) Hepatitis C Pt stated treated and curedPatent foramen ovale Chronic neck and back pain Deafness in L earChronic, continuous use of opioids Cataracts, bilateral Surgical History (Updated 12/20/23 @ 09:56 by Elizabeth Paul) History of esophagogastroduodenoscopy (~12/2023) with biopsyTrigger Finger release (08/30/15) Right ring finger. Dr. Terry spinal cord stimulator and generator (04/16/18) COLONOSCOPY (09/2021) rthroplasty of knee (06/27/11) IMPRESSIONS: Swallow safety is preserved; swallow efficiency is mildly impaired. Overall oral-pharyngeal swallow function appears safe with only scant laryngeal penetration due to mild delayed pharyngeal onset, but without aspiration of thin liquids. There was mild vallecular residue only for dry solids. There is partial disruption of flow through the proximal esophagus due to prominence at level of C5-6 appearing c/w osteophyte, though functionally this did not cause any true stasis or pyriform residue. The 13mm barium tablet was perhaps slowed, but not retained in this segment. Also noting some rough edges within the UES at level of C4 from lateral view, not consistent with appearance of Zenker's diverticulum and not consistsent with cricopharyngeal prominence. Question if consistent with ?mild esophageal webbing, however, this does not appear to functionally alter solid nor liquid bolus flow at any point during the study. Interestingly, when esophageal survey was performed, liquid was retained in the distal esophagus for much longer than the puree. Esophageal transit does appear to fluctuate significantly from trial to trial and may warrant GI consult to further evaluate esophageal motility. Surgeon who performed EGD has recommended Regular Barium Swallow. I think it would be reasonable to proceed with this if patient wishes to do more tests locally first, but a referral to GI may also be helpful in the event that they would prefer to proceed with another type of diagnostic procedure (e.g., esophageal manometry). No further [employer] REPA[employer] services are indicated at this time. Patient was provided with some recommendations as below. Specialist referrals:? GI ? RECOMMENDATIONS: Diet Texture Recommendation:? IDDSI LEVEL SOLIDS 6-Soft & Bite-Sized Solids LIQUIDS 0-Thin Liquids MEDICATIONS Whole with 0-Thin Liquids Diet texture modification is per patient's preference; please adjust diet textures at patient's discretion & collaboration with care team. Do not alter medications (e.g., cut)? without advice from your MD or pharmacist. Risk Management Strategies:? Behavioral reflux precautions, including upright position during + 90 mins after meals. Small bites, approx [id number] Small sips (approx 10mL) Eat smaller/more frequent meals. Sleep on your left side and/or sleep on an incline (e.g., 30 degree wedge pillow). Do not eat/drink for 2 hrs before going to bed. Control risk factors for aspiration pneumonia via (a) thorough oral hygiene & (b) maintaining physical mobility as tolerated ----- OBJECTIVE Oral/Motor and Oral Peripheral Screen was unremarkable. Videofluoroscopic Swallow Evaluation (VFSE/MBSS) was conducted in the lateral[ and [id number]] projection by Speech-Language Pathologist, in collaboration with Radiologist, to evaluate oropharyngeal swallow function. Anatomic view under fluoroscopy: PO Barium Contrast Trials Oral barium water-soluble contrast was administered as follows: IDDSI Level 0 Varibar thin liquid (40% w/v) IDDSI Level 2 Varibar nectar thick/mildly thick liquid (40% w/v) IDDSI Level 4 Varibar pudding/pureed/extremely thick (40% w/v) IDDSI Level 7 Regular Solid: 1/2 guadalupe cracker coated in 3 mL Varibar pudding 13 mm barium tablet taken with Thin Liquids. MBSImP Component Scores: 3 COMPONENT Scale SCORE 1 Lip closure (0-4) 0 Resulted in no labial escape 2 Hold Position (0-3) 0 Maintained a cohesive bolus between tongue to palatal seal 3 Bolus Preparation (0-4) 0 Resulted in timely and efficient chewing and mashing 4 Bolus Transport (0-4) 0 Was with brisk tongue motion 5 Oral Residue (0-4) 1 Was a trace, lining oral structures 6 Swallow Initiation (0-4) 2 Occurred as bolus head at posterior laryngeal surface of epiglottis 7 Soft Palate Elevation (0-4) 0 Resulted in no bolus between soft palate and the pharyngeal wall 8 Laryngeal Elevation (0-3) 1 Was decreased with partial superior movement of thyroid cartilage/partial approximation of arytenoids to epiglottic petiole 9 Anterior Hyoid Motion (0-2) 0 Demonstrated complete anterior movement 10 Epiglottic Movement (0-2) 1 Resulted in partial inversion (inconsistent, improved with larger bolus) 11 Laryngeal Closure (0-2) 1 Was incomplete with narrow a column of air/contrast in laryngeal vestibule 12 Pharyngeal Stripping Wave (0-2) 0 Was present and complete 13 Pharyngeal Contraction (0-3) 0 Was complete 14 PES Opening (0-3) 0 Was completely distended and complete duration with no obstruction of flow 15 Tongue Base Retraction (0-4) 1 Allowed a trace column of contrast or air between tongue base and pharyngeal wall 16 Pharyngeal Residue (0-4) 2 Was a collection of residue within or on pharyngeal structures 17 Esophageal Clearance (0-4) 2 Resulted in esophageal retention with retrograde flow below pharyngoesophageal segment Results: 3 COMPONENT Scale SCORE 1 Oral Score (0-18) 2 2 Pharyngeal Score (0-29) 5 3 Esophageal Score (0-4) 2 Penetration-Aspiration Scale: 3 COMPONENT Scale SCORE 1 Thin liquid (1-8) 5 Contrast entered the airway, contacted the vocal folds, and was not ejected from the airway. 2 [place] thick (1-8) 1 Contrast did not enter the airway 3 Honey thick (1-8) na 4 Pudding thick (1-8) 1 Contrast did not enter the airway 5 Cookie (1-8) 1 Contrast did not enter the airway Trialed Compensatory Strategies & Outcome: Maneuvers Successful(+) Unsuccessful(-) Postures Successful(+) Unsuccessful(-) 3 second Preparatory Set? ?+/- Chin Tuck Posture? ? Cough? ? Posterior Head tilt? Reflexive? Cued? Throat Clear? ? Head Tilt to? Reflexive? Left? Cued? Right? ? Saliva swallow? ?+/- Head Turn/Rotate to? ? Supraglottic Swallow? Left? ? Super-supraglottic Swallow? Right? ? 3 Bolus Modifications Successful (+) Unsuccessful (-) Delivery/Alternating Consistencies ? ? Follow with Liquid Wash ?? Follow with Solid Bolus? Delivery/Via Straw? ? Reduced Volume? ?+ Reduced Rate of Intake? ?+ Increased Viscosity? ?+/- Other:?? ? Thank you for allowing us to take part in this patient's care. Please feel free to contact the [facility] Speech Language Pathology Department with any questions/concerns.
[2024-01-08] MEDS: Barium Sulfate 700 MG TAB PO (15:06)
[2024-01-08] MEDS: Barium Sulfate 81% w/w for Oral Suspension 148 GM BTL PO (15:10)
[2024-01-08] MEDS: Barium Sulfate Oral Paste 40% W/V 230 ML TUBE PO (15:12)
--- NOTE | 2024-01-08 15:14 | DI.RAD_ITS ---
Exam(s) RF MODIFIED SPEECH BA SWALLOW TECHNIQUE: Modified barium swallow was performed in conjunction with speech pathology. CONTRAST MATERIAL: Multiple consistencies of oral barium contrast were administered. COMPARISON: No exams were available for comparison FINDINGS: Laryngeal penetration was observed on with thin liquids. No significant pooling in the vallecula or piriform sinuses. No evidence of Zenker's diverticulum prominent cricopharyngeus muscle impression. Small osteophytes seen in the anterior cervical spine, at C5-6. No evidence of distal esophageal stricture. Speech pathology report to follow. IMPRESSION: Laryngeal penetration with thin liquids. RADIATION DOSE DELIVERED: katherin Brown=21.7 mGy
[2024-01-08] MEDS: Barium Sulfate 40% W/V 1500 CPS 250 ML BTL PO (15:15)
[2024-01-08] MEDS: Barium Sulfate 40% W/V 240 ML BTL PO (15:16)
== END ==
PROVIDERS: PCP Student in an Organized Health Care Education/Training Program; Visit Provider Student in an Organized Health Care Education/Training Program
DX: K22.0 Achalasia of cardia (principal); R13.10 Dysphagia, unspecified; T18.108A Unspecified foreign body in esophagus causing other injury, initial encounter
CPT/HCPCS: 92526; 74221

== ENCOUNTER → 2024-02-24 03:14 | Outpatient (CLI) | payer MEDICARE, SELFPAY ==
--- NOTE | 2024-02-24 08:10 | DI.CTLCSR_ITS ---
Exam(s) CT CHEST LUNG CANCER SCREEN EXAM: CT CHEST LUNG CANCER SCREEN CLINICAL HISTORY: Screening for lung cancer,former smoker, z87.891 TECHNIQUE: Imaging Protocol: Axial computed tomography images with coronal and sagittal reformatted images were created and reviewed COMPARISON: CT CT CHEST LUNG CANCER SCREEN from 10/26/[address] CHEST LUNG CANCER SCREEN from 01/24/2023 FINDINGS: Tracheobronchial tree: Patent where visualized. Pulmonary parenchyma: No consolidation or dominant measurable mass. No architectural distortion. Lung Nodules: There is a stable 3-4 mm nodule in the right lower lobe (series 3, image 454). No new pulmonary nodules. Mediastinum and Phyllis: No dominant adenopathy or fluid collection. The esophagus is unremarkable. Thyroid gland: Unremarkable. Lymph nodes: Unremarkable. Pleura: No effusion or pneumothorax. Heart: The heart is not dilated. Coronary artery calcification and/or stents are present. No pericar dial effusion. Aorta: Thoracic aorta non-dilated.Atherosclerotic calcification is present. Upper abdomen: Unremarkable. Soft Tissues: Unremarkable. Bones: Within normal limits. IMPRESSION: Stable right lower lobe pulmonary nodule. No new nodules. Lung RADS Cat 2 - Benign Appearance / Behavior: Nodules with a very low likelihood of becoming a clin ically active cancer due to size or lack of growth Lung-RADS 1.0 CATEGORIES: Category 0 - Prior chest CT exam(s) being located for comparison. Category 1 - Annual screening in 12 months. No nodules or definitely benign nodules. Category 2 - Annual screening in 12 months. Benign appearance. Nodules with low likelihood of becomin g active cancer. Category 3 - 6-month follow-up. Probably benign. Short-term follow-up suggested. Nodules with low lik elihood of becoming active cancer. Category 4A - 3-month follow-up and CT/PET if >8 mm in size. Suspicious finding. Findings which requi re additional testing. Category 4B - Findings which require additional testing and tissue sampling. Suspicious finding. Category 4X - Category 3 or 4 nodules with additional features or imaging findings that increases the suspicion of malignancy. Modifier S- Potentially clinically significant finding. (Non lung cancer) RADIATION DOSE DELIVERED: 79.35mGy.cm Total DLP 79.35mGy.cmTotal DLP DATA REPOSITORY: All CT scans at this facility are submitted to the National Radiology Data Registry (NRDR) Dose Index Registry (DIR) with the [employer] (ACR). RADIATION OPTIMIZATION: All CT scans at this facility use at least one of these dose optimization te chniques: automated exposure control; mA and/or kV adjustment per patient size (includes targeted exa ms where dose is matched to clinical indication); or iterative reconstruction.
== END ==
PROVIDERS: PCP Student in an Organized Health Care Education/Training Program; Visit Provider Student in an Organized Health Care Education/Training Program
DX: Z12.2 Encounter for screening for malignant neoplasm of respiratory organs (principal); R91.1 Solitary pulmonary nodule; Z87.891 Personal history of nicotine dependence
CPT/HCPCS: 71271

== ENCOUNTER → 2024-03-16 10:43 | Outpatient (BNVA) | payer MEDICARE, SELFPAY | PROVIDERS: PCP Student in an Organized Health Care Education/Training Program; Referring Provider Student in an Organized Health Care Education/Training Program; Visit Provider Student in an Organized Health Care Education/Training Program | DX: M65.332 Trigger finger, left middle finger (principal) | CPT/HCPCS: 20550; J1010 ==

== ENCOUNTER 2024-06-17 15:44 | Outpatient (CLI) | payer MEDICARE, SELFPAY ==
--- NOTE | 2024-06-17 13:45 | DI.RAD_ITS ---
Exam(s) XR SHOULDER LT COMPLETE 2+V EXAM: XR SHOULDER LT COMPLETE 2+V CLINICAL HISTORY: LEFT SHOULDER PAIN. TECHNIQUE: 2D digital imaging was performed. COMPARISON: No exams were available for comparison FINDINGS: Two views No evidence of fracture or dislocation and no soft tissue calcifications in the subacromial space. N o obvious degenerative changes in the glenohumeral joint. Minimal findings in the AC joint. Clavicl e appears intact. Coracoid process is intact. Bone density normal. No osseous lesions. No os acro miale. IMPRESSION: No significant osseous findings on these two views of the left shoulder. DATA REPOSITORY: RADIATION DOSE DELIVERED:
== END 2024-06-17 15:45 | disposition home or self-care (01) ==
LOC: DIORS 15:44
PROVIDERS: PCP Student in an Organized Health Care Education/Training Program; Referring Provider Student in an Organized Health Care Education/Training Program; Visit Provider Student in an Organized Health Care Education/Training Program
DX: M75.52 Bursitis of left shoulder
CPT/HCPCS: 99213; 73030

== ENCOUNTER 2024-07-13 01:41 | Outpatient (CLI) | payer MEDICARE, SELFPAY ==
[2024-07-13 08:15] LABS: HCT 40.4 % (40.0-50.0); HGB 13.9 g/dL (13.5-17.5); MCH 30.8 pg (27.0-33.0); MCHC 34.4 % (32.0-36.0); MCV 89 fL (80-95); Platelet Count 211 10^3/uL (130-400); RBC 4.52 10^6/uL (4.36-5.78); RDW 12.2 % (11.8-14.1); RDW-SD 39.8 fL; WBC 6.82 10^3/uL (4.4-10.8)
[2024-07-13 09:01] LABS: ALT 43 U/L (16-63); AST 31 U/L (15-37); Albumin 3.6 g/dL (3.4-5.0); Alkaline Phosphatase 67 U/L (46-116); Anion Gap 7.2 mmol/L (3-11); BUN 16 mg/dL (7-18); Bilirubin, Total 0.81 mg/dL (0.2-1.0); CO2 29.8 mmol/L (21.0-32.0); Calcium 8.9 mg/dL (8.5-10.1); Calculated LDL 77 mg/dL (<100); Chloride 105 mmol/L (98-107); Cholesterol 195 mg/dL (<200); Estimated GFR 81.47 (mL/min/1.73m2); Glucose 128 mg/dL (74-106); HDL Cholesterol 70 mg/dL (40-60); Potassium 3.8 mmol/L (3.5-5.1); Sodium 142 mmol/L (136-145); TSH (W/Ref FT4) 1.68 uIU/mL (0.36-3.74); Total Protein 7.1 g/dL (6.4-8.2); Triglyceride 240 mg/dL (<150)
[2024-07-13 18:20] LABS: PSA, Diagnostic 0.2 ng/mL (<=4.5)
== END 2024-07-13 01:42 | disposition home or self-care (01) ==
LOC: LBO 01:42
PROVIDERS: PCP Student in an Organized Health Care Education/Training Program; Visit Provider Nurse Practitioner Gerontology
DX: N13.8 Other obstructive and reflux uropathy (principal); N40.1 Benign prostatic hyperplasia with lower urinary tract symptoms; Z80.42 Family history of malignant neoplasm of prostate; D64.9 Anemia, unspecified; E03.9 Hypothyroidism, unspecified; M77.9 Enthesopathy, unspecified; Z91.89 Other specified personal risk factors, not elsewhere classified; I10 Essential (primary) hypertension; K90.9 Intestinal malabsorption, unspecified
CPT/HCPCS: 36415; 80053; 80061; 82306; 85027; 84153; 84443

== ENCOUNTER → 2024-07-20 08:31 | Outpatient (BNVA) | payer MEDICARE, SELFPAY | PROVIDERS: PCP Student in an Organized Health Care Education/Training Program; Visit Provider Nurse Practitioner Gerontology | DX: N40.1 Benign prostatic hyperplasia with lower urinary tract symptoms (principal); N13.8 Other obstructive and reflux uropathy; Z80.42 Family history of malignant neoplasm of prostate | CPT/HCPCS: 51798; 99213 ==

== ENCOUNTER → 2024-07-28 14:39 | Outpatient (BNVA) | payer MEDICARE, SELFPAY | PROVIDERS: PCP Student in an Organized Health Care Education/Training Program; Referring Provider Student in an Organized Health Care Education/Training Program | DX: M75.52 Bursitis of left shoulder (principal) | CPT/HCPCS: 20610; J1010 ==

== ENCOUNTER 2024-10-23 00:31 | Outpatient (CLI) | payer MEDICARE, SELFPAY ==
--- NOTE | 2024-10-23 | DI.MRI_ITS ---
Exam(s) MR UPPER JOINT LT W EXAM: MR UPPER JOINT LT W CLINICAL HISTORY: Lt rotator cuff tear, M75.102. TECHNIQUE: Multiplanar multisequence MRI was performed. MR arthrogram was performed. COMPARISON: CR XR SHOULDER LT COMPLETE 2+V from 06/17/2024 FINDINGS: BONES: There is no fracture or contusion pattern. JOINTS: There are mild degenerative changes seen at the acromioclavicular joint. Small subchondral c ysts are seen in the lateral aspect of the humeral head. The glenohumeral joint is normal. TENDONS: Supraspinatus: There is mild hyperintense signal seen in the supraspinatus tendon at its insertion si te. This may represent tendinosis or possible partial tear. No evidence of an articular surface tea r. Infraspinatus: Unremarkable. Subscapularis: Unremarkable. Teres Minor: Unremarkable. Biceps and [place]: Unremarkable. MUSCLES: Unremarkable. GLENOID LABRUM: There is some contrast seen undercutting a portion of the superior labrum suspicious for tear. The remainder of the labrum is unremarkable. SOFT TISSUES: Unremarkable. LIGAMENTS: Unremarkable. OTHER: There is a small amount of fluid seen in the subacromial subdeltoid bursa. IMPRESSION: 1. Hyperintense signal seen on the T2 weighted images within the supraspinatus tendon at its insertio n site suspicious for tendinosis. Intrasubstance tear should may also be considered. 2. Small amount of fluid seen in the subacromial subdeltoid bursa. 3. Contrast seen undercutting a portion of the superior labrum in the AP direction suspicious for a s uperior labral tear. 4. Degenerative changes are seen at the acromioclavicular joint. DATA REPOSITORY:
--- NOTE | 2024-10-23 13:44 | DI.RAD_ITS ---
Exam(s) RF ARTHROGRAM RAD W CT OR MRI EXAM: RF ARTHROGRAM RAD W CT OR MRI CLINICAL HISTORY: Lt shoulder rotator cuff tear, M75.102 TECHNIQUE: 2D and realtime digital imaging was performed. CONTRAST MATERIAL: Water soluble contrast was administered. COMPARISON: No exams were available for comparison FINDINGS: Fluoroscopy was provided for Dr. Henrique Maria during the performance of a left shoulder arthrogram. The patient was prepped and draped in the usual sterile fashion. Local anesthesia was administered. The joint was accessed using a spinal needle and confirmed under fluoroscopy. A solution containing 0.15 mL Dotarem, 10 mL Omnipaque and 10 mL normal saline was injected into the joint. Images were obt ained. The patient tolerated the procedure well. Final instructions were given to the patient and the y left the department in good condition. IMPRESSION: Successful arthrogram under fluoroscopic guidance. The patient was advised to return to the emergency room if any signs of bleeding or infection occur. RADIATION DOSE DELIVERED: Kar=4.1 mGy
[2024-10-23] MEDS: Omnipaque 300 MG/ML 10 ML BTL IJ (13:48)
[2024-10-23] MEDS: Bupivacaine 0.5% Pres-Free 10 ML VIAL IJ (13:50)
[2024-10-23] MEDS: Gadoterate meglumine 20 ML VIAL IVP (13:51)
== END 2024-10-23 00:51 ==
LOC: DI 00:31
PROVIDERS: PCP Student in an Organized Health Care Education/Training Program; Visit Provider Orthopaedic Surgery
DX: M75.102 Unspecified rotator cuff tear or rupture of left shoulder, not specified as traumatic (principal)
CPT/HCPCS: 23350; 73040; 73222; J0665

== ENCOUNTER 2024-12-08 00:13 | Outpatient (CLI) | payer MEDICARE, SELFPAY ==
--- NOTE | 2024-12-08 | DI.MRI_ITS ---
Exam(s) MR CERVICAL SPINE WO EXAM: MR CERVICAL SPINE WO CLINICAL HISTORY: Cervical spinal stenosis, M48.02; cervical radiculopathy, M54.12, weakness TECHNIQUE: Multiplanar multisequence MRI of the cervical spine was performed without intravenous con trast. COMPARISON: No exams were available for comparison FINDINGS: BONES: Vertebral body heights are maintained. Alignment is normal. Bone marrow signal intensity is wi thin normal limits. CERVICAL CORD: Craniovertebral junction is unremarkable. The cervical cord is normal size and signal intensity. SOFT TISSUES: Unremarkable. There are degenerative disc changes throughout. There is loss of disc height and minimal endplate os teophytes at C2-3 through C4-5. There are more prominent osteophytes projecting posteriorly at C5-6 and C6-7. There is no evidence of disc herniation at any level. There are facet degenerative changes throughout. Combination of the degenerative changes cause mild narrowing of the AP dimension of the central canal throughout. There is moderate narrowing of the AP dimension of the central canal at C 6 7. There is mild left neural foraminal narrowing at C3-4 and C4-5 and severe neural foraminal narrowing at C5-6. There is mild neural foraminal narrowing at C6-7. On the right there is moderate neural fo raminal narrowing at C3-4 through C5-6 and severe neural foraminal narrowing at C6-7. IMPRESSION: Degenerative disc changes with disc osteophytes projecting posteriorly at C6-7 causing moderate narro wing of the AP dimension of the central canal. Multilevel bilateral neural foraminal narrowing. DATA REPOSITORY:
--- NOTE | 2024-12-08 | DI.MRI_ITS ---
Exam(s) MR LUMBAR SPINE WO EXAM: MR LUMBAR SPINE WO CLINICAL HISTORY: Lt leg pain, M79.605; weakness of LLE, R29.898; LLE pain. TECHNIQUE: Multiplanar multisequence MRI of the Lumbar spine was performed. COMPARISON: CR XR DEXA BONE DENSITY W/WO MARIN from 07/19/2022 FINDINGS: Bones: The last intervertebral disc space is designated the L5/S1 level for the numbering purpose of this ex amination. The vertebral body heights are well maintained. Alignment: Unremarkable. The marrow signal characteristics are unremarkable. There is a small stone at the superior endplate of L2. Cord: The conus tip ends at the T12 level. It is of normal size and signal intensity. T12-L1: No focal disc herniation is present. No central spinal canal stenosis.No neural foraminal st enosis. L1-2:Mild loss of height and minimal disc bulging. No focal disc herniation is present. No central spinal canal stenosis.No neural foraminal stenosis. L2-3: No focal disc herniation is present. Mild facet degenerative changes. No central spinal canal stenosis.No neural foraminal stenosis. L3-4: Mild loss of disc height. Small endplate osteophytes and mild broad-based disc bulging.No foca l disc herniation is present. Mild facet degenerative changes. No central spinal canal stenosis.Mi ld bilateral neural foraminal narrowing. L4-5:Minimal disc bulging. No focal disc herniation is present. Moderate facet degenerative changes . Ligamentous hypertrophy. Moderate central spinal canal stenosis.No neural foraminal stenosis. L5-S1: No focal disc herniation is present. No central spinal canal stenosis.No neural foraminal st enosis. At degenerative changes of the lower SI joints. There is subchondral cyst the left sacrum adjacent t o the left SI joint. Soft tissues: The paraspinal soft tissues are unremarkable. IMPRESSION: No evidence of disc herniation. Moderate central canal stenosis mainly secondary to facet degenerative changes and ligamentous hypert rophy at L4-5. Mild neural foraminal narrowing at L3-4 secondary to combination of degenerative changes. DATA REPOSITORY:
== END 2024-12-08 00:33 ==
LOC: DI 00:15
PROVIDERS: PCP Family Medicine; Visit Provider Orthopaedic Surgery
DX: M48.02 Spinal stenosis, cervical region (principal); M48.062 Spinal stenosis, lumbar region with neurogenic claudication
CPT/HCPCS: 72141; 72148

== ENCOUNTER → 2024-12-31 08:34 | Outpatient (BNVA) | payer MEDICARE, SELFPAY | PROVIDERS: PCP Family Medicine; Referring Provider Family Medicine; Visit Provider Podiatrist | DX: L84 Corns and callosities (principal); M79.671 Pain in right foot; M79.672 Pain in left foot; R60.0 Localized edema | CPT/HCPCS: 17110 ==

== ENCOUNTER 2025-01-07 01:46 | Outpatient (CLI) | payer MEDICARE, SELFPAY ==
--- NOTE | 2025-01-07 | DI.RAD_ITS ---
Exam(s) XR CERVICAL SPINE COMP 4-5V EXAM: XR CERVICAL SPINE COMP 4-5V CLINICAL HISTORY: OTHER SPONDYLOSIS WITH RADICULOPATHY,SPINAL STENOSIS,M47.22,M48.02. TECHNIQUE: 2D digital imaging was performed. Seven views were performed. Flexion and extension lat eral views were performed in addition to the routine views. COMPARISON: No exams were available for comparison FINDINGS: BONES: No fracture or destructive lesion. Vertebral bodies are unremarkable. Facet degenerative red nges are present throughout. Varus bilateral neural foraminal narrowing from C4 C5 through C6-7 on t he left and C5-6 and C6-7 on the right. DISKS: C2-3 and C3-4 intervertebral disc spaces are maintained. There is moderate narrowing of the C4-5 through C6-7 disc spaces. There are small endplate osteophytes. ALIGNMENT: Straightening of the normal cervical lordosis secondary to degenerative changes. No sublu xation with flexion and extension. Limited range of motion. The odontoid and atlantoaxial articulat ions are normal. SOFT TISSUE: Normal. The lung apices show biapical pleural thickening. IMPRESSION: Degenerative disc changes and facet degenerative changes cause multilevel bilateral neural foraminal narrowing.. DATA REPOSITORY: RADIATION DOSE DELIVERED:
== END 2025-01-07 02:06 ==
LOC: DI 01:46
PROVIDERS: PCP Family Medicine; Visit Provider Nurse Practitioner Family
DX: M47.22 Other spondylosis with radiculopathy, cervical region (principal); M48.02 Spinal stenosis, cervical region
CPT/HCPCS: 72050

== ENCOUNTER 2025-03-23 11:12 | Outpatient (CLI) | payer MEDICARE, SELFPAY ==
--- NOTE | 2025-03-23 11:00 | RT.EKG_ITS ---
APPROVED REPORT Exam: Resting ECG Reason for Exam: Pre-op exam Patient Location: O HR:78 bpm ECG Measurements Heart Rate 78 AXIS ID 164 P 52 QRSd 99 QRS -11 QT 399 T 31 QTc 455 Conclusion Sinus rhythm...normal P axis, V-rate 50- 99 Baseline wander in lead(s) II,III,aVF,V4 Normal Electrocardiogram
== END 2025-03-23 11:13 | disposition home or self-care (01) ==
LOC: DI.KIM 11:12
PROVIDERS: PCP Family Medicine; Visit Provider Family Medicine
DX: Z01.818 Encounter for other preprocedural examination (principal)
CPT/HCPCS: 93010

== ENCOUNTER 2025-03-23 13:18 | Outpatient (CLI) | payer MEDICARE, SELFPAY ==
[2025-03-23 12:39] LABS: Abs Immature Grans 0.02 10^3/uL (0.0-0.06); Absolute Basophil Count 0.03 10^3/uL (0.0-0.2); Absolute Lymphocyte Count 1.59 10^3/uL (1.2-3.4); Absolute Monocyte Count 0.79 10^3/uL (0.1-0.8); Basophils % 0.3 %; HCT 43.1 % (40.0-50.0); HGB 14.8 g/dL (13.5-17.5); Immature Grans % 0.2 %; Lymphocytes % 17.4 %; MCHC 34.3 % (32.0-36.0); MCV 87 fL (80-95); MPV 10.1 fL (8.0-11.0); Monocytes % 8.7 %; Neutrophils % 73.4 %; Platelet Count 232 10^3/uL (130-400); RBC 4.93 10^6/uL (4.36-5.78); RDW 12.1 % (11.8-14.1); RDW-SD 39.1 fL; WBC 9.13 10^3/uL (4.4-10.8)
[2025-03-23 13:19] LABS: BUN 19 mg/dL (7-18); CREATININE 1.1 mg/dL (0.70-1.30); Calcium 9.8 mg/dL (8.5-10.1); Chloride 103 mmol/L (98-107); Estimated GFR 72.22 (mL/min/1.73m2); Glucose 136 mg/dL (74-106); Potassium 3.9 mmol/L (3.5-5.1); Sodium 140 mmol/L (136-145)
== END 2025-03-23 13:19 | disposition home or self-care (01) ==
LOC: LBO 13:18
PROVIDERS: PCP Family Medicine; Visit Provider Family Medicine
DX: Z01.818 Encounter for other preprocedural examination (principal)
CPT/HCPCS: 36415; 80048; 85025

== ENCOUNTER 2025-07-07 13:58 | Outpatient (CLI) | payer MEDICARE, SELFPAY ==
--- NOTE | 2025-07-07 05:15 | DI.US_ITS ---
Exam(s) US CAROTID EXAM: US CAROTID CLINICAL HISTORY: Previous documented stenosis, surveillance I65.21 OCCLUSION STENOSIS RT. TECHNIQUE: Ultrasound carotids performed using grayscale, color-flow, and spectral Doppler imaging. COMPARISON: US US CAROTID from 05/28/2023 FINDINGS: RIGHT CAROTID ARTERY: Plaque: There is moderate calcific plaque seen in the carotid bulb and proximal internal carotid artery. Velocity elevation: None. LEFT CAROTID ARTERY: Plaque: There is moderate calcific plaque seen in the carotid bulb and proximal internal carotid artery. Velocity elevation: None. VERTEBRAL ARTERIES: Antegrade flow. Measurements: R Bulb: 65.3cm/s PS / 22.6cm/s ED R CCA: 52.2cm/s PS / 13cm/s ED R ECA: 82.3cm/s PS / 0cm/s ED R ICA Prox: 76.4cm/s PS / 23.9cm/s ED R ICA Mid: 87.5cm/s PS / 32.4cm/s ED R ICA Distal: 95.6cm/s PS /34.5cm/s ED R Vert: 51.6cm/s PS / 16.1cm/s ED R SVR: 1.8 R DVR: 2.7 L Bulb: 96.8cm/s PS / 36.7cm/s ED L CCA: 53.8cm/s PS / 16.8cm/s ED L ECA: 94.4cm/s PS / 13.2cm/s ED L ICA Prox: 107.3cm/s PS / 35cm/s ED L ICA Mid: 93.8cm/s PS / 30.1cm/s ED L ICA Distal: 93.8cm/s PS / 36.3cm/s ED L Vert: 54.6cm/s PS / 16.3cm/s ED L SVR: 2 L DVR: 2.1 IMPRESSION: 1. No evidence for hemodynamically significant carotid stenosis. 2. Moderate calcific plaque is again seen in the carotid bulbs and proximal internal carotid arteries bilaterally. Criteria for Carotid Stenosis: Normal: ICA PSV <125 cm/s no plaque or intimal thickening is visible. <50% stenosis: ICA PSV <125 cm/s and plaque or intimal thickening is visible. 50-69% stenosis: ICA PSV is 125-250 cm/s and plaque is visible. >70% stenosis to near occlusion: ICA PSV >250 cm/s with visible plaque and luminal narrowing. DATA REPOSITORY:
== END 2025-07-07 14:18 ==
LOC: DI 13:58
PROVIDERS: PCP Family Medicine; Visit Provider Family Medicine
DX: I65.21 Occlusion and stenosis of right carotid artery (principal)
CPT/HCPCS: 20610; 73562; 99213; 93880; J7325

== ENCOUNTER 2025-07-07 15:05 | Outpatient (CLI) | payer MEDICARE, SELFPAY ==
--- NOTE | 2025-07-07 13:15 | DI.RAD_ITS ---
Exam(s) XR KNEE LT 3V AP,LAT,CLARICE EXAM: XR KNEE LT 3V AP,LAT,CLARICE CLINICAL HISTORY: LEFT KNEE PAIN. TECHNIQUE: 2D digital imaging was performed of the left knee. Three images were obtained. Merchant,AP and lateral views were obtained. COMPARISON: CR LEFT KNEE 3 VIEW COMPLETE from 04/12/2014 FINDINGS: BONES: No acute fracture is present. No bony destructive lesion is seen. There is an enthesophyte at the superior patella. JOINTS: There are moderate degenerative changes of the left knee characterized by joint space narrowing and osteophytes. The findings are most marked in the medial femoral tibial joint. There is a small joint effusion. No loose body. SOFT TISSUE: Mild atherosclerotic calcification is present. IMPRESSION: Moderate osteoarthritis of the left knee. DATA REPOSITORY: RADIATION DOSE DELIVERED:
== END 2025-07-07 15:06 | disposition home or self-care (01) ==
LOC: DIORS 15:06
PROVIDERS: PCP Family Medicine; Visit Provider Student in an Organized Health Care Education/Training Program
DX: M25.562 Pain in left knee (principal); M17.12 Unilateral primary osteoarthritis, left knee; I10 Essential (primary) hypertension
CPT/HCPCS: 20610; 73562; 99213; J7325

== ENCOUNTER 2025-07-27 00:40 | Outpatient (CLI) | payer MEDICARE, SELFPAY ==
[2025-07-27 20:10] LABS: PSA, Diagnostic 0.2 ng/mL (<=6.5)
== END 2025-07-27 00:41 | disposition home or self-care (01) ==
PROVIDERS: PCP Family Medicine; Visit Provider Nurse Practitioner Gerontology
DX: N40.1 Benign prostatic hyperplasia with lower urinary tract symptoms (principal); N13.8 Other obstructive and reflux uropathy; Z80.42 Family history of malignant neoplasm of prostate
CPT/HCPCS: 36415; 84153

== ENCOUNTER → 2025-08-03 08:25 | Outpatient (BNVA) | payer MEDICARE, SELFPAY | PROVIDERS: PCP Family Medicine; Visit Provider Nurse Practitioner Gerontology | DX: N40.1 Benign prostatic hyperplasia with lower urinary tract symptoms (principal); N13.8 Other obstructive and reflux uropathy; Z80.42 Family history of malignant neoplasm of prostate; R39.9 Unspecified symptoms and signs involving the genitourinary system | CPT/HCPCS: 99214; 51798 ==